=== PATIENT | female | born 1965 | race African-American/Black ===

== ENCOUNTER 2017-04-30 11:57 | Inpatient (IN) | payer OTHER ==
[2017-04-30 12:18] VITALS: BMI 35.1
--- NOTE | 2017-04-30 12:49 | HP ---
CIWA Score - CIWA Score Nausea/Vomitin Muscle Tremors: 3 Anxiety: 3 Agitation: 3 Paroxysmal Sweats: 2 Orientation: 0-Oriented Tacttile Disturbances: 2-Mild Itch/Numbness/Burn Auditory Disturbances: 2-Mild Harshness/Frighten Visual Disturbances: 2-Mild Sensitivity Headache: 2-Mild CIWA-Ar Total Score: 22 Admission ROS BHS - HPI Chief Complaint: I AM TIRED OF DRINKING ALCOHOL,COCAINE AND MARIJUANA Allergies/Adverse Reactions: Allergies Allergy/AdvReac Type Severity Reaction Status Date / Time Fish Containing Products Allergy Verified 04/30/17 12:45 tomato Allergy Verified 04/30/17 12:45 SHERRI Allergy Uncoded 04/30/17 12:45 History of Present Illness: THIS 51 YEARS OLD FEMALE WITH ALCOHOL,COCAINE AND MARIJUANA DEPENDENCE,SEEKING DETOX,WITHDRAWAL SYMPTOM,LAST DETOX [facility] 06/10 NICOTINE DEPENDENCE ANEMIA NON COMPLIANCE LONGEST PERIOD OF SOBRIETY Exam Limitations: No Limitations - Ebola screening Have you traveled outside of the country in the last 21 days: No (N) Have you had contact with anyone from an Ebola affected area: No Have you been sick,other than usual withdrawal symptoms: No Do you have a fever: No - Review of Systems Constitutional: Loss of Appetite, Malaise, Night Sweats, Changes in sleep, Weakness EENT: reports: Nose Congestion Respiratory: reports: No Symptoms reported Cardiac: reports: No Symptoms Reported GI: reports: Diarrhea, Nausea, Vomiting, Abdominal cramping : reports: No Symptoms Reported Musculoskeletal: reports: Back Pain, Muscle Pain Integumentary: reports: Dryness Neuro: reports: Headache, Tremors Endocrine: reports: No Symptoms Reported Hematology: reports: No Symptoms Reported Psychiatric: reports: No Sypmtoms Reported Patient History - Patient Medical History Hx Anemia: Yes (NO MED) Hx Asthma: No Hx Chronic Obstructive Pulmonary Disease (COPD): No Hx Cancer: No Hx Cardiac Disorders: No Hx Congestive Heart Failure: No Hx Hypertension: No Hx Hypercholesterolemia: No Hx Pacemaker: No HX Cerebrovascular Accident: No Hx Seizures: No Hx Dementia: No Hx Diabetes: No Hx Gastrointestinal Disorders: No Hx Liver Disease: No Hx Genitourinary Disorders: No Hx Sexually Transmitted Disorders: No Hx Renal Disease (ESRD): No Hx Thyroid Disease: No Hx Human Immunodeficiency Virus (HIV): No (08/31 NEGATIVE) Hx Hepatitis C: No Hx Depression: No Hx Suicide Attempt: No Hx Bipolar Disorder: No Hx Schizophrenia: No Other Medical History: NO SUICIDAL,NO HOMICIDAL - Patient Surgical History Hx Hysterectomy: Yes (PARTIAL HYSTERCTOMY FOR FIBROID IN 2011) - PPD History Previous Implant?: Yes Documented Results: Negative w/o proof Implanted On Prior [facility] Admission?: No PPD to be Administered?: Yes - Reproductive History Patient is a Female of Child Bearing Age (11 -55 yrs old): Yes Patient : No - Smoking Cessation Smoking history: Current every day smoker Have you smoked in the past 12 months: Yes Aproximately how many cigarettes per day: 20 Cigars Per Day: 0 Hx Chewing Tobacco Use: No Initiated information on smoking cessation: Yes 'Breaking Loose' booklet given: 04/30/17 - Substance & Tx. History Hx Alcohol Use: Yes Hx Substance Use: Yes Substance Use Type: Alcohol, Cocaine, Marijuana Hx Substance Use Treatment: Yes ([facility] IN 06/10) - Substances Abused Alcohol Route: Oral Frequency: Daily Amount used: 1/5TH OF VODKA/3 OF 6 PACKS OF 12 OZS OF BEER Age of first use: 16 Date of Last Use: 04/30/17 Cocaine Route: Smoking Frequency: Daily Amount used: 10$ Age of first use: 16 Date of Last Use: 04/30/17 Marijuana/Hashish Route: Smoking Frequency: 1-3 times last 30 days Amount used: 40$ Age of first use: 16 Date of Last Use: 03/10/17 Family Disease History - Family Disease History Family History: Denies Admission Physical Exam S - Vital Signs Vital Signs: Vital Signs - 24 hr 04/30/17 12:13 Temperature 97.9 F Pulse Rate 91 H Respiratory 18 Rate Blood Pressure 125/82 - Physical General Appearance: Yes: Moderate Distress, Tremorous, Irritable, Sweating, Anxious HEENTM: Yes: Normal ENT Inspection, CARLOS, Pharynx Normal Respiratory: Yes: Lungs Clear, Normal Breath Sounds, No Respiratory Distress Neck: Yes: Within Normal Limits, Supple, Trachea in good position Breast: Yes: Within Normal Limits Cardiology: Yes: Within Normal Limits, Regular Rhythm, Regular Rate, S1, S2 Abdominal: Yes: Within Normal Limits, Normal Bowel Sounds, Non Tender, Flat, Soft Genitourinary: Yes: Within Normal Limits Back: Yes: Within Normal Limits, Muscle Spasm Musculoskeletal: Yes: full range of Motion, Back pain, Muscle Pain Extremities: Yes: Tremors Neurological: Yes: sports reporter II-XII NML intact, Alert, Motor Strength 5/5 Integumentary: Yes: Dry Lymphatic: Yes: Within Normal Limits - Diagnostic (1) Alcohol dependence with uncomplicated withdrawal Current Visit: Yes Status: Acute (2) Cocaine dependence Current Visit: Yes Status: Acute (3) Syncope Current Visit: Yes Status: Acute (4) Nicotine dependence Current Visit: Yes Status: Acute (5) History of partial hysterectomy Current Visit: Yes Status: Acute (6) Cannabis dependence Current Visit: Yes Status: Acute Cleared for Admission [facility] - Detox or Rehab [facility] Level of Care: Medically Managed Detox Regimen/Protocol: Librium [facility] Breath Alcohol Content Breath Alcohol Content: 0.20 Urine Pregancy Test - Result Urine Test Results: Negative- NO Line Present Urine Drug Screen - Results Drug Screen Negative: No Urine Drug Screen Results: NEGRA-Cocaine, OPI-Opiates, BZO-Benzodiazepines
[2017-04-30] MEDS ORDERED: chlordiazePOXIDE HCL 25 MG CAPSULE PO PRN (13:03)
[2017-04-30] MEDS ORDERED: ACETAMINOPHEN 325 MG TABLET (FP) PO PRN (13:03)
[2017-04-30] MEDS ORDERED: P-EPHED 60MG/TRIPROLIDI 2.5MG TABLET PO PRN (13:03)
[2017-04-30] MEDS ORDERED: MAG HYDROX/AL HYDROX/SIMETH 30 ML UNIT-DOSE CUP PO PRN (13:03)
[2017-04-30] MEDS ORDERED: MAGNESIUM HYDROX 2400MG/30ML ORAL SUSPENSION 30 ML CUP PO PRN (13:03)
[2017-04-30] MEDS ORDERED: MAGNESIUM CITRATE 300 ML BOTTLE PO PRN (13:03)
[2017-04-30] MEDS ORDERED: MENTHOL/PHENOL 1 EACH UD MM PRN (13:03)
[2017-04-30] MEDS ORDERED: guaiFENesin/D-METHORPHAN HB 10 ML UNIT-DOSE CUPS PO PRN (13:03)
[2017-04-30] MEDS ORDERED: IBUPROFEN 400 MG TABLET (FP) PO PRN (13:03)
[2017-04-30] MEDS ORDERED: LOPERAMIDE HCL 2 MG CAPSULE PO PRN (13:03)
[2017-04-30] MEDS ORDERED: hydrOXYzine PAMOATE 50 MG CAPSULE (FP) PO PRN (13:03)
[2017-04-30] MEDS ORDERED: chlordiazePOXIDE HCL 25 MG CAPSULE PO ONE (13:03)
[2017-04-30 19:48] LABS: URINE APPEARANCE TURBID; URINE BILIRUBIN NEGATIVE (NEGATIVE); URINE BLOOD 2+ (NEGATIVE); URINE COLOR YELLOW; URINE GLUCOSE (UA) NEGATIVE (NEGATIVE); URINE KETONE NEGATIVE (NEGATIVE); URINE LEUK ESTERASE NEGATIVE (NEGATIVE); URINE NITRITE NEGATIVE (NEGATIVE); URINE UROBILINOGEN 4.0 E.U/dl mg/dL (0.2-1.0)
[2017-04-30 19:50] LABS: URINE PROTEIN 1+ (NEGATIVE)
[2017-04-30 19:53] LABS: URINE BACTERIA MODERATE /hpf (NONE SEEN)
[2017-04-30] MEDS: chlordiazePOXIDE HCL 25 MG CAPSULE PO SCH ×2 (21:08→22:51)
[2017-04-30] MEDS: THIAMINE HCL 100 MG TABLET (FP) PO SCH (22:51)
[2017-05-01] MEDS: chlordiazePOXIDE HCL 25 MG CAPSULE PO SCH ×4 (05:46→22:32)
--- NOTE | 2017-05-01 09:24 | PN ---
BHS CIWA - CIWA Score Nausea/Vomitin-Mild Nausea/No Vomiting Muscle Tremors: 4-Moderate,w/Arms Extend Anxiety: 4-Mod. Anxious/Guarded Agitation: 4-Moderately Restless Paroxysmal Sweats: 1-Minimal Palms Moist Orientation: 0-Oriented Tacttile Disturbances: 1-Very Mild Itch/Numbness Auditory Disturbances: 0-None Visual Disturbances: 0-None Headache: 2-Mild CIWA-Ar Total Score: 17 BHS Progress Note (SOAP) Subjective: sweat tremor headache released by resting anxiety irritable Objective: 05/01/17 09:22 Vital Signs Temperature 98.1 F 05/01/17 06:26 Pulse Rate 67 05/01/17 06:26 Respiratory Rate 16 05/01/17 06:26 Blood Pressure 111/66 05/01/17 06:26 O2 Sat by Pulse Oximetry (%) Laboratory Last Values Urine Color Yellow 04/30/17 18:30 Urine Appearance Turbid 04/30/17 18:30 Urine pH 5.0 (5.0-8.0) 04/30/17 18:30 Ur Specific [place] 1.030 (1.001-1.035) 04/30/17 18:30 Urine Protein 1+ (NEGATIVE) H 04/30/17 18:30 Urine Glucose (UA) Negative (NEGATIVE) 04/30/17 18:30 Urine Ketones Negative (NEGATIVE) 04/30/17 18:30 Urine Blood 2+ (NEGATIVE) H 04/30/17 18:30 Urine Nitrite Negative (NEGATIVE) 04/30/17 18:30 Urine Bilirubin Negative (NEGATIVE) 04/30/17 18:30 Urine Urobilinogen 4.0 e.u/dl mg/dL (0.2-1.0) H 04/30/17 18:30 Ur Leukocyte Esterase Negative (NEGATIVE) 04/30/17 18:30 Urine WBC (Auto) 124 /hpf (3-5) 04/30/17 18:30 Urine RBC (Auto) None /hpf (0-3) 04/30/17 18:30 Urine Bacteria Moderate /hpf (NONE SEEN) 04/30/17 18:30 lab noted Assessment: 05/01/17 09:23 withdrawal sx Plan: continue detox
[2017-05-01 09:52] LABS: HEMATOCRIT 39.8 % (32.4-45.2); HEMOGLOBIN 12.4 GM/dL (10.7-15.3); MCH 25.7 pg (25.7-33.7); MCHC 31.2 g/dl (32.0-36.0); MEAN CELL VOLUME 82.2 fl (80-96); MEAN PLT VOLUME 8.6 fl (7.5-11.1); PLATELET COUNT 183 K/MM3 (134-434); RBC 4.84 M/mm3 (3.60-5.2); RDW 14.9 % (11.6-15.6); WHITE BLOOD COUNT 4.9 K/mm3 (4.0-10.0)
[2017-05-01 09:59] LABS: CHLORIDE 106 mmol/L (98-107); POTASSIUM 3.8 mmol/L (3.5-5.1); SODIUM 142 mmol/L (136-145)
[2017-05-01 10:09] LABS: ALBUMIN 3.3 g/dl (3.4-5.0); ALK PHOS 54 U/L (45-117); ANION GAP 7 (8-16); BILIRUBIN,TOTAL 0.5 mg/dL (0.2-1.0); BLOOD UREA NITROGEN 16 mg/dL (7-18); CALCIUM 7.9 mg/dL (8.5-10.1); CO2 29 mmol/L (21-32); CREATININE 0.8 mg/dL (0.55-1.02); GLUCOSE,RANDOM 91 mg/dL (74-106); SGOT/AST 9 U/L (15-37); SGPT/ALT 14 U/L (12-78); TOT PROT 6.3 g/dl (6.4-8.2)
[2017-05-01] MEDS: PRENATAL VITAMINS W/ FOLIC ACID TABLET (FP) PO SCH (12:25)
--- NOTE | 2017-05-01 17:42 | EKG ---
Test Reason : Blood Pressure : / mmHG Vent. Rate : 077 BPM Atrial Rate : 077 BPM P-R Int : 096 ms QRS Dur : 124 ms QT Int : 434 ms P-R-T Axes : 075 010 006 degrees QTc Int : 491 ms SINUS RHYTHM WITH SHORT PA BASELINE ARTIFACT NO PREVIOUS ECGS AVAILABLE Confirmed by WINSTON ESQUEDA MD ([id number]) on 05/01/2017 5:42:20 PM Referred By: Felipe Oliveira Confirmed By:WINSTON ESQUEDA MD
[2017-05-01] MEDS: THIAMINE HCL 100 MG TABLET (FP) PO SCH (22:32)
[2017-05-02] MEDS: chlordiazePOXIDE HCL 25 MG CAPSULE PO SCH ×2 (05:32→10:47)
--- NOTE | 2017-05-02 09:27 | PN ---
S CIWA - CIWA Score Nausea/Vomitin-Mild Nausea/No Vomiting Muscle Tremors: 3 Anxiety: 3 Agitation: 3 Paroxysmal Sweats: 1-Minimal Palms Moist Orientation: 0-Oriented Tacttile Disturbances: 1-Very Mild Itch/Numbness Auditory Disturbances: 0-None Visual Disturbances: 0-None Headache: 0-None Present CIWA-Ar Total Score: 12 BHS Progress Note (SOAP) Subjective: sweat tremor anxiety irritable Objective: 05/02/17 09:26 Vital Signs Temperature 98.1 F 05/02/17 06:00 Pulse Rate 68 05/02/17 06:00 Respiratory Rate 18 05/02/17 06:00 Blood Pressure 100/61 05/02/17 06:00 O2 Sat by Pulse Oximetry (%) Laboratory Last Values WBC 4.9 K/mm3 (4.0-10.0) 05/01/17 07:00 RBC 4.84 M/mm3 (3.60-5.2) 05/01/17 07:00 Hgb 12.4 GM/dL (10.7-15.3) 05/01/17 07:00 Hct 39.8 % (32.4-45.2) 05/01/17 07:00 MCV 82.2 fl (80-96) 05/01/17 07:00 MCH 25.7 pg (25.7-33.7) 05/01/17 07:00 MCHC 31.2 g/dl (32.0-36.0) L 05/01/17 07:00 RDW 14.9 % (11.6-15.6) 05/01/17 07:00 Plt Count 183 K/MM3 (134-434) 05/01/17 07:00 MPV 8.6 fl (7.5-11.1) 05/01/17 07:00 Sodium 142 mmol/L (136-145) 05/01/17 07:00 Potassium 3.8 mmol/L (3.5-5.1) 05/01/17 07:00 Chloride 106 mmol/L (98-107) 05/01/17 07:00 Carbon Dioxide 29 mmol/L (21-32) 05/01/17 07:00 Anion Gap 7 (8-16) L 05/01/17 07:00 BUN 16 mg/dL (7-18) 05/01/17 07:00 Creatinine 0.8 mg/dL (0.55-1.02) 05/01/17 07:00 Creat Clearance w eGFR > 60 (>60) 05/01/17 07:00 Random Glucose 91 mg/dL (74-106) 05/01/17 07:00 Calcium 7.9 mg/dL (8.5-10.1) L 05/01/17 07:00 Total Bilirubin 0.5 mg/dL (0.2-1.0) 05/01/17 07:00 AST 9 U/L (15-37) L 05/01/17 07:00 ALT 14 U/L (12-78) 05/01/17 07:00 Alkaline Phosphatase 54 U/L (45-117) 05/01/17 07:00 Total Protein 6.3 g/dl (6.4-8.2) L 05/01/17 07:00 Albumin 3.3 g/dl (3.4-5.0) L 05/01/17 07:00 Urine Color Yellow 04/30/17 18:30 Urine Appearance Turbid 04/30/17 18:30 Urine pH 5.0 (5.0-8.0) 04/30/17 18:30 Ur Specific [place] 1.030 (1.001-1.035) 04/30/17 18:30 Urine Protein 1+ (NEGATIVE) H 04/30/17 18:30 Urine Glucose (UA) Negative (NEGATIVE) 04/30/17 18:30 Urine Ketones Negative (NEGATIVE) 04/30/17 18:30 Urine Blood 2+ (NEGATIVE) H 04/30/17 18:30 Urine Nitrite Negative (NEGATIVE) 04/30/17 18:30 Urine Bilirubin Negative (NEGATIVE) 04/30/17 18:30 Urine Urobilinogen 4.0 e.u/dl mg/dL (0.2-1.0) H 04/30/17 18:30 Ur Leukocyte Esterase Negative (NEGATIVE) 04/30/17 18:30 Urine WBC (Auto) 124 /hpf (3-5) 04/30/17 18:30 Urine RBC (Auto) None /hpf (0-3) 04/30/17 18:30 Urine Bacteria Moderate /hpf (NONE SEEN) 04/30/17 18:30 RPR Titer Nonreactive (NONREACTIVE) 05/01/17 07:00 HIV 1&2 Antibody Screen Negative 05/01/17 07:00 HIV P24 Antigen Negative 05/01/17 07:00 lab noted Assessment: 05/02/17 09:27 withdrawal sx Plan: continue detox
[2017-05-02 10:24] LABS: URINE APPEARANCE CLEAR; URINE BILIRUBIN NEGATIVE (NEGATIVE); URINE BLOOD 2+ (NEGATIVE); URINE COLOR LTYELLOW; URINE GLUCOSE (UA) NEGATIVE (NEGATIVE); URINE KETONE NEGATIVE (NEGATIVE); URINE LEUK ESTERASE NEGATIVE (NEGATIVE); URINE NITRITE NEGATIVE (NEGATIVE); URINE PROTEIN NEGATIVE (NEGATIVE); URINE UROBILINOGEN NEGATIVE mg/dL (0.2-1.0)
[2017-05-02 10:43] LABS: EPI CELLS RARE /HPF (FEW); URINE BACTERIA RARE /hpf (NONE SEEN); URINE MUCUS RARE
[2017-05-02] MEDS: PRENATAL VITAMINS W/ FOLIC ACID TABLET (FP) PO SCH (10:47)
[2017-05-02] MEDS: chlordiazePOXIDE 5 MG CAPSULE PO SCH ×2 (17:12→22:30)
[2017-05-02] MEDS: THIAMINE HCL 100 MG TABLET (FP) PO SCH (22:30)
[2017-05-03] MEDS: chlordiazePOXIDE 5 MG CAPSULE PO SCH ×2 (05:54→10:32)
--- NOTE | 2017-05-03 09:17 | PN ---
BHS Progress Note (SOAP) Subjective: mild sweat and tremor less anxious calm alert oriented x 3 Objective: 05/03/17 09:16 Vital Signs Temperature 96.4 F L 05/03/17 06:24 Pulse Rate 66 05/03/17 06:24 Respiratory Rate 16 05/03/17 06:24 Blood Pressure 127/86 05/03/17 06:24 O2 Sat by Pulse Oximetry (%) Laboratory Last Values WBC 4.9 K/mm3 (4.0-10.0) 05/01/17 07:00 RBC 4.84 M/mm3 (3.60-5.2) 05/01/17 07:00 Hgb 12.4 GM/dL (10.7-15.3) 05/01/17 07:00 Hct 39.8 % (32.4-45.2) 05/01/17 07:00 MCV 82.2 fl (80-96) 05/01/17 07:00 MCH 25.7 pg (25.7-33.7) 05/01/17 07:00 MCHC 31.2 g/dl (32.0-36.0) L 05/01/17 07:00 RDW 14.9 % (11.6-15.6) 05/01/17 07:00 Plt Count 183 K/MM3 (134-434) 05/01/17 07:00 MPV 8.6 fl (7.5-11.1) 05/01/17 07:00 Sodium 142 mmol/L (136-145) 05/01/17 07:00 Potassium 3.8 mmol/L (3.5-5.1) 05/01/17 07:00 Chloride 106 mmol/L (98-107) 05/01/17 07:00 Carbon Dioxide 29 mmol/L (21-32) 05/01/17 07:00 Anion Gap 7 (8-16) L 05/01/17 07:00 BUN 16 mg/dL (7-18) 05/01/17 07:00 Creatinine 0.8 mg/dL (0.55-1.02) 05/01/17 07:00 Creat Clearance w eGFR > 60 (>60) 05/01/17 07:00 Random Glucose 91 mg/dL (74-106) 05/01/17 07:00 Calcium 7.9 mg/dL (8.5-10.1) L 05/01/17 07:00 Total Bilirubin 0.5 mg/dL (0.2-1.0) 05/01/17 07:00 AST 9 U/L (15-37) L 05/01/17 07:00 ALT 14 U/L (12-78) 05/01/17 07:00 Alkaline Phosphatase 54 U/L (45-117) 05/01/17 07:00 Total Protein 6.3 g/dl (6.4-8.2) L 05/01/17 07:00 Albumin 3.3 g/dl (3.4-5.0) L 05/01/17 07:00 Urine Color Ltyellow 05/02/17 08:00 Urine Appearance Clear 05/02/17 08:00 Urine pH 6.0 (5.0-8.0) 05/02/17 08:00 Ur Specific [place] 1.023 (1.001-1.035) 05/02/17 08:00 Urine Protein Negative (NEGATIVE) 05/02/17 08:00 Urine Glucose (UA) Negative (NEGATIVE) 05/02/17 08:00 Urine Ketones Negative (NEGATIVE) 05/02/17 08:00 Urine Blood 2+ (NEGATIVE) H 05/02/17 08:00 Urine Nitrite Negative (NEGATIVE) 05/02/17 08:00 Urine Bilirubin Negative (NEGATIVE) 05/02/17 08:00 Urine Urobilinogen Negative mg/dL (0.2-1.0) 05/02/17 08:00 Ur Leukocyte Esterase Negative (NEGATIVE) 05/02/17 08:00 Urine WBC (Auto) <1 /hpf (3-5) 05/02/17 08:00 Urine RBC (Auto) 5 /hpf (0-3) 05/02/17 08:00 Ur Epithelial Cells Rare /HPF (FEW) 05/02/17 08:00 Urine Bacteria Rare /hpf (NONE SEEN) 05/02/17 08:00 Urine Mucus Rare 05/02/17 08:00 RPR Titer Nonreactive (NONREACTIVE) 05/01/17 07:00 HIV 1&2 Antibody Screen Negative 05/01/17 07:00 HIV P24 Antigen Negative 05/01/17 07:00 lab noted Assessment: 05/03/17 09:17 mild withdrawal sx Plan: medically supervised detox
[2017-05-03] MEDS: PRENATAL VITAMINS W/ FOLIC ACID TABLET (FP) PO SCH (10:32)
[2017-05-03] MEDS: chlordiazePOXIDE HCL 10 MG CAPSULE PO SCH ×2 (16:54→22:16)
[2017-05-03] MEDS: THIAMINE HCL 100 MG TABLET (FP) PO SCH (22:16)
[2017-05-04] MEDS: chlordiazePOXIDE HCL 10 MG CAPSULE PO SCH (05:50)
[2017-05-04 06:24] VITALS: BP 122/70; PULSE 66; TEMP 97.1
--- NOTE | 2017-05-04 08:27 | DS ---
[facility] Detox Discharge Summary Admission Date: 04/30/17 Discharge Date: 05/04/17 - History Present History: Alcohol Dependence - Physical Exam Results Vital Signs: Vital Signs Temperature 97.1 F L 05/04/17 06:24 Pulse Rate 66 05/04/17 06:24 Respiratory Rate 16 05/04/17 06:24 Blood Pressure 122/70 05/04/17 06:24 O2 Sat by Pulse Oximetry (%) Pertinent Admission Physical Exam Findings: withdrawal sx Vital Signs Temperature 97.1 F L 05/04/17 06:24 Pulse Rate 66 05/04/17 06:24 Respiratory Rate 16 05/04/17 06:24 Blood Pressure 122/70 05/04/17 06:24 O2 Sat by Pulse Oximetry (%) Laboratory Last Values WBC 4.9 K/mm3 (4.0-10.0) 05/01/17 07:00 RBC 4.84 M/mm3 (3.60-5.2) 05/01/17 07:00 Hgb 12.4 GM/dL (10.7-15.3) 05/01/17 07:00 Hct 39.8 % (32.4-45.2) 05/01/17 07:00 MCV 82.2 fl (80-96) 05/01/17 07:00 MCH 25.7 pg (25.7-33.7) 05/01/17 07:00 MCHC 31.2 g/dl (32.0-36.0) L 05/01/17 07:00 RDW 14.9 % (11.6-15.6) 05/01/17 07:00 Plt Count 183 K/MM3 (134-434) 05/01/17 07:00 MPV 8.6 fl (7.5-11.1) 05/01/17 07:00 Sodium 142 mmol/L (136-145) 05/01/17 07:00 Potassium 3.8 mmol/L (3.5-5.1) 05/01/17 07:00 Chloride 106 mmol/L (98-107) 05/01/17 07:00 Carbon Dioxide 29 mmol/L (21-32) 05/01/17 07:00 Anion Gap 7 (8-16) L 05/01/17 07:00 BUN 16 mg/dL (7-18) 05/01/17 07:00 Creatinine 0.8 mg/dL (0.55-1.02) 05/01/17 07:00 Creat Clearance w eGFR > 60 (>60) 05/01/17 07:00 Random Glucose 91 mg/dL (74-106) 05/01/17 07:00 Calcium 7.9 mg/dL (8.5-10.1) L 05/01/17 07:00 Total Bilirubin 0.5 mg/dL (0.2-1.0) 05/01/17 07:00 AST 9 U/L (15-37) L 05/01/17 07:00 ALT 14 U/L (12-78) 05/01/17 07:00 Alkaline Phosphatase 54 U/L (45-117) 05/01/17 07:00 Total Protein 6.3 g/dl (6.4-8.2) L 05/01/17 07:00 Albumin 3.3 g/dl (3.4-5.0) L 05/01/17 07:00 Urine Color Ltyellow 05/02/17 08:00 Urine Appearance Clear 05/02/17 08:00 Urine pH 6.0 (5.0-8.0) 05/02/17 08:00 Ur Specific [place] 1.023 (1.001-1.035) 05/02/17 08:00 Urine Protein Negative (NEGATIVE) 05/02/17 08:00 Urine Glucose (UA) Negative (NEGATIVE) 05/02/17 08:00 Urine Ketones Negative (NEGATIVE) 05/02/17 08:00 Urine Blood 2+ (NEGATIVE) H 05/02/17 08:00 Urine Nitrite Negative (NEGATIVE) 05/02/17 08:00 Urine Bilirubin Negative (NEGATIVE) 05/02/17 08:00 Urine Urobilinogen Negative mg/dL (0.2-1.0) 05/02/17 08:00 Ur Leukocyte Esterase Negative (NEGATIVE) 05/02/17 08:00 Urine WBC (Auto) <1 /hpf (3-5) 05/02/17 08:00 Urine RBC (Auto) 5 /hpf (0-3) 05/02/17 08:00 Ur Epithelial Cells Rare /HPF (FEW) 05/02/17 08:00 Urine Bacteria Rare /hpf (NONE SEEN) 05/02/17 08:00 Urine Mucus Rare 05/02/17 08:00 RPR Titer Nonreactive (NONREACTIVE) 05/01/17 07:00 HIV 1&2 Antibody Screen Negative 05/01/17 07:00 HIV P24 Antigen Negative 05/01/17 07:00 lab noted - Treatment Hospital Course: Detox Protocol Followed, Detoxed Safely, Responded well, Discharged Condition Good, Rehab Referral Accepted Patient has Accepted a Rehab Referral to: as per counselor arranged - Medication Discharge Medications: Ambulatory Orders NK [No Known Home Medication] 04/30/17 - Diagnosis (1) Alcohol dependence with uncomplicated withdrawal Current Visit: Yes Status: Acute - AMA Did Patient Leave Against Medical Advice: No
== END 2017-05-04 08:40 | disposition home or self-care (01) | DRG 774 ==
LOC: YASAS 11:57 → Y6N 13:47
PROVIDERS: ADMIT Internal Medicine; ATTEND Internal Medicine
PROC: HZ2ZZZZ Detoxification Services for Substance Abuse Treatment (ICD-10-PCS; principal; 2017-04-30)
DX: F10.230 Alcohol dependence with withdrawal, uncomplicated (principal); F14.20 Cocaine dependence, uncomplicated; F17.210 Nicotine dependence, cigarettes, uncomplicated; Z91.018 Allergy to other foods; Z91.013 Allergy to seafood; Z86.79 Personal history of other diseases of the circulatory system; Z90.710 Acquired absence of both cervix and uterus; Z59.0 Homelessness
CPT/HCPCS: 36415; 80053; 81003; 81015; 85027; 86593; 87389; 93005; 93010

== ENCOUNTER 2017-07-24 09:41 | Inpatient (IN) | payer OTHER ==
[2017-07-24 10:23] VITALS: BMI 35.2
--- NOTE | 2017-07-24 13:19 | HP ---
CIWA Score - CIWA Score Nausea/Vomitin-No Nausea/No Vomiting Muscle Tremors: 4-Moderate,w/Arms Extend Anxiety: 4-Mod. Anxious/Guarded Agitation: 4-Moderately Restless Paroxysmal Sweats: No Perspiration Orientation: 0-Oriented Tacttile Disturbances: 0-None Auditory Disturbances: 0-None Visual Disturbances: 0-None Headache: 0-None Present CIWA-Ar Total Score: 12 Admission ROS BHS - HPI Chief Complaint: ALCOHOL WITHDRAWAL SX Allergies/Adverse Reactions: Allergies Allergy/AdvReac Type Severity Reaction Status Date / Time Fish Containing Products Allergy Severe Hives Verified 07/24/17 11:02 tomato Allergy Severe Hives Verified 07/24/17 11:02 Milk Containing Products AdvReac diarrhea Verified 07/24/17 11:02 NKDA Allergy Uncoded 07/24/17 11:51 History of Present Illness: 51 Y/O AA/FEMALE WITH A HX OF ALCOHO,COCAINE AND MARIJUANA DEPENDENCE SEEKING DETOX [place]. Exam Limitations: No Limitations - Ebola screening Have you traveled outside of the country in the last 21 days: No Have you had contact with anyone from an Ebola affected area: No Have you been sick,other than usual withdrawal symptoms: No Do you have a fever: No - Review of Systems Constitutional: Chills, Night Sweats, Changes in sleep EENT: reports: Dental Problems (UPPER /LOWER FULL DENTURES. TOP ONLY IN PLACE.) Respiratory: reports: No Symptoms reported Cardiac: reports: No Symptoms Reported GI: reports: Poor Fluid Intake : reports: No Symptoms Reported Musculoskeletal: reports: Joint Pain (BOTH KNEE PAINS--RECENT CORTISONE INJ. IN KNEES.) Integumentary: reports: Dryness Neuro: reports: Tremors Endocrine: reports: No Symptoms Reported Hematology: reports: Anemia Psychiatric: reports: Orientated x3, Anxious, Depressed Other Systems: Reviewed and Negative Patient History - Patient Medical History Hx Anemia: Yes (NO MED) Hx Asthma: No Hx Chronic Obstructive Pulmonary Disease (COPD): No Hx Cancer: No Hx Cardiac Disorders: No Hx Congestive Heart Failure: No Hx Hypertension: No Hx Hypercholesterolemia: No Hx Pacemaker: No HX Cerebrovascular Accident: No Hx Seizures: No Hx Dementia: No Hx Diabetes: No Hx Gastrointestinal Disorders: No Hx Liver Disease: No Hx Genitourinary Disorders: No Hx Sexually Transmitted Disorders: No Hx Renal Disease (ESRD): No Hx Thyroid Disease: No Hx Human Immunodeficiency Virus (HIV): No ( NEGATIVE HX) Hx Hepatitis C: No Hx Depression: Yes (ON ONTHLY RESPERDAL INJ ,NEXT DUE 08/18/17) Hx Suicide Attempt: Yes (pill overdose at age 16;DENIES CURRENT S/I TODAY) Hx Bipolar Disorder: No Hx Schizophrenia: Yes (schizoaffectiv disorder) - Patient Surgical History Past Surgical History: Yes Hx Neurologic Surgery: No Hx Cataract Extraction: No Hx Cardiac Surgery: No Hx Lung Surgery: No Hx Breast Surgery: No Hx Breast Biopsy: No Hx Abdominal Surgery: Yes (partial hystertctomy in 2011) Hx Appendectomy: No Hx Cholecystectomy: No Hx Genitourinary Surgery: No Hx Section: Yes (x3) Hx Orthopedic Surgery: No Hx Hysterectomy: Yes (PARTIAL HYSTERCTOMY FOR FIBROID IN 2011) Anesthesia Reaction: No - PPD History Previous Implant?: Yes Documented Results: Negative w/proof Implanted On Prior [facility] Admission?: Yes Date: 05/02/17 Results: 0 mm PPD to be Administered?: No - Reproductive History Patient is a Female of Child Bearing Age (11 -55 yrs old): Yes (IN 2011) LMP comment: IN 2012 Patient : No - Smoking Cessation Smoking history: Current every day smoker Have you smoked in the past 12 months: Yes Aproximately how many cigarettes per day: 4 Cigars Per Day: 0 Hx Chewing Tobacco Use: No Initiated information on smoking cessation: Yes 'Breaking Loose' booklet given: 07/24/17 - Substance & Tx. History Hx Alcohol Use: Yes (BEER) Hx Substance Use: Yes (COCAINE/MARIJUANA) Substance Use Type: Alcohol, Cocaine, Marijuana Hx Substance Use Treatment: Yes (LAST [place] AT [facility]) - Substances Abused Crack Route: Smoking Frequency: 3-6 times per week Amount used: $500-600 Age of first use: 20 Date of Last Use: 07/23/17 Alcohol-beer Route: Oral Frequency: Daily Amount used: 3-4 6 pks. Age of first use: 16 Date of Last Use: 07/23/17 Marijuana Route: Smoking Frequency: 1-3 times last 30 days Amount used: $20 Age of first use: 18 Date of Last Use: 06/23/17 Family Disease History - Family Disease History Family Disease History: Other: Mother (HTN) Admission Physical Exam BHS - Vital Signs Vital Signs: Vital Signs - 24 hr 07/24/17 10:21 Temperature 97.6 F Pulse Rate 73 Respiratory 18 Rate Blood Pressure 132/79 - Physical General Appearance: Yes: Moderate Distress, Irritable, Anxious HEENTM: Yes: EOMI, Normocephalic, CARLOS, Pharynx Normal Respiratory: Yes: Chest Non-Tender, Lungs Clear, Normal Breath Sounds, No Respiratory Distress Neck: Yes: Supple, Trachea in good position Breast: Yes: Breast Exam Deferred Cardiology: Yes: Regular Rhythm, Regular Rate, S1, S2 Abdominal: Yes: Normal Bowel Sounds, Non Tender Genitourinary: Yes: Within Normal Limits Back: Yes: Within Normal Limits Musculoskeletal: Yes: full range of Motion, Gait Steady (ANBULATING WITH CANE) Extremities: Yes: Normal Range of Motion, Non-Tender Neurological: Yes: e learning manager II-XII NML intact, Fully Oriented, Alert, Motor Strength 5/5 Integumentary: Yes: Dry, Warm Lymphatic: Yes: Within Normal Limits - Diagnostic (1) Alcohol dependence with uncomplicated withdrawal Current Visit: Yes Status: Acute (2) Cannabis dependence Current Visit: Yes Status: Acute (3) Cocaine dependence Current Visit: Yes Status: Acute (4) Nicotine dependence Current Visit: Yes Status: Acute Qualifiers: Nicotine product type: cigarettes Substance use status: in withdrawal Qualified Code(s): F17.213 - Nicotine dependence, cigarettes, with withdrawal (5) Dermatitis Current Visit: Yes Status: Chronic (6) History of partial hysterectomy Current Visit: Yes Status: Resolved (7) Use of cane as ambulatory aid Current Visit: Yes Status: Chronic Cleared for Admission [facility] - Detox or Rehab [facility] Level of Care: Medically Managed Detox Regimen/Protocol: Librium [facility] Breath Alcohol Content Breath Alcohol Content: 0 Urine Pregancy Test - Result Urine Test Results: Negative- NO Line Present Urine Drug Screen - Results Drug Screen Negative: No Urine Drug Screen Results: NEGRA-Cocaine
[2017-07-24] MEDS ORDERED: NICOTINE POLACRILEX 2 MG GUM BC PRN (13:43)
[2017-07-24] MEDS ORDERED: chlordiazePOXIDE HCL 25 MG CAPSULE PO PRN (13:43)
[2017-07-24] MEDS ORDERED: IBUPROFEN 400 MG TABLET (FP) PO PRN (13:43)
[2017-07-24] MEDS ORDERED: MAGNESIUM CITRATE 300 ML BOTTLE PO PRN (13:43)
[2017-07-24] MEDS ORDERED: LOPERAMIDE HCL 2 MG CAPSULE PO PRN (13:43)
[2017-07-24] MEDS ORDERED: P-EPHED 60MG/TRIPROLIDI 2.5MG TABLET PO PRN (13:43)
[2017-07-24] MEDS ORDERED: MENTHOL/PHENOL 1 EACH UD MM PRN (13:43)
[2017-07-24] MEDS ORDERED: ACETAMINOPHEN 325 MG TABLET (FP) PO PRN (13:43)
[2017-07-24] MEDS ORDERED: MAG HYDROX/AL HYDROX/SIMETH 30 ML UNIT-DOSE CUP PO PRN (13:43)
[2017-07-24] MEDS ORDERED: MAGNESIUM HYDROX 2400MG/30ML ORAL SUSPENSION 30 ML CUP PO PRN (13:43)
[2017-07-24] MEDS ORDERED: guaiFENesin/D-METHORPHAN HB 10 ML UNIT-DOSE CUPS PO PRN (13:43)
[2017-07-24] MEDS: NICOTINE 14 MG/24 HOURS TOPICAL PATCH TD SCH (14:53)
[2017-07-24] MEDS: chlordiazePOXIDE HCL 25 MG CAPSULE PO SCH ×2 (17:38→22:24)
[2017-07-24 20:16] LABS: HEMATOCRIT 38.2 % (32.4-45.2); HEMOGLOBIN 12.6 GM/dL (10.7-15.3); MCH 26.8 pg (25.7-33.7); MCHC 33.1 g/dl (32.0-36.0); MEAN CELL VOLUME 81.1 fl (80-96); MEAN PLT VOLUME 8.2 fl (7.5-11.1); PLATELET COUNT 230 K/MM3 (134-434); RBC 4.71 M/mm3 (3.60-5.2); RDW 14.6 % (11.6-15.6); WHITE BLOOD COUNT 5.6 K/mm3 (4.0-10.0)
[2017-07-24 20:52] LABS: ALBUMIN 3.7 g/dl (3.4-5.0); ANION GAP 7 (8-16); BILIRUBIN,TOTAL 0.5 mg/dL (0.2-1.0); BLOOD UREA NITROGEN 11 mg/dL (7-18); CALCIUM 8.9 mg/dL (8.5-10.1); CHLORIDE 106 mmol/L (98-107); CO2 31 mmol/L (21-32); CREATININE 0.8 mg/dL (0.55-1.02); GLUCOSE,RANDOM 96 mg/dL (74-106); POTASSIUM 3.7 mmol/L (3.5-5.1); SGOT/AST 9 U/L (15-37); SGPT/ALT 11 U/L (12-78); SODIUM 144 mmol/L (136-145); TOT PROT 7.1 g/dl (6.4-8.2)
[2017-07-24 20:53] LABS: ALK PHOS 55 U/L (45-117)
[2017-07-24] MEDS ORDERED: MELATONIN 5 MG TABLETS PO PRN (22:00)
--- NOTE | 2017-07-24 22:05 | EKG ---
Test Reason : Blood Pressure : / mmHG Vent. Rate : 083 BPM Atrial Rate : 083 BPM P-R Int : 124 ms QRS Dur : 092 ms QT Int : 402 ms P-R-T Axes : 073 003 030 degrees QTc Int : 472 ms NORMAL SINUS RHYTHM POSSIBLE LEFT ATRIAL ENLARGEMENT BORDERLINE ECG WHEN COMPARED WITH ECG OF 30-APR-2017 14:41, NO SIGNIFICANT CHANGE WAS FOUND Confirmed by WINSTON ESQUEDA MD ([id number]) on 07/24/2017 10:04:41 PM Referred By: Confirmed By:WINSTON ESQUEDA MD
[2017-07-24] MEDS: NAPROXEN 500 MG TABLET (FP) PO SCH (22:24)
[2017-07-24] MEDS: THIAMINE HCL 100 MG TABLET (FP) PO SCH (22:24)
[2017-07-24] MEDS: FLUOCINONIDE 0.05% CREAM (60 GM TUBE) TP SCH (22:26)
[2017-07-24 23:00] LABS: URINE APPEARANCE TURBID; URINE BILIRUBIN NEGATIVE (<2.0 mg/dL); URINE BLOOD 2+ (NEGATIVE); URINE COLOR YELLOW; URINE GLUCOSE (UA) NEGATIVE (NEGATIVE); URINE KETONE NEGATIVE (NEGATIVE); URINE LEUK ESTERASE NEGATIVE (NEGATIVE); URINE NITRITE NEGATIVE (NEGATIVE); URINE UROBILINOGEN 4.0 E.U/dl mg/dL (0.2-1.0)
[2017-07-24 23:07] LABS: URINE PROTEIN 1+ (NEGATIVE)
[2017-07-24 23:11] LABS: URINE MUCUS FEW
[2017-07-25] MEDS: chlordiazePOXIDE HCL 25 MG CAPSULE PO SCH ×4 (05:54→22:19)
--- NOTE | 2017-07-25 09:55 | CONSULT ---
[facility] Psychiatric Consult - Data Date of interview: 07/25/17 Admission source: [facility] Identifying data: Patient is a 51 year old single female, mother of five, unemployed, receiving disability, and current lives with a roomate. This is one of multiple admissions for patient. Pt. admitted to for alcohol and cocaine dependence. Substance Abuse History: Following information confirmed with Ms. Dorsey: Smoking Cessation. Smoking history: Current every day smoker. Have you smoked in the past 12 months: Yes. Aproximately how many cigarettes per day: 4. Cigars Per Day: 0. Hx Chewing Tobacco Use: No. Initiated information on smoking cessation: Yes. 'Breaking Loose' booklet given: 07/24/17. - Substance & Tx. History. Hx Alcohol Use: Yes (BEER). Hx Substance Use: Yes (COCAINE/ MARIJUANA). Substance Use Type: Alcohol, Cocaine, Marijuana. Hx Substance Use Treatment: Yes (LAST TX AT [facility]). - Substances Abused. Crack. Route: Smoking. Frequency: 3-6 times per week. Amount used: $500-600. Age of first use: 20. Date of Last Use: 07/23/17. Alcohol-beer. Route: Oral. Frequency : Daily. Amount used: 3-4 6 pks. Age of first use: 16. Date of Last Use: . Marijuana. Route: Smoking. Frequency: 1-3 times last 30 days. Amount used: $20. Age of first use: 18. Date of Last Use: 06/23/17 Medical History: Anemia, PARTIAL HYSTERCTOMY FOR FIBROID IN 2011 Psychiatric History: Patient's first psychiatric contact was at 18 years of age at [facility].Pt. reports multiple psychiatric hospitalizations but is unable to recall the dates and names of the hospitals. Outpatient care is provided at the [facility] in the [place]. Pt. has a diagnosis of Schizoaffective disorder and is currently receiving Invega sustenna injections. Last Invega injection was received on 07/14/17. Pt. denies h/o suicide attempts. Pt. denies suicidal and homicidal ideation. Physical/Sexual Abuse/Trauma History: Denies. Mental Status Exam - Mental Status Exam Alert and Oriented to: Time, Place, Person Cognitive Function: Good Patient Appearance: Well Groomed Mood: Euthymic Affect: Mood Congruent Patient Behavior: Guarded, Cooperative Speech Pattern: Appropriate Voice Loudness: Normal Thought Process: Goal Oriented Thought Disorder: Not Present Hallucinations: Denies Suicidal Ideation: Denies Homicidal Ideation: Denies Insight/Judgement: Poor Sleep: Fair Appetite: Fair Muscle strength/Tone: Normal Gait/Station: Other (Did not observe patient) Additional Comments: Did not observe patient's gait. Psychiatric Findings - Problem List ([place] 1, 2,3) (1) Schizoaffective disorder Current Visit: Yes Status: Chronic Comment: Pt. reports invega sustenna monthly. Last injection received on 07/14/17 (2) Alcohol dependence with uncomplicated withdrawal Current Visit: Yes Status: Acute (3) Cannabis dependence Current Visit: Yes Status: Acute (4) Cocaine dependence Current Visit: Yes Status: Acute (5) Nicotine dependence Current Visit: Yes Status: Chronic Qualifiers: Nicotine product type: cigarettes Substance use status: in withdrawal Qualified Code(s): F17.213 - Nicotine dependence, cigarettes, with withdrawal - Initial Treatment Plan Initial Treatment Plan: Psychoeducation provided. Detoxification in progress. Observation.
[2017-07-25] MEDS: PRENATAL VITAMINS W/ FOLIC ACID TABLET (FP) PO SCH (10:51)
[2017-07-25] MEDS: NAPROXEN 500 MG TABLET (FP) PO SCH ×2 (10:51→22:18)
[2017-07-25] MEDS: FLUOCINONIDE 0.05% CREAM (60 GM TUBE) TP SCH ×2 (10:51→22:48)
[2017-07-25] MEDS: NICOTINE 14 MG/24 HOURS TOPICAL PATCH TD SCH (10:52)
--- NOTE | 2017-07-25 12:16 | PN ---
[facility] CIWA - CIWA Score Nausea/Vomitin-Mild Nausea/No Vomiting Muscle Tremors: 3 Anxiety: 3 Agitation: 3 Paroxysmal Sweats: 1-Minimal Palms Moist Orientation: 0-Oriented Tacttile Disturbances: 0-None Auditory Disturbances: 0-None Visual Disturbances: 0-None Headache: 0-None Present CIWA-Ar Total Score: 11 [facility] Progress Note (SOAP) Subjective: mild gi distress, tremor sweat restlessness ambulate with cane steady gait Objective: 07/25/17 12:13 Vital Signs Temperature 98.1 F 07/25/17 10:38 Pulse Rate 79 07/25/17 10:38 Respiratory Rate 20 07/25/17 10:38 Blood Pressure 129/77 07/25/17 10:38 O2 Sat by Pulse Oximetry (%) Laboratory Last Values WBC 5.6 K/mm3 (4.0-10.0) 07/24/17 12:00 RBC 4.71 M/mm3 (3.60-5.2) 07/24/17 12:00 Hgb 12.6 GM/dL (10.7-15.3) 07/24/17 12:00 Hct 38.2 % (32.4-45.2) 07/24/17 12:00 MCV 81.1 fl (80-96) 07/24/17 12:00 MCH 26.8 pg (25.7-33.7) 07/24/17 12:00 MCHC 33.1 g/dl (32.0-36.0) 07/24/17 12:00 RDW 14.6 % (11.6-15.6) 07/24/17 12:00 Plt Count 230 K/MM3 (134-434) D 07/24/17 12:00 MPV 8.2 fl (7.5-11.1) 07/24/17 12:00 Sodium 144 mmol/L (136-145) 07/24/17 12:00 Potassium 3.7 mmol/L (3.5-5.1) 07/24/17 12:00 Chloride 106 mmol/L (98-107) 07/24/17 12:00 Carbon Dioxide 31 mmol/L (21-32) 07/24/17 12:00 Anion Gap 7 (8-16) L 07/24/17 12:00 BUN 11 mg/dL (7-18) 07/24/17 12:00 Creatinine 0.8 mg/dL (0.55-1.02) 07/24/17 12:00 Creat Clearance w eGFR > 60 (>60) 07/24/17 12:00 Random Glucose 96 mg/dL (74-106) 07/24/17 12:00 Calcium 8.9 mg/dL (8.5-10.1) 07/24/17 12:00 Total Bilirubin 0.5 mg/dL (0.2-1.0) 07/24/17 12:00 AST 9 U/L (15-37) L 07/24/17 12:00 ALT 11 U/L (12-78) L 07/24/17 12:00 Alkaline Phosphatase 55 U/L (45-117) 07/24/17 12:00 Total Protein 7.1 g/dl (6.4-8.2) 07/24/17 12:00 Albumin 3.7 g/dl (3.4-5.0) 07/24/17 12:00 Urine Color Yellow 07/24/17 23:00 Urine Appearance Turbid 07/24/17 23:00 Urine pH 5.0 (5.0-8.0) 07/24/17 23:00 Ur Specific [place] 1.031 (1.001-1.035) 07/24/17 23:00 Urine Protein 1+ (NEGATIVE) H 07/24/17 23:00 Urine Glucose (UA) Negative (NEGATIVE) 07/24/17 23:00 Urine Ketones Negative (NEGATIVE) 07/24/17 23:00 Urine Blood 2+ (NEGATIVE) H 07/24/17 23:00 Urine Nitrite Negative (NEGATIVE) 07/24/17 23:00 Urine Bilirubin Negative (<2.0 mg/dL) 07/24/17 23:00 Urine Urobilinogen 4.0 e.u/dl mg/dL (0.2-1.0) H 07/24/17 23:00 Ur Leukocyte Esterase Negative (NEGATIVE) 07/24/17 23:00 Urine WBC (Auto) 62 /hpf (3-5) 07/24/17 23:00 Urine RBC (Auto) 12 /hpf (0-3) 07/24/17 23:00 Urine Mucus Few 07/24/17 23:00 RPR Titer Nonreactive (NONREACTIVE) 07/24/17 12:00 HIV 1&2 Antibody Screen Negative 07/24/17 11:00 HIV P24 Antigen Negative 07/24/17 11:00 lab noted repeat ua Assessment: 07/25/17 12:15 withdrawal sx Plan: continue detox
[2017-07-25] MEDS: THIAMINE HCL 100 MG TABLET (FP) PO SCH (22:18)
[2017-07-26] MEDS: chlordiazePOXIDE HCL 25 MG CAPSULE PO SCH ×2 (05:19→10:17)
--- NOTE | 2017-07-26 09:52 | PN ---
[facility] CIWA - CIWA Score Nausea/Vomitin-No Nausea/No Vomiting Muscle Tremors: 3 Anxiety: 3 Agitation: 3 Paroxysmal Sweats: 1-Minimal Palms Moist Orientation: 0-Oriented Tacttile Disturbances: 0-None Auditory Disturbances: 0-None Visual Disturbances: 0-None Headache: 0-None Present CIWA-Ar Total Score: 10 S Progress Note (SOAP) Subjective: sweat tremor anxiety restlessness denies gi distress Objective: 07/26/17 09:52 Vital Signs Temperature 98.8 F 07/26/17 09:29 Pulse Rate 79 07/26/17 09:29 Respiratory Rate 18 07/26/17 09:29 Blood Pressure 121/76 07/26/17 09:29 O2 Sat by Pulse Oximetry (%) Laboratory Last Values WBC 5.6 K/mm3 (4.0-10.0) 07/24/17 12:00 RBC 4.71 M/mm3 (3.60-5.2) 07/24/17 12:00 Hgb 12.6 GM/dL (10.7-15.3) 07/24/17 12:00 Hct 38.2 % (32.4-45.2) 07/24/17 12:00 MCV 81.1 fl (80-96) 07/24/17 12:00 MCH 26.8 pg (25.7-33.7) 07/24/17 12:00 MCHC 33.1 g/dl (32.0-36.0) 07/24/17 12:00 RDW 14.6 % (11.6-15.6) 07/24/17 12:00 Plt Count 230 K/MM3 (134-434) D 07/24/17 12:00 MPV 8.2 fl (7.5-11.1) 07/24/17 12:00 Sodium 144 mmol/L (136-145) 07/24/17 12:00 Potassium 3.7 mmol/L (3.5-5.1) 07/24/17 12:00 Chloride 106 mmol/L (98-107) 07/24/17 12:00 Carbon Dioxide 31 mmol/L (21-32) 07/24/17 12:00 Anion Gap 7 (8-16) L 07/24/17 12:00 BUN 11 mg/dL (7-18) 07/24/17 12:00 Creatinine 0.8 mg/dL (0.55-1.02) 07/24/17 12:00 Creat Clearance w eGFR > 60 (>60) 07/24/17 12:00 Random Glucose 96 mg/dL (74-106) 07/24/17 12:00 Calcium 8.9 mg/dL (8.5-10.1) 07/24/17 12:00 Total Bilirubin 0.5 mg/dL (0.2-1.0) 07/24/17 12:00 AST 9 U/L (15-37) L 07/24/17 12:00 ALT 11 U/L (12-78) L 07/24/17 12:00 Alkaline Phosphatase 55 U/L (45-117) 07/24/17 12:00 Total Protein 7.1 g/dl (6.4-8.2) 07/24/17 12:00 Albumin 3.7 g/dl (3.4-5.0) 07/24/17 12:00 Urine Color Yellow 07/24/17 23:00 Urine Appearance Turbid 07/24/17 23:00 Urine pH 5.0 (5.0-8.0) 07/24/17 23:00 Ur Specific [place] 1.031 (1.001-1.035) 07/24/17 23:00 Urine Protein 1+ (NEGATIVE) H 07/24/17 23:00 Urine Glucose (UA) Negative (NEGATIVE) 07/24/17 23:00 Urine Ketones Negative (NEGATIVE) 07/24/17 23:00 Urine Blood 2+ (NEGATIVE) H 07/24/17 23:00 Urine Nitrite Negative (NEGATIVE) 07/24/17 23:00 Urine Bilirubin Negative (<2.0 mg/dL) 07/24/17 23:00 Urine Urobilinogen 4.0 e.u/dl mg/dL (0.2-1.0) H 07/24/17 23:00 Ur Leukocyte Esterase Negative (NEGATIVE) 07/24/17 23:00 Urine WBC (Auto) 62 /hpf (3-5) 07/24/17 23:00 Urine RBC (Auto) 12 /hpf (0-3) 07/24/17 23:00 Urine Mucus Few 07/24/17 23:00 RPR Titer Nonreactive (NONREACTIVE) 07/24/17 12:00 HIV 1&2 Antibody Screen Negative 07/24/17 11:00 HIV P24 Antigen Negative 07/24/17 11:00 lab noted 07/26/17 09:53 repeat ua result pending Assessment: 07/26/17 09:54 withdrawal sx Plan: continue detox
[2017-07-26] MEDS: PRENATAL VITAMINS W/ FOLIC ACID TABLET (FP) PO SCH (10:17)
[2017-07-26] MEDS: NAPROXEN 500 MG TABLET (FP) PO SCH ×2 (10:17→22:09)
[2017-07-26] MEDS: NICOTINE 14 MG/24 HOURS TOPICAL PATCH TD SCH (10:18)
[2017-07-26] MEDS: FLUOCINONIDE 0.05% CREAM (60 GM TUBE) TP SCH ×2 (10:18→22:50)
[2017-07-26 14:54] LABS: URINE APPEARANCE CLEAR; URINE BILIRUBIN NEGATIVE (<2.0 mg/dL); URINE BLOOD NEGATIVE (NEGATIVE); URINE COLOR LTYELLOW; URINE GLUCOSE (UA) NEGATIVE (NEGATIVE); URINE KETONE NEGATIVE (NEGATIVE); URINE LEUK ESTERASE NEGATIVE (NEGATIVE); URINE NITRITE NEGATIVE (NEGATIVE); URINE PROTEIN NEGATIVE (NEGATIVE); URINE UROBILINOGEN NEGATIVE mg/dL (0.2-1.0)
[2017-07-26] MEDS: chlordiazePOXIDE 5 MG CAPSULE PO SCH ×2 (18:00→22:09)
[2017-07-26] MEDS: THIAMINE HCL 100 MG TABLET (FP) PO SCH (22:09)
[2017-07-27] MEDS: chlordiazePOXIDE 5 MG CAPSULE PO SCH (05:33)
--- NOTE | 2017-07-27 08:37 | PN ---
[facility] Progress Note Note: received nurse reported that the patient is asking for her skin cream for 2 days and no receive her skin cream for two days case discussed with pharmacist that the patient has both of her creams but documented as refusal case discussed with the nurse encourage to administer the skin cream to the patient
[2017-07-27 08:38] VITALS: BP 114/72; PULSE 70; TEMP 98.6
[2017-07-27] MEDS ORDERED: COLLOIDAL OATMEAL 1 BAR EACH TP PRN (09:16)
[2017-07-27] MEDS ORDERED: TRIAMCINOLONE ACET 0.1% CREAM 15 GM TUBE TP SCH (10:00)
[2017-07-27] MEDS ORDERED: FLUOCINONIDE 0.05% TP SCH (10:00)
[2017-07-27] MEDS ORDERED: TRIAMCINOLONE 0.1% TP SCH (10:00)
--- NOTE | 2017-07-27 11:39 | DS ---
[facility] Detox Discharge Summary Admission Date: 07/24/17 Discharge Date: 07/27/17 - History Present History: Alcohol Dependence Additional Comments: 51 years old female demands to use her own medication staff and the patient to her property fetch her own medications sent to pharmacy for verification patient insists to leave the facility insists to terminate alcohol detox regimen health teaching on sobriety and recovery aftercare in [facility] as counselor arranged - Physical Exam Results Vital Signs: Vital Signs Temperature 98.6 F 07/27/17 04:00 Pulse Rate 70 07/27/17 04:00 Respiratory Rate 20 07/27/17 04:00 Blood Pressure 114/72 07/27/17 04:00 O2 Sat by Pulse Oximetry (%) Pertinent Admission Physical Exam Findings: withdrawal sx Vital Signs Temperature 98.6 F 07/27/17 04:00 Pulse Rate 70 07/27/17 04:00 Respiratory Rate 20 07/27/17 04:00 Blood Pressure 114/72 07/27/17 04:00 O2 Sat by Pulse Oximetry (%) Laboratory Last Values WBC 5.6 K/mm3 (4.0-10.0) 07/24/17 12:00 RBC 4.71 M/mm3 (3.60-5.2) 07/24/17 12:00 Hgb 12.6 GM/dL (10.7-15.3) 07/24/17 12:00 Hct 38.2 % (32.4-45.2) 07/24/17 12:00 MCV 81.1 fl (80-96) 07/24/17 12:00 MCH 26.8 pg (25.7-33.7) 07/24/17 12:00 MCHC 33.1 g/dl (32.0-36.0) 07/24/17 12:00 RDW 14.6 % (11.6-15.6) 07/24/17 12:00 Plt Count 230 K/MM3 (134-434) D 07/24/17 12:00 MPV 8.2 fl (7.5-11.1) 07/24/17 12:00 Sodium 144 mmol/L (136-145) 07/24/17 12:00 Potassium 3.7 mmol/L (3.5-5.1) 07/24/17 12:00 Chloride 106 mmol/L (98-107) 07/24/17 12:00 Carbon Dioxide 31 mmol/L (21-32) 07/24/17 12:00 Anion Gap 7 (8-16) L 07/24/17 12:00 BUN 11 mg/dL (7-18) 07/24/17 12:00 Creatinine 0.8 mg/dL (0.55-1.02) 07/24/17 12:00 Creat Clearance w eGFR > 60 (>60) 07/24/17 12:00 Random Glucose 96 mg/dL (74-106) 07/24/17 12:00 Calcium 8.9 mg/dL (8.5-10.1) 07/24/17 12:00 Total Bilirubin 0.5 mg/dL (0.2-1.0) 07/24/17 12:00 AST 9 U/L (15-37) L 07/24/17 12:00 ALT 11 U/L (12-78) L 07/24/17 12:00 Alkaline Phosphatase 55 U/L (45-117) 07/24/17 12:00 Total Protein 7.1 g/dl (6.4-8.2) 07/24/17 12:00 Albumin 3.7 g/dl (3.4-5.0) 07/24/17 12:00 Urine Color Ltyellow 07/26/17 10:00 Urine Appearance Clear 07/26/17 10:00 Urine pH 7.0 (5.0-8.0) D 07/26/17 10:00 Ur Specific [place] 1.010 (1.001-1.035) 07/26/17 10:00 Urine Protein Negative (NEGATIVE) 07/26/17 10:00 Urine Glucose (UA) Negative (NEGATIVE) 07/26/17 10:00 Urine Ketones Negative (NEGATIVE) 07/26/17 10:00 Urine Blood Negative (NEGATIVE) 07/26/17 10:00 Urine Nitrite Negative (NEGATIVE) 07/26/17 10:00 Urine Bilirubin Negative (<2.0 mg/dL) 07/26/17 10:00 Urine Urobilinogen Negative mg/dL (0.2-1.0) 07/26/17 10:00 Ur Leukocyte Esterase Negative (NEGATIVE) 07/26/17 10:00 Urine WBC (Auto) 62 /hpf (3-5) 07/24/17 23:00 Urine RBC (Auto) 12 /hpf (0-3) 07/24/17 23:00 Urine Mucus Few 07/24/17 23:00 RPR Titer Nonreactive (NONREACTIVE) 07/24/17 12:00 HIV 1&2 Antibody Screen Negative 07/24/17 11:00 HIV P24 Antigen Negative 07/24/17 11:00 lab noted - Treatment Hospital Course: Detox Protocol Followed, Responded well Patient has Accepted a Rehab Referral to: [facility] - Medication Discharge Medications: Ambulatory Orders Fluocinonide 0.05% Cream [Lidex 0.05% Cream -] 1 applic TP BID 07/24/17 Naproxen [Naprosyn -] 500 mg PO BID 07/24/17 Risperidone Microspheres [Risperdal Consta] 0 mg IM MONTHLY 07/24/17 Triamcinolone 0.1% Cream [Aristocort] 0 gm TP BID 07/24/17 - Diagnosis (1) Alcohol dependence with uncomplicated withdrawal Status: Acute (2) Dermatitis Status: Chronic (3) Nicotine dependence Status: Acute Qualifiers: Nicotine product type: cigarettes Substance use status: in withdrawal Qualified Code(s): F17.213 - Nicotine dependence, cigarettes, with withdrawal (4) Schizoaffective disorder Status: Suspected Qualifiers: Schizoaffective disorder type: other Qualified Code(s): F25.8 - Other schizoaffective disorders - AMA Did Patient Leave Against Medical Advice: Yes
[2017-07-27] MEDS ORDERED: chlordiazePOXIDE HCL 10 MG CAPSULE PO SCH (17:00)
== END 2017-07-27 10:18 | disposition left against medical advice (07) | DRG 770 ==
LOC: YASAS 09:41 → Y6N 14:00
PROVIDERS: ADMIT Internal Medicine; ATTEND Internal Medicine
PROC: HZ2ZZZZ Detoxification Services for Substance Abuse Treatment (ICD-10-PCS; principal; 2017-07-24)
DX: F10.230 Alcohol dependence with withdrawal, uncomplicated (principal); F14.20 Cocaine dependence, uncomplicated; F12.20 Cannabis dependence, uncomplicated; F17.210 Nicotine dependence, cigarettes, uncomplicated; F25.9 Schizoaffective disorder, unspecified; F32.9 Major depressive disorder, single episode, unspecified; L30.9 Dermatitis, unspecified; D64.9 Anemia, unspecified; Z91.5 Personal history of self-harm
CPT/HCPCS: 36415; 80053; 81003; 81015; 85027; 86593; 87389; 93005; 93010

== ENCOUNTER 2018-04-04 10:45 | Inpatient (IN) | payer OTHER ==
[2018-04-04 11:04] VITALS: BMI 31.6
--- NOTE | 2018-04-04 12:04 | HP ---
CIWA Score Nausea/Vomitin Muscle Tremors: 2 Anxiety: 2 Agitation: 2 Paroxysmal Sweats: 1-Minimal Palms Moist Orientation: 0-Oriented Tacttile Disturbances: 1-Very Mild Itch/Numbness Auditory Disturbances: 1-Very Mild Visual Disturbances: 0-None Headache: 2-Mild CIWA-Ar Total Score: 13 - Admission Criteria [facility] Guidelines: Admission for Medically Managed Detox: Requires at least one of the followin. CIWA greater than 12 2. Seizures within the past 24 hours 3. Delirium tremens within the past 24 hours 4. Hallucinations within the past 24 hours 5. Acute intervention needed for co occurring medical disorder 6. Acute intervention needed for co occurring psychiatric disorder 7. Severe withdrawal that cannot be handled at a lower level of care (continued vomiting, continued diarrhea, abnormal vital signs) requiring intravenous medication and/or fluids 8. Patient presents the following: CIWA greater than 12 Admission Criteria Met: Admission criteria met Admission ROS BHS - HPI Chief Complaint: i need help to stop drinking alcohol,cocaine and marijuana Allergies/Adverse Reactions: Allergies Allergy/AdvReac Type Severity Reaction Status Date / Time Fish Containing Products Allergy Severe Hives Verified 04/04/18 11:44 tomato Allergy Severe Hives Verified 04/04/18 11:44 Milk Containing Products AdvReac diarrhea Verified 04/04/18 11:44 NKDA Allergy Uncoded 04/04/18 11:44 History of Present Illness: this 52 years old female with alcohol,cocaine and marijuana dependence,seeking detox,withdrawal symptom,last detox [facility] 10/11 completed history knees injury both ,ambulation with cane schizoaffective disorder obesity eczema longest period of sobriety 8 years plan for rehab Exam Limitations: No Limitations - Ebola screening Have you traveled outside of the country in the last 21 days: No Have you had contact with anyone from an Ebola affected area: No Have you been sick,other than usual withdrawal symptoms: No Do you have a fever: No - Review of Systems Constitutional: Chills, Loss of Appetite, Malaise, Night Sweats, Changes in sleep, Weakness, Other (obese) EENT: reports: Tearing, Nose Congestion Respiratory: reports: No Symptoms reported Cardiac: reports: No Symptoms Reported GI: reports: Nausea, Poor Appetite, Abdominal cramping : reports: No Symptoms Reported Musculoskeletal: reports: Back Pain, Joint Pain, Muscle Pain, Other (both knees arthritis) Integumentary: reports: Dryness Neuro: reports: Headache, Tremors Endocrine: reports: No Symptoms Reported Hematology: reports: No Symptoms Reported Psychiatric: reports: No Sypmtoms Reported, Judgement Intact, Mood/Affect Appropiate, Orientated x3 Patient History - Patient Medical History Hx Anemia: Yes (NO MED) Hx Asthma: No Hx Chronic Obstructive Pulmonary Disease (COPD): No Hx Cancer: No Hx Cardiac Disorders: No Hx Congestive Heart Failure: No Hx Hypertension: No Hx Hypercholesterolemia: No Hx Pacemaker: No HX Cerebrovascular Accident: No Hx Seizures: No Hx Dementia: No Hx Diabetes: No Hx Gastrointestinal Disorders: No Hx Liver Disease: No Hx Genitourinary Disorders: No Hx Sexually Transmitted Disorders: No Hx Renal Disease (ESRD): No Hx Thyroid Disease: No Hx Human Immunodeficiency Virus (HIV): No ( NEGATIVE HX) Hx Hepatitis C: No Hx Depression: Yes Hx Suicide Attempt: Yes (Pt states she tried to overdose in 2015) Hx Bipolar Disorder: No Hx Schizophrenia: No - Patient Surgical History Past Surgical History: Yes Hx Neurologic Surgery: No Hx Cataract Extraction: No Hx Cardiac Surgery: No Hx Lung Surgery: No Hx Breast Surgery: No Hx Breast Biopsy: No Hx Abdominal Surgery: Yes (partial hystertctomy in 2011) Hx Appendectomy: No Hx Cholecystectomy: No Hx Genitourinary Surgery: No Hx Section: Yes (x3) Hx Orthopedic Surgery: No Hx Hysterectomy: Yes (PARTIAL HYSTERCTOMY FOR FIBROID IN 2011) Anesthesia Reaction: No - PPD History Previous Implant?: Yes Documented Results: Negative w/proof Implanted On Prior [facility] Admission?: Yes Date: 05/02/17 Results: 0 mm PPD to be Administered?: No - Reproductive History Patient : No - Smoking Cessation Smoking history: Current every day smoker Have you smoked in the past 12 months: Yes Aproximately how many cigarettes per day: 20 Cigars Per Day: 0 Hx Chewing Tobacco Use: No Initiated information on smoking cessation: Yes 'Breaking Loose' booklet given: 04/04/18 - Substance & Tx. History Hx Alcohol Use: Yes Hx Substance Use: Yes Substance Use Type: Alcohol, Cocaine, Marijuana Hx Substance Use Treatment: Yes ([facility] 10/11) - Substances Abused Alcohol Route: Oral Frequency: Daily Amount used: fifth rum/ 3 6pk beers Age of first use: 16 Date of Last Use: 04/02/18 Crack Route: Smoking Frequency: Daily Amount used: $100 and up Age of first use: 20 Date of Last Use: 04/04/18 Marijuana/Hashish Route: Smoking Frequency: 1-3 times last 30 days Amount used: $20 Age of first use: 16 Date of Last Use: 03/14/18 Family Disease History - Family Disease History Family Disease History: Other: Mother (HTN) Admission Physical Exam [facility] - Vital Signs Vital Signs: Vital Signs - 24 hr 04/04/18 11:02 Temperature 98.2 F Pulse Rate 88 Respiratory 18 Rate Blood Pressure 127/77 - Physical General Appearance: Yes: Moderate Distress, Obese, Tremorous, Irritable, Sweating HEENTM: Yes: Hearing grossly Normal, Normal ENT Inspection, CARLOS, Pharynx Normal Respiratory: Yes: Lungs Clear, Normal Breath Sounds, No Respiratory Distress Neck: Yes: Within Normal Limits, Supple, Trachea in good position Breast: Yes: Breast Exam Deferred Cardiology: Yes: Within Normal Limits, Regular Rhythm, Regular Rate, S1, S2 Abdominal: Yes: Within Normal Limits, Normal Bowel Sounds, Soft, Organomegaly Genitourinary: Yes: Within Normal Limits Back: Yes: Muscle Spasm Musculoskeletal: Yes: Back pain, Muscle Pain Extremities: Yes: Tremors, Swelling, Other (pain in both knees right more than the left) Neurological: Yes: nuclear instructor II-XII NML intact, Fully Oriented, Alert, Motor Strength 5/5 Integumentary: Yes: Dry Lymphatic: Yes: Within Normal Limits - Diagnostic (1) Alcohol dependence with uncomplicated withdrawal Current Visit: Yes Status: Acute (2) Cannabis dependence Current Visit: No Status: Acute (3) Cocaine dependence Current Visit: No Status: Chronic (4) Nicotine dependence Current Visit: No Status: Acute Qualifiers: Nicotine product type: cigarettes Substance use status: in withdrawal Qualified Code(s): F17.213 - Nicotine dependence, cigarettes, with withdrawal (5) Syncope Current Visit: No Status: Acute (6) Use of cane as ambulatory aid Current Visit: No Status: Chronic (7) Schizoaffective disorder Current Visit: No Status: Chronic Qualifiers: Schizoaffective disorder type: other Qualified Code(s): F25.8 - Other schizoaffective disorders Comment: Pt. reports invega sustenna monthly. Last injection received on (8) History of partial hysterectomy Current Visit: No Status: Resolved (9) Eczema Current Visit: Yes Status: Acute Cleared for Admission [facility] - Detox or Rehab [facility] Level of Care: Medically Managed Detox Regimen/Protocol: Librium [facility] Breath Alcohol Content Breath Alcohol Content: 0 Urine Pregancy Test - Result Urine Test Results: Negative- NO Line Present Urine Drug Screen - Results Drug Screen Negative: No Urine Drug Screen Results: NEGRA-Cocaine
[2018-04-04] MEDS ORDERED: hydrOXYzine PAMOATE 50 MG CAPSULE (FP) PO PRN (12:22)
[2018-04-04] MEDS ORDERED: MAGNESIUM HYDROX 2400MG/30ML ORAL SUSPENSION 30 ML CUP PO PRN (12:22)
[2018-04-04] MEDS ORDERED: MAG HYDROX/AL HYDROX/SIMETH 30 ML UNIT-DOSE CUP PO PRN (12:22)
[2018-04-04] MEDS ORDERED: MAGNESIUM CITRATE 300 ML BOTTLE PO PRN (12:22)
[2018-04-04] MEDS ORDERED: ACETAMINOPHEN 325 MG TABLET (FP) PO PRN (12:22)
[2018-04-04] MEDS ORDERED: MENTHOL/PHENOL 1 EACH UD MM PRN (12:22)
[2018-04-04] MEDS ORDERED: guaiFENesin/D-METHORPHAN HB 10 ML UNIT-DOSE CUPS PO PRN (12:22)
[2018-04-04] MEDS ORDERED: IBUPROFEN 400 MG TABLET (FP) PO PRN (12:22)
[2018-04-04] MEDS ORDERED: P-EPHED 60MG/TRIPROLIDI 2.5MG TABLET PO PRN (12:22)
[2018-04-04] MEDS ORDERED: LOPERAMIDE HCL 2 MG CAPSULE PO PRN (12:22)
[2018-04-04] MEDS ORDERED: chlordiazePOXIDE HCL 25 MG CAPSULE PO PRN (12:22)
[2018-04-04] MEDS: GABAPENTIN 100 MG CAPSULE (FP) PO SCH ×2 (14:05→22:34)
[2018-04-04] MEDS: FLUOCINONIDE 0.05% TOP OINT (60 GM TUBE) TP SCH ×2 (15:00→22:33)
[2018-04-04] MEDS: chlordiazePOXIDE HCL 25 MG CAPSULE PO SCH ×2 (17:31→22:33)
[2018-04-04] MEDS ORDERED: MELATONIN 5 MG TABLETS PO PRN (22:00)
[2018-04-04] MEDS: THIAMINE HCL 100 MG TABLET (FP) PO SCH (22:34)
[2018-04-05] MEDS: GABAPENTIN 100 MG CAPSULE (FP) PO SCH ×3 (07:19→23:04)
[2018-04-05] MEDS: chlordiazePOXIDE HCL 25 MG CAPSULE PO SCH ×4 (07:20→23:03)
[2018-04-05 10:33] LABS: MCH 25.8 pg (25.7-33.7); WHITE BLOOD COUNT 8.5 K/mm3 (4.0-10.0)
[2018-04-05 10:36] LABS: HEMATOCRIT 42.4 % (32.4-45.2); HEMOGLOBIN 13.2 GM/dL (10.7-15.3); MCHC 31.2 g/dl (32.0-36.0); MEAN CELL VOLUME 82.6 fl (80-96); MEAN PLT VOLUME 8.4 fl (7.5-11.1); PLATELET COUNT 236 K/MM3 (134-434); RBC 5.14 M/mm3 (3.60-5.2); RDW 15.3 % (11.6-15.6)
[2018-04-05 10:59] LABS: ALBUMIN 3.9 g/dl (3.4-5.0); ALK PHOS 66 U/L (45-117); ANION GAP 9 MMOL/L (8-16); BILIRUBIN,TOTAL 0.7 mg/dL (0.2-1); BLOOD UREA NITROGEN 16 mg/dL (7-18); CALCIUM 9.3 mg/dL (8.5-10.1); CHLORIDE 105 mmol/L (98-107); CO2 28 mmol/L (21-32); CREATININE 0.9 mg/dL (0.55-1.3); GLUCOSE,RANDOM 115 mg/dL (74-106); POTASSIUM 3.6 mmol/L (3.5-5.1); SGOT/AST 9 U/L (15-37); SGPT/ALT 13 U/L (13-61); SODIUM 142 mmol/L (136-145); TOT PROT 7.6 g/dl (6.4-8.2)
[2018-04-05] MEDS: PRENATAL VITAMINS W/ FOLIC ACID TABLET (FP) PO SCH (11:05)
[2018-04-05] MEDS: FLUOCINONIDE 0.05% TOP OINT (60 GM TUBE) TP SCH ×2 (11:05→23:04)
[2018-04-05] MEDS ORDERED: IBUPROFEN 400 MG TABLET (FP) PO PRN ×2 (12:08→12:13)
--- NOTE | 2018-04-05 12:12 | PN ---
S CIWA - CIWA Score Nausea/Vomitin-No Nausea/No Vomiting Muscle Tremors: 3 Anxiety: 3 Agitation: 3 Paroxysmal Sweats: 3 Orientation: 0-Oriented Tacttile Disturbances: 0-None Auditory Disturbances: 0-None Visual Disturbances: 0-None Headache: 0-None Present CIWA-Ar Total Score: 12 S Progress Note (SOAP) Subjective: agitation sweats shakes B/L knee pain Objective: 04/05/18 12:12 Vital Signs Temperature 98.8 F 04/05/18 09:49 Pulse Rate 83 04/05/18 09:49 Respiratory Rate 18 04/05/18 09:49 Blood Pressure 118/61 04/05/18 09:49 O2 Sat by Pulse Oximetry (%) Laboratory Tests 04/05/18 04/05/18 04/05/18 05:50 05:50 05:50 WBC 8.5 RBC 5.14 Hgb 13.2 Hct 42.4 MCV 82.6 MCH 25.8 MCHC 31.2 L RDW 15.3 Plt Count 236 MPV 8.4 Sodium 142 Potassium 3.6 Chloride 105 Carbon Dioxide 28 Anion Gap 9 BUN 16 Creatinine 0.9 Creat Clearance w eGFR > 60 Random Glucose 115 H Calcium 9.3 Total Bilirubin 0.7 AST 9 L ALT 13 Alkaline Phosphatase 66 Total Protein 7.6 Albumin 3.9 RPR Titer Nonreactive aaox3 ambulating no acute distress Assessment: 04/05/18 12:12 withdrawal sx Plan: continue detox increase fluids analgesic balm ordered motrin 800mg tid prn
--- NOTE | 2018-04-05 13:13 | CONSULT ---
[facility] Psychiatric Consult - Data Date of interview: 04/05/18 Admission source: [facility] Identifying data: Patient is a 52 year old single female, mother of five, unemployed, homeless, and supported by [facility]. This is one of multiple admissions for patient. Patient admitted to for alcohol and cocaine dependence. Substance Abuse History: Smoking Cessation. Smoking history: Current every day smoker. Have you smoked in the past 12 months: Yes. Aproximately how many cigarettes per day: 20. Cigars Per Day: 0. Hx Chewing Tobacco Use: No. Initiated information on smoking cessation: Yes. 'Breaking Loose' booklet given : 04/04/18. - Substance & Tx. History. Hx Alcohol Use: Yes. Hx Substance Use : Yes. Substance Use Type: Alcohol, Cocaine, Marijuana. Hx Substance Use Treatment: Yes ([facility] 10/11). - Substances Abused. Alcohol. Route: Oral. Frequency: Daily. Amount used: fifth rum/ 3 6pk beers. Age of first use: 16. Date of Last Use: 04/02/18. Crack. Route: Smoking. Frequency: Daily. Amount used: $100 and up. Age of first use: 20. Date of Last Use: 04/04/18. * * Marijuana/Hashish. Route: Smoking. Frequency: 1-3 times last 30 days. Amount used: $20. Age of first use: 16. Date of Last Use: 03/14/18 Medical History: Anemia, partial hysterectomy 2011 Psychiatric History: Patient presented as irritable and mildly agitated. Patient reports multiple psychiatric hospitalizations, most recently at [facility] 2 weeks ago after reporting symptoms of depression. Outpatient psychiatric care is provided at the [facility]. Ms. Nielson is prescribed Invega Sustenna 156mg. She reports receiving the injection last month and stated she is not due for this month's injections. As per pharmacy claims, the prescription of invega sustenna was sent to patient's pharmacy on . Patient with a past history of accepting risperdal consta and trazodone. Diagnosis of schizoaffective disorder. Ms. Nielson currently denies psychotic symptoms. Patient reports one suicide attempt in 2016 via overdose. At present, she is experiencing difficulty sleeping. Physical/Sexual Abuse/Trauma History: denies. Mental Status Exam - Mental Status Exam Alert and Oriented to: Time, Place, Person Cognitive Function: Good Patient Appearance: Well Groomed Mood: Irritable Affect: Mood Congruent Patient Behavior: Fatigued, Agitated (Slightly agitated) Speech Pattern: Appropriate Voice Loudness: Normal Thought Process: Intact, Goal Oriented Thought Disorder: Not Present Hallucinations: Denies Suicidal Ideation: Denies Homicidal Ideation: Denies Insight/Judgement: Poor Sleep: Poorly Appetite: Fair Muscle strength/Tone: Normal Gait/Station: Other (Did not observe patient's gait.) Psychiatric Findings - Problem List ([place] 1, 2,3) (1) Substance induced mood disorder Current Visit: Yes Status: Acute (2) Insomnia Current Visit: Yes Status: Acute (3) Alcohol dependence with uncomplicated withdrawal Current Visit: Yes Status: Acute (4) Cocaine dependence Current Visit: No Status: Chronic (5) Nicotine dependence Current Visit: No Status: Acute Qualifiers: Nicotine product type: cigarettes Substance use status: in withdrawal Qualified Code(s): F17.213 - Nicotine dependence, cigarettes, with withdrawal (6) Schizoaffective disorder Current Visit: No Status: Chronic Qualifiers: Schizoaffective disorder type: other Qualified Code(s): F25.8 - Other schizoaffective disorders Comment: Pt. reports invega sustenna monthly. Last injection received on - Initial Treatment Plan Initial Treatment Plan: Psychoeducation provided. Detoxification in progress. Will order Trazodone 50mg qhs. Benefits and side effects discussed. Verbal consent given.
[2018-04-05] MEDS: METHYL SALICYLATE/MENTHOL OINT 30 GM TUBE TP SCH ×2 (15:03→23:02)
[2018-04-05] MEDS: traZODone HCL 50 MG TABLET (FP) PO SCH (23:02)
[2018-04-05] MEDS: THIAMINE HCL 100 MG TABLET (FP) PO SCH (23:04)
[2018-04-06] MEDS: chlordiazePOXIDE HCL 25 MG CAPSULE PO SCH ×2 (06:30→11:00)
[2018-04-06] MEDS: GABAPENTIN 100 MG CAPSULE (FP) PO SCH ×3 (06:30→23:07)
[2018-04-06] MEDS: METHYL SALICYLATE/MENTHOL OINT 30 GM TUBE TP SCH ×2 (10:00→23:07)
[2018-04-06] MEDS: PRENATAL VITAMINS W/ FOLIC ACID TABLET (FP) PO SCH (11:00)
[2018-04-06] MEDS: FLUOCINONIDE 0.05% TOP OINT (60 GM TUBE) TP SCH ×2 (11:00→23:08)
--- NOTE | 2018-04-06 13:03 | PN ---
[facility] CIWA - CIWA Score Nausea/Vomitin-No Nausea/No Vomiting Muscle Tremors: 3 Anxiety: 3 Agitation: 3 Paroxysmal Sweats: 2 Orientation: 0-Oriented Tacttile Disturbances: 0-None Auditory Disturbances: 0-None Visual Disturbances: 0-None Headache: 0-None Present CIWA-Ar Total Score: 11 S Progress Note (SOAP) Subjective: sweats interrupted sleep body aches Objective: 04/06/18 13:02 Vital Signs Temperature 98.6 F 04/06/18 09:37 Pulse Rate 90 04/06/18 09:37 Respiratory Rate 20 04/06/18 09:37 Blood Pressure 112/57 L 04/06/18 09:37 O2 Sat by Pulse Oximetry (%) Laboratory Tests 04/05/18 04/05/18 04/05/18 05:50 05:50 05:50 WBC 8.5 RBC 5.14 Hgb 13.2 Hct 42.4 MCV 82.6 MCH 25.8 MCHC 31.2 L RDW 15.3 Plt Count 236 MPV 8.4 Sodium 142 Potassium 3.6 Chloride 105 Carbon Dioxide 28 Anion Gap 9 BUN 16 Creatinine 0.9 Creat Clearance w eGFR > 60 Random Glucose 115 H Calcium 9.3 Total Bilirubin 0.7 AST 9 L ALT 13 Alkaline Phosphatase 66 Total Protein 7.6 Albumin 3.9 RPR Titer Nonreactive aaox3 ambulating no acute distress Assessment: 04/06/18 13:03 withdrawal sx Plan: continue detox increase fluids
[2018-04-06] MEDS: chlordiazePOXIDE 5 MG CAPSULE PO SCH ×2 (18:00→23:08)
[2018-04-06] MEDS: traZODone HCL 50 MG TABLET (FP) PO SCH (23:08)
[2018-04-06] MEDS: THIAMINE HCL 100 MG TABLET (FP) PO SCH (23:08)
[2018-04-07] MEDS: GABAPENTIN 100 MG CAPSULE (FP) PO SCH ×3 (05:06→21:07)
[2018-04-07] MEDS: chlordiazePOXIDE 5 MG CAPSULE PO SCH ×2 (06:05→10:29)
[2018-04-07] MEDS: PRENATAL VITAMINS W/ FOLIC ACID TABLET (FP) PO SCH (10:25)
[2018-04-07] MEDS: FLUOCINONIDE 0.05% TOP OINT (60 GM TUBE) TP SCH ×2 (10:25→22:57)
[2018-04-07] MEDS: METHYL SALICYLATE/MENTHOL OINT 30 GM TUBE TP SCH ×2 (10:29→22:56)
[2018-04-07] MEDS: chlordiazePOXIDE HCL 10 MG CAPSULE PO SCH ×2 (17:34→22:57)
--- NOTE | 2018-04-07 18:53 | PN ---
[facility] Progress Note (SOAP) Subjective: sweats Objective: 04/07/18 18:52 A & O x 3 in bed, no distress noted Vital Signs Temperature 97.9 F 04/07/18 17:22 Pulse Rate 61 04/07/18 17:22 Respiratory Rate 18 04/07/18 17:22 Blood Pressure 112/61 04/07/18 17:22 O2 Sat by Pulse Oximetry (%) Assessment: 04/07/18 18:52 withdrawal sx Plan: continue detox for d/c in a.m
[2018-04-07] MEDS: THIAMINE HCL 100 MG TABLET (FP) PO SCH (22:57)
[2018-04-07] MEDS: traZODone HCL 50 MG TABLET (FP) PO SCH (22:57)
[2018-04-08] MEDS: GABAPENTIN 100 MG CAPSULE (FP) PO SCH (05:00)
[2018-04-08] MEDS: chlordiazePOXIDE HCL 10 MG CAPSULE PO SCH ×2 (05:35→11:19)
[2018-04-08 09:58] VITALS: BP 132/78; PULSE 91; TEMP 98.6
[2018-04-08] MEDS: PRENATAL VITAMINS W/ FOLIC ACID TABLET (FP) PO SCH (11:20)
[2018-04-08] MEDS: METHYL SALICYLATE/MENTHOL OINT 30 GM TUBE TP SCH (11:20)
[2018-04-08] MEDS: FLUOCINONIDE 0.05% TOP OINT (60 GM TUBE) TP SCH (11:20)
--- NOTE | 2018-04-08 11:38 | DS ---
[facility] Detox Discharge Summary Admission Date: 04/04/18 Discharge Date: 04/08/18 - History Present History: Alcohol Dependence Additional Comments: 52 years old female admitted on 04/04/18 for alcohol withdrawal stabilization completed alcohol detox regimen tolerated well alert no acute distress aftercare [facility] - Physical Exam Results Vital Signs: Vital Signs Temperature 98.6 F 04/08/18 09:57 Pulse Rate 91 H 04/08/18 09:57 Respiratory Rate 20 04/08/18 09:57 Blood Pressure 132/78 04/08/18 09:57 O2 Sat by Pulse Oximetry (%) Pertinent Admission Physical Exam Findings: alcohol withdrawal sx Vital Signs Temperature 98.6 F 04/08/18 09:57 Pulse Rate 91 H 04/08/18 09:57 Respiratory Rate 20 04/08/18 09:57 Blood Pressure 132/78 04/08/18 09:57 O2 Sat by Pulse Oximetry (%) Laboratory Last Values WBC 8.5 K/mm3 (4.0-10.0) 04/05/18 05:50 RBC 5.14 M/mm3 (3.60-5.2) 04/05/18 05:50 Hgb 13.2 GM/dL (10.7-15.3) 04/05/18 05:50 Hct 42.4 % (32.4-45.2) 04/05/18 05:50 MCV 82.6 fl (80-96) 04/05/18 05:50 MCH 25.8 pg (25.7-33.7) 04/05/18 05:50 MCHC 31.2 g/dl (32.0-36.0) L 04/05/18 05:50 RDW 15.3 % (11.6-15.6) 04/05/18 05:50 Plt Count 236 K/MM3 (134-434) 04/05/18 05:50 MPV 8.4 fl (7.5-11.1) 04/05/18 05:50 Sodium 142 mmol/L (136-145) 04/05/18 05:50 Potassium 3.6 mmol/L (3.5-5.1) 04/05/18 05:50 Chloride 105 mmol/L (98-107) 04/05/18 05:50 Carbon Dioxide 28 mmol/L (21-32) 04/05/18 05:50 Anion Gap 9 MMOL/L (8-16) 04/05/18 05:50 BUN 16 mg/dL (7-18) 04/05/18 05:50 Creatinine 0.9 mg/dL (0.55-1.3) 04/05/18 05:50 Creat Clearance w eGFR > 60 (>60) 04/05/18 05:50 Random Glucose 115 mg/dL (74-106) H 04/05/18 05:50 Calcium 9.3 mg/dL (8.5-10.1) 04/05/18 05:50 Total Bilirubin 0.7 mg/dL (0.2-1) 04/05/18 05:50 AST 9 U/L (15-37) L 04/05/18 05:50 ALT 13 U/L (13-61) 04/05/18 05:50 Alkaline Phosphatase 66 U/L (45-117) 04/05/18 05:50 Total Protein 7.6 g/dl (6.4-8.2) 04/05/18 05:50 Albumin 3.9 g/dl (3.4-5.0) 04/05/18 05:50 RPR Titer Nonreactive (NONREACTIVE) 04/05/18 05:50 lab noted - Treatment Hospital Course: Detox Protocol Followed, Detoxed Safely, Responded well, Discharged Condition Good, Rehab Referral Accepted Patient has Accepted a Rehab Referral to: [facility] - Medication Discharge Medications: Ambulatory Orders Risperidone Microspheres [Risperdal Consta] 0 mg IM MONTHLY 07/24/17 Fluocinonide 0.05% Oin [Lidex 0.05% Ointment -] 1 applic TP BID 04/04/18 Gabapentin [Neurontin -] 100 mg PO Q8H 04/04/18 Methyl Salicylate/Menthol Oint [Ryder-Shah -] 1 applic TP BID 04/08/18 traZODone HCL [Trazodone HCl] 50 mg PO HS 04/08/18 - Diagnosis (1) Alcohol dependence with uncomplicated withdrawal Current Visit: Yes Status: Acute (2) Substance induced mood disorder Current Visit: Yes Status: Suspected (3) Nicotine dependence Current Visit: Yes Status: Acute Qualifiers: Nicotine product type: cigarettes Substance use status: in withdrawal Qualified Code(s): F17.213 - Nicotine dependence, cigarettes, with withdrawal - AMA Did Patient Leave Against Medical Advice: No
== END 2018-04-08 11:24 | disposition other institution (70) | DRG 774 ==
LOC: YASAS 10:45 → Y6N 12:31
PROC: HZ2ZZZZ Detoxification Services for Substance Abuse Treatment (ICD-10-PCS; principal; 2018-04-04)
DX: F10.230 Alcohol dependence with withdrawal, uncomplicated (principal); F14.20 Cocaine dependence, uncomplicated; F12.20 Cannabis dependence, uncomplicated; F17.213 Nicotine dependence, cigarettes, with withdrawal; F19.24 Other psychoactive substance dependence with psychoactive substance-induced mood disorder; F25.9 Schizoaffective disorder, unspecified; G47.00 Insomnia, unspecified; L30.9 Dermatitis, unspecified; R26.89 Other abnormalities of gait and mobility; Z99.89 Dependence on other enabling machines and devices; Z91.5 Personal history of self-harm; Z59.0 Homelessness; Z86.79 Personal history of other diseases of the circulatory system
CPT/HCPCS: 36415; 80053; 85027; 86593

== ENCOUNTER 2018-04-08 10:18 | Inpatient (IN) | payer OTHER ==
[2018-04-08] MEDS ORDERED: P-EPHED 60MG/TRIPROLIDI 2.5MG TABLET PO PRN (11:39)
[2018-04-08] MEDS ORDERED: MAGNESIUM HYDROX 2400MG/30ML ORAL SUSPENSION 30 ML CUP PO PRN (11:39)
[2018-04-08] MEDS ORDERED: IBUPROFEN 400 MG TABLET (FP) PO PRN (11:39)
[2018-04-08] MEDS ORDERED: NICOTINE POLACRILEX 2 MG GUM BUC PRN (11:39)
[2018-04-08] MEDS ORDERED: NICOTINE 14 MG/24 HOURS TOPICAL PATCH TD PRN (11:39)
[2018-04-08] MEDS ORDERED: guaiFENesin/D-METHORPHAN HB 10 ML UNIT-DOSE CUPS PO PRN (11:39)
[2018-04-08] MEDS ORDERED: ACETAMINOPHEN 325 MG TABLET (FP) PO PRN (11:39)
[2018-04-08] MEDS ORDERED: MENTHOL/PHENOL 1 EACH UD MM PRN (11:39)
[2018-04-08] MEDS ORDERED: LOPERAMIDE HCL 2 MG CAPSULE PO PRN (11:39)
[2018-04-08] MEDS ORDERED: MAGNESIUM CITRATE 300 ML BOTTLE PO PRN (11:39)
--- NOTE | 2018-04-08 11:39 | HP ---
[facility] Rehab Assess/Revision - Admission History Admitted to Rehab from: [facility] [place] Date of Admission to Rehab: 04/08/18 - Findings Detox History & Physical reviewed: Yes Concur with findings: Yes Comments/Additional Findings: tranferred from detox to rehab admission as per protocol Inpatient Rehab Admission - Initial Determination Are CD services needed?: Yes Free of communicable disease: Yes Not in need of hospitalization: Yes - Rehab Admission Criteria Previous failed treatment: Yes Poor recovery environment: Yes Comorbidities: Yes Lacks judgement: No Patient is meeting Inpatient Rehab admission criteria:: Yes
[2018-04-08] MEDS ORDERED: METHYL SALICYLATE/MENTHOL OINT 30 GM TUBE TP PRN (11:40)
[2018-04-08] MEDS ORDERED: GABAPENTIN 100 MG CAPSULE (FP) PO SCH (11:45)
[2018-04-08] MEDS: GABAPENTIN 100 MG CAPSULE (FP) PO SCH ×2 (14:00→21:46)
[2018-04-08] MEDS: traZODone HCL 50 MG TABLET (FP) PO SCH (21:45)
[2018-04-08] MEDS: FLUOCINONIDE 0.05% TOP OINT (60 GM TUBE) TP SCH (21:46)
[2018-04-08] MEDS: THIAMINE HCL 100 MG TABLET (FP) PO SCH (21:46)
[2018-04-08] MEDS ORDERED: MELATONIN 5 MG TABLETS PO PRN (22:00)
[2018-04-09] MEDS: GABAPENTIN 100 MG CAPSULE (FP) PO SCH ×3 (06:49→22:29)
[2018-04-09] MEDS: PRENATAL VITAMINS W/ FOLIC ACID TABLET (FP) PO SCH (09:35)
[2018-04-09] MEDS: FLUOCINONIDE 0.05% TOP OINT (60 GM TUBE) TP SCH ×2 (09:36→22:29)
--- NOTE | 2018-04-09 10:23 | HP ---
Psychiatrist Admission - Data Date of interview: 04/09/18 Admission source: [address] [place] [address] Identifying data: This is the first admission to [address] [place] [address] for this 52 years old AA single mother of 5,undomiciled, supported by [employer]. Medical History: Chronic arthritis,Anemia,Partial hysterectomy. Psychiatric History: Patient reports first contact with psychiatrist at 16 years old after suicidal attempt(DOD).Patient was admitted to [facility] in the [place] and dx with Schizoaffective disorder.Patient reports multiple psychiatric admissions.Most recent admission was about 3 weeks ago to [facility] due to severe depression and drinking.Patient sees psychiatrist at [facility] in [facility].She was on Trazodone 50 mg po hs,Gabapentin 100 mg po tid and Risperdal Consta 25 mg IM Monthly.Her last injection of Rispedal Consta 25 mg IM was about 2 month ago.Patient is willing to restart her medications. Physical/Sexual Abuse/Trauma History: Denies Vital Signs: Vital Signs - 24 hr 04/08/18 04/09/18 04/09/18 12:14 00:30 03:30 Temperature 98.4 F Pulse Rate 86 Respiratory 18 18 18 Rate Blood Pressure 102/69 04/09/18 06:58 Temperature 98.7 F Pulse Rate 87 Respiratory 18 Rate Blood Pressure 125/84 Allergies/Adverse Reactions: Allergies Allergy/AdvReac Type Severity Reaction Status Date / Time Fish Containing Products Allergy Severe Hives Verified 04/04/18 11:44 tomato Allergy Severe Hives Verified 04/04/18 11:44 Milk Containing Products AdvReac diarrhea Verified 04/04/18 11:44 NKDA Allergy Uncoded 04/04/18 11:44 Date of last physical exam: 04/04/18 Concur with the findings of this exam: Yes - Substance Abuse/Tx History Hx Alcohol Use: Yes (drinking since 16 yo,hard liquors since 20 yo heavy drinker ) Hx Substance Use: Yes (cocaien/crack since ,spending $300 daily) Substance Use Type: Alcohol, Cocaine Hx Substance Use Treatment: Yes (19 months in [facility]) Mental Status Exam - Mental Status Exam Alert and Oriented to: Time, Place, Person Cognitive Function: Grossly Intact Patient Appearance: Disheveled Mood: Euthymic Affect: Mood Congruent Patient Behavior: Cooperative Speech Pattern: Clear Voice Loudness: Normal Thought Process: Goal Oriented Thought Disorder: Being Controlled Hallucinations: Denies Suicidal Ideation: Denies Homicidal Ideation: Denies Insight/Judgement: Fair Sleep: Fair Appetite: Good Muscle strength/Tone: Normal Gait/Station: Antalgic Psychiatric Findings - Problem List ([place] 1, 2,3) (1) Cannabis dependence Current Visit: Yes Status: Chronic (2) Nicotine dependence Current Visit: Yes Status: Chronic Qualifiers: Nicotine product type: cigarettes Substance use status: in withdrawal Qualified Code(s): F17.213 - Nicotine dependence, cigarettes, with withdrawal (3) Cocaine dependence Current Visit: Yes Status: Chronic (4) Dermatitis Current Visit: Yes Status: Chronic (5) Alcohol dependence Current Visit: Yes Status: Chronic (6) Eczema Current Visit: Yes Status: Chronic (7) Schizoaffective disorder Current Visit: Yes Status: Chronic Qualifiers: Schizoaffective disorder type: other Qualified Code(s): F25.8 - Other schizoaffective disorders Comment: Pt. reports invega sustenna monthly. Last injection received on (8) Use of cane as ambulatory aid Current Visit: Yes Status: Chronic (9) History of partial hysterectomy Current Visit: Yes Status: Resolved - Initial Treatment Plan Initial Treatment Plan: Continue current medications as per plan.
[2018-04-09] MEDS: traZODone HCL 50 MG TABLET (FP) PO SCH (22:28)
[2018-04-09] MEDS: THIAMINE HCL 100 MG TABLET (FP) PO SCH (22:29)
[2018-04-10] MEDS: GABAPENTIN 100 MG CAPSULE (FP) PO SCH ×3 (06:45→21:55)
[2018-04-10] MEDS: PRENATAL VITAMINS W/ FOLIC ACID TABLET (FP) PO SCH (09:46)
[2018-04-10] MEDS: FLUOCINONIDE 0.05% TOP OINT (60 GM TUBE) TP SCH ×2 (09:46→21:55)
[2018-04-10] MEDS ORDERED: PT OWN MED DRAWER 7, Y5N ONE (10:09)
[2018-04-10] MEDS ORDERED: RISPERIDONE MICROSPHERES 25 MG/2 ML VIAL IM ONE (12:00)
[2018-04-10] MEDS: traZODone HCL 50 MG TABLET (FP) PO SCH (21:55)
[2018-04-10] MEDS: THIAMINE HCL 100 MG TABLET (FP) PO SCH (21:56)
[2018-04-11] MEDS: GABAPENTIN 100 MG CAPSULE (FP) PO SCH ×3 (07:12→21:48)
[2018-04-11] MEDS ORDERED: PT OWN MED DRAWER 7, Y5N ONE (08:54)
[2018-04-11] MEDS: PRENATAL VITAMINS W/ FOLIC ACID TABLET (FP) PO SCH (09:36)
[2018-04-11] MEDS: FLUOCINONIDE 0.05% TOP OINT (60 GM TUBE) TP SCH ×2 (09:38→21:49)
[2018-04-11] MEDS: MAG HYDROX/AL HYDROX/SIMETH 30 ML UNIT-DOSE CUP PO PRN (18:58)
[2018-04-11] MEDS: THIAMINE HCL 100 MG TABLET (FP) PO SCH (21:48)
[2018-04-11] MEDS: traZODone HCL 50 MG TABLET (FP) PO SCH (21:48)
[2018-04-12] MEDS: GABAPENTIN 100 MG CAPSULE (FP) PO SCH ×3 (07:09→23:28)
[2018-04-12] MEDS ORDERED: PT OWN MED DRAWER 7, Y5N ONE (08:37)
[2018-04-12] MEDS: FLUOCINONIDE 0.05% TOP OINT (60 GM TUBE) TP SCH ×2 (09:31→23:28)
[2018-04-12] MEDS: PRENATAL VITAMINS W/ FOLIC ACID TABLET (FP) PO SCH (09:31)
[2018-04-12] MEDS: traZODone HCL 50 MG TABLET (FP) PO SCH (23:28)
[2018-04-12] MEDS: THIAMINE HCL 100 MG TABLET (FP) PO SCH (23:29)
[2018-04-13] MEDS: GABAPENTIN 100 MG CAPSULE (FP) PO SCH ×4 (06:47→23:08)
[2018-04-13] MEDS ORDERED: COLLOIDAL OATMEAL 1 BAR EACH TP PRN (09:08)
[2018-04-13] MEDS: PRENATAL VITAMINS W/ FOLIC ACID TABLET (FP) PO SCH (10:01)
[2018-04-13] MEDS: FLUOCINONIDE 0.05% TOP OINT (60 GM TUBE) TP SCH ×2 (10:01→23:08)
[2018-04-13] MEDS: MAG HYDROX/AL HYDROX/SIMETH 30 ML UNIT-DOSE CUP PO PRN (18:02)
[2018-04-13] MEDS: THIAMINE HCL 100 MG TABLET (FP) PO SCH (23:08)
[2018-04-13] MEDS: traZODone HCL 50 MG TABLET (FP) PO SCH (23:08)
[2018-04-14] MEDS: GABAPENTIN 100 MG CAPSULE (FP) PO SCH ×3 (07:53→23:05)
[2018-04-14] MEDS: PRENATAL VITAMINS W/ FOLIC ACID TABLET (FP) PO SCH (10:48)
[2018-04-14] MEDS: FLUOCINONIDE 0.05% TOP OINT (60 GM TUBE) TP SCH ×2 (10:48→23:05)
[2018-04-14] MEDS: THIAMINE HCL 100 MG TABLET (FP) PO SCH (23:05)
[2018-04-14] MEDS: traZODone HCL 50 MG TABLET (FP) PO SCH (23:05)
[2018-04-15] MEDS: GABAPENTIN 100 MG CAPSULE (FP) PO SCH ×3 (07:06→22:30)
[2018-04-15] MEDS: PRENATAL VITAMINS W/ FOLIC ACID TABLET (FP) PO SCH (09:54)
[2018-04-15] MEDS: FLUOCINONIDE 0.05% TOP OINT (60 GM TUBE) TP SCH ×2 (09:55→21:35)
[2018-04-15] MEDS: traZODone HCL 50 MG TABLET (FP) PO SCH (22:00)
[2018-04-15] MEDS: THIAMINE HCL 100 MG TABLET (FP) PO SCH (22:40)
[2018-04-16] MEDS: GABAPENTIN 100 MG CAPSULE (FP) PO SCH (06:31)
[2018-04-16] MEDS: PRENATAL VITAMINS W/ FOLIC ACID TABLET (FP) PO SCH (09:53)
[2018-04-16] MEDS: FLUOCINONIDE 0.05% TOP OINT (60 GM TUBE) TP SCH ×2 (09:53→21:35)
--- NOTE | 2018-04-16 10:53 | PN ---
[facility] Progress Note Note: PATIENT C/O NUMBNESS AND TINGLING TO RIGHT ARM AND HAND. STATES SHE HAS HAD SYMPTOMS IN PAST BUT NOW IT IS GETTING WORSE. PATIENT DENIES RECENT INJURIES AND H/O DM AND CARPEL TUNNEL SYNDROME. PATIENT ALSO DENIES CP, SOB AND DIZZINESS. CURRENTLY ON GABAPENTIN BUT STATES MEDICATION INEFFECTIVE FOR PAIN RELIEF. Vital Signs Temperature 98.3 F 04/12/18 06:36 Pulse Rate 85 04/12/18 06:36 Respiratory Rate 16 04/16/18 03:30 Blood Pressure 110/74 04/12/18 06:36 O2 Sat by Pulse Oximetry (%) Laboratory Tests 04/09/18 07:00 HIV 1&2 Antibody Screen Negative HIV P24 Antigen Negative PE: ALERT AND ORIENTED X 3 SKIN WARM AND DRY CASR S1S2 RESP CTA BL EXT FULL ROM, RUE WITH +RADIAL PULSE, NO REDNESS AND SWELLING AMB AD [place] A/P: PERIPHERAL NEUROPATHY ?ETIOLOGY WILL ORDER FASTING GLUCOSE FOR TOMORROW AM D/C GABAPENTIN PATIENT STATES IT IS INEFFECTIVE ADD FLEXERIL ALTERNATIVE FOR PAIN RELIEF TOGETHER WITH IBUPROFEN CONTINUE TO MONITOR CLINICALLY
[2018-04-16] MEDS: CYCLOBENZAPRINE HCL 10 MG TABLET (FP) PO SCH ×2 (13:58→21:35)
[2018-04-16] MEDS: THIAMINE HCL 100 MG TABLET (FP) PO SCH (21:35)
[2018-04-16] MEDS: traZODone HCL 50 MG TABLET (FP) PO SCH (21:35)
[2018-04-17] MEDS: CYCLOBENZAPRINE HCL 10 MG TABLET (FP) PO SCH ×3 (07:20→21:25)
[2018-04-17 07:21] VITALS: TEMP 98.5
[2018-04-17] MEDS: PRENATAL VITAMINS W/ FOLIC ACID TABLET (FP) PO SCH (09:41)
[2018-04-17] MEDS: FLUOCINONIDE 0.05% TOP OINT (60 GM TUBE) TP SCH ×2 (09:41→22:41)
[2018-04-17 10:18] VITALS: BP 108/76; PULSE 106
--- NOTE | 2018-04-17 12:45 | PN ---
[facility] Progress Note Note: FBS REVIEWED Laboratory Last Values Fasting Glucose 83 mg/dL (74-106) 04/17/18 07:00 HIV 1&2 Antibody Screen Negative 04/09/18 07:00 HIV P24 Antigen Negative 04/09/18 07:00
[2018-04-17] MEDS: THIAMINE HCL 100 MG TABLET (FP) PO SCH (21:25)
[2018-04-17] MEDS: traZODone HCL 50 MG TABLET (FP) PO SCH (21:25)
[2018-04-18] MEDS: CYCLOBENZAPRINE HCL 10 MG TABLET (FP) PO SCH ×3 (07:41→21:14)
[2018-04-18] MEDS: FLUOCINONIDE 0.05% TOP OINT (60 GM TUBE) TP SCH ×2 (09:09→21:15)
[2018-04-18] MEDS: PRENATAL VITAMINS W/ FOLIC ACID TABLET (FP) PO SCH (09:10)
--- NOTE | 2018-04-18 11:34 | PN ---
[facility] Progress Note Note: PT C/O VAGINAL FISHY ODOR AND DISCOMFORT X 2 DAYS WITH YELLOWISH DISCHARGE. REPORTS SIMILAR SX IN THE PAST WITH TREATMENT. Vital Signs 04/18/18 06:44 Respiratory 18 Rate Vital Signs - 24 hr 04/18/18 04/18/18 04/18/18 00:30 03:30 06:44 Respiratory 18 18 18 Rate IM:BV PLAN:FLAGYL 500 MG PO BID X 7 DAYS
[2018-04-18] MEDS ORDERED: metroNIDAZOLE 250 MG TABLET PO ONE (12:30)
--- NOTE | 2018-04-18 16:21 | PN ---
Psychiatric Progress Note Vital Signs: Vital Signs Period Temp Pulse Resp BP Sys/[place] Pulse Ox Last 24 Hr 18-18 Date of Session: 04/18/18 Chief Complaint:: Discharge visit Current Medications: Active Medications Generic Name Dose Route Start Last Admin Trade Name Freq PRN Reason Stop Dose Admin Acetaminophen 650 mg 04/08/18 11:39 Tylenol - PO Q4H PRN FEVER Al Hydroxide/Mg Hydroxide 30 ml 04/08/18 11:39 04/13/18 18:02 Mylanta Oral Suspension - PO 30 ml Q6H PRN Administration DYSPEPSIA Colloidal Oatmeal 1 applic 04/13/18 09:08 04/13/18 14:08 Aveeno Soap - TP 1 bar DAILY PRN Administration HYGEINE Cyclobenzaprine HCl 10 mg 04/16/18 14:00 04/18/18 14:10 Flexeril - PO 10 mg TID ROSALIND Administration Eucalyptus/Menthol/Phenol/Sorbitol 1 each 04/08/18 11:39 Cepastat Lozenge - MM Q4H PRN SORE THROAT Fluocinonide 1 applic 04/08/18 22:00 04/18/18 09:09 Lidex 0.05% Ointment - TP Not Given BID ROSALIND Guaifenesin 10 ml 04/08/18 11:39 Robitussin Dm - PO Q6H PRN COUGH Ibuprofen 400 mg 04/08/18 11:39 Motrin - PO Q6H PRN Pain Level 4-6 Loperamide HCl 4 mg 04/08/18 11:39 Imodium - PO Q6H PRN DIARRHEA Magnesium Citrate 300 ml 04/08/18 11:39 Citroma - PO Q48H PRN CONSTIPATION Magnesium Hydroxide 30 ml 04/08/18 11:39 Milk Of Magnesia - PO DAILY PRN CONSTIPATION Melatonin 5 mg 04/08/18 22:00 Melatonin PO HS PRN INSOMNIA Methyl Salicylate 1 applic 04/08/18 11:40 Ryder-Shah - TP BID PRN BACK PAIN Metronidazole 500 mg 04/18/18 22:00 Flagyl - PO 04/25/18 21:59 BID ROSALIND Nicotine 14 mg 04/08/18 11:39 Nicoderm Patch - TD DAILY PRN WITHDRAWAL(CONT SUBST) Nicotine Polacrilex 2 mg 04/08/18 11:39 Nicorette Gum - BUC Q2H PRN NICOTINE REPLACEMENT RX Multivit/Folic Acid/Iron 1 tab 04/09/18 10:00 04/18/18 09:10 Vitamins (Sjr) - PO Not Given DAILY ROSALIND Pseudoephedrine/Triprolidine 1 combo 04/08/18 11:39 Actifed - PO TID PRN NASAL CONGESTION Thiamine HCl 100 mg 04/08/18 22:00 04/17/18 21:25 Vitamin B1 - PO 100 mg HS ROSALIND Administration Trazodone HCl 50 mg 04/08/18 22:00 04/17/18 21:25 Desyrel - PO 50 mg HS ROSALIND Administration Current Side Effect: No Lab tests ordered: No Lab tests reviewed: Yes Psychiatric Treatment Plan - Problem List (1) Cannabis dependence Current Visit: Yes (2) Nicotine dependence Current Visit: Yes Qualifiers: Nicotine product type: cigarettes Substance use status: in withdrawal Qualified Code(s): F17.213 - Nicotine dependence, cigarettes, with withdrawal (3) Cocaine dependence Current Visit: Yes (4) Dermatitis Current Visit: Yes (5) Alcohol dependence Current Visit: Yes (6) Eczema Current Visit: Yes (7) Schizoaffective disorder Current Visit: Yes Qualifiers: Schizoaffective disorder type: other Qualified Code(s): F25.8 - Other schizoaffective disorders Comment: Pt. reports invega sustenna monthly. Last injection received on (8) Use of cane as ambulatory aid Current Visit: Yes (9) History of partial hysterectomy Current Visit: Yes
[2018-04-18] MEDS: MAG HYDROX/AL HYDROX/SIMETH 30 ML UNIT-DOSE CUP PO PRN (18:14)
[2018-04-18] MEDS: THIAMINE HCL 100 MG TABLET (FP) PO SCH (21:14)
[2018-04-18] MEDS: traZODone HCL 50 MG TABLET (FP) PO SCH (21:14)
[2018-04-18] MEDS ORDERED: metroNIDAZOLE 250 MG TABLET PO SCH (22:00)
[2018-04-19] MEDS: CYCLOBENZAPRINE HCL 10 MG TABLET (FP) PO SCH (07:43)
[2018-04-19] MEDS ORDERED: PT OWN MED DRAWER 7, Y5N ONE (08:23)
--- NOTE | 2018-04-19 10:22 | PN ---
[facility] Progress Note Note: PATIENT COMPLETED REHAB TODAY WITHOUT ADVERSE EVENT. PATIENT STATES SHE WILL FOLLOW UP WITH [facility] REGARDING OUTPATIENT TREATMENT. PATIENT SENT MEDICATION TO PHARMACY AND REVIEWED FASTING GLUCOSE RESULTS, 83, PRIOR DISCHARGE. PATIENT ENCOURAGED TO FOLLOW UP WITH PCP WITHIN ONE WEEK OF D/C AND TO CONTINUE WITH GROUP MEETINGS TO PREVENT RELAPSE. PATIENT LEFT UNIT IN STABLE MEDICAL CONDITION. DENIED SI/HI. Vital Signs Temperature 98.5 F 04/17/18 07:20 Pulse Rate 106 H 04/17/18 09:35 Respiratory Rate 18 04/19/18 06:51 Blood Pressure 108/76 04/17/18 09:35 O2 Sat by Pulse Oximetry (%)
== END 2018-04-19 08:40 | disposition home or self-care (01) | DRG 772 ==
LOC: YASAS 10:18 → Y3E 10:19
PROVIDERS: ADMIT Psychiatry & Neurology Psychiatry; ATTEND Psychiatry & Neurology Psychiatry
PROC: HZ42ZZZ Group Counseling for Substance Abuse Treatment, Cognitive-Behavioral (ICD-10-PCS; principal; 2018-04-08)
DX: F10.20 Alcohol dependence, uncomplicated (principal); F14.20 Cocaine dependence, uncomplicated; F17.213 Nicotine dependence, cigarettes, with withdrawal; F25.8 Other schizoaffective disorders; G62.9 Polyneuropathy, unspecified; L30.9 Dermatitis, unspecified; N76.0 Acute vaginitis; R26.89 Other abnormalities of gait and mobility; Z99.89 Dependence on other enabling machines and devices; Z59.0 Homelessness
CPT/HCPCS: 36415; 82947; 87389

== ENCOUNTER 2018-08-03 10:10 | Inpatient (IN) | payer OTHER ==
[2018-08-03 10:30] VITALS: BMI 33.5
--- NOTE | 2018-08-03 13:20 | HP ---
CIWA Score Nausea/Vomitin Muscle Tremors: 2 Anxiety: 2 Agitation: 2 Paroxysmal Sweats: 1-Minimal Palms Moist Orientation: 0-Oriented Tacttile Disturbances: 1-Very Mild Itch/Numbness Auditory Disturbances: 1-Very Mild Visual Disturbances: 0-None Headache: 2-Mild CIWA-Ar Total Score: 13 - Admission Criteria OASAS Guidelines: Admission for Medically Managed Detox: Requires at least one of the followin. CIWA greater than 12 2. Seizures within the past 24 hours 3. Delirium tremens within the past 24 hours 4. Hallucinations within the past 24 hours 5. Acute intervention needed for co occurring medical disorder 6. Acute intervention needed for co occurring psychiatric disorder 7. Severe withdrawal that cannot be handled at a lower level of care (continued vomiting, continued diarrhea, abnormal vital signs) requiring intravenous medication and/or fluids 8. Admission ROS S - [facility] Chief Complaint: i need help to stop drinking alcohol,crack,and marijuan Allergies/Adverse Reactions: Allergies Allergy/AdvReac Type Severity Reaction Status Date / Time Fish Containing Products Allergy Severe Hives Verified 08/03/18 10:30 tomato Allergy Severe Hives Verified 08/03/18 10:30 No Known Drug Allergies Allergy Verified 08/03/18 10:30 Milk Containing Products AdvReac diarrhea Verified 08/03/18 10:30 History of Present Illness: this 52 years old female with alcohol,cocaine and marijuana dependence,seeking detox,withdrawal symptom, seeking detox, multiple admissions in detox ,last C 04/04/18 to 04/08/18,rehab 3E 04/08/18 to 04/19/18 ambulation with cane,pain in both knees nicotine dependence 5 cigarette,does not want any nicotine replacement longest period of sobriety 8 years plan for rehab after detox - Ebola screening Have you traveled outside of the country in the last 21 days: No Have you had contact with anyone from an Ebola affected area: No Do you have a fever: No - Review of Systems Constitutional: Loss of Appetite, Malaise, Night Sweats, Changes in sleep EENT: reports: Tearing, Nose Congestion Respiratory: reports: No Symptoms reported Cardiac: reports: No Symptoms Reported GI: reports: Nausea, Poor Appetite, Abdominal cramping : reports: No Symptoms Reported Musculoskeletal: reports: Back Pain, Muscle Pain Integumentary: reports: Dryness Neuro: reports: Headache, Tremors Endocrine: reports: No Symptoms Reported Hematology: reports: No Symptoms Reported Psychiatric: reports: No Sypmtoms Reported, Judgement Intact, Mood/Affect Appropiate, Orientated x3 Other Systems: Reviewed and Negative Patient History - Patient Medical History Hx Anemia: Yes (NO MED) Hx Asthma: No Hx Chronic Obstructive Pulmonary Disease (COPD): No Hx Cancer: No Hx Cardiac Disorders: No Hx Congestive Heart Failure: No Hx Hypertension: No Hx Hypercholesterolemia: No Hx Pacemaker: No HX Cerebrovascular Accident: No Hx Seizures: No Hx Dementia: No Hx Diabetes: No Hx Gastrointestinal Disorders: No Hx Liver Disease: No Hx Genitourinary Disorders: No Hx Sexually Transmitted Disorders: No Hx Renal Disease (ESRD): No Hx Thyroid Disease: No Hx Human Immunodeficiency Virus (HIV): No ( NEGATIVE HX 04/14) Hx Hepatitis C: No Hx Depression: Yes Hx Suicide Attempt: Yes (overdose ) Hx Bipolar Disorder: No Hx Schizophrenia: Yes Other Medical History: no suicidal,no homicidal - Patient Surgical History Past Surgical History: Yes Hx Neurologic Surgery: No Hx Cataract Extraction: No Hx Cardiac Surgery: No Hx Lung Surgery: No Hx Breast Surgery: No Hx Breast Biopsy: No Hx Abdominal Surgery: Yes (partial hystertctomy in 2011) Hx Appendectomy: No Hx Cholecystectomy: No Hx Genitourinary Surgery: No Hx Section: Yes (x3) Hx Orthopedic Surgery: No Hx Hysterectomy: Yes (PARTIAL HYSTERCTOMY FOR FIBROID IN 2011) Anesthesia Reaction: No - PPD History Previous Implant?: Yes Documented Results: Negative w/proof Implanted On Prior [facility] Admission?: Yes Date: 05/02/17 Results: 0mm PPD to be Administered?: Yes - Reproductive History Patient is a Female of Child Bearing Age (11 -55 yrs old): Yes Last Menstrual Period: 12/05/11 Patient : No - Smoking Cessation Smoking history: Current every day smoker Have you smoked in the past 12 months: Yes Aproximately how many cigarettes per day: 5 Cigars Per Day: 0 Hx Chewing Tobacco Use: No Initiated information on smoking cessation: Yes 'Breaking Loose' booklet given: 08/03/18 - Substance & Tx. History Hx Alcohol Use: Yes Hx Substance Use: Yes Substance Use Type: Alcohol, Cocaine Hx Substance Use Treatment: Yes ([facility] 04/04/18 to 04/08/18 REHAB 04/08/18 to ) - Substances abused Alcohol Substance route: Oral Frequency: Daily Amount used: BEERS- 4 CANS 24OZ Age of first use: 16 Date of last use: 08/02/18 Crack Substance route: Smoking Frequency: Daily Amount used: $200 Age of first use: 20 Date of last use: 08/03/18 Marijuana/Hashish Substance route: Smoking Frequency: Daily Amount used: $5 Age of first use: 16 Date of last use: 07/27/18 Family Disease History - Family Disease History Family Disease History: Other: Mother (HTN) Admission Physical Exam S - Vital Signs Vital Signs: Vital Signs - 24 hr 08/03/18 08/03/18 10:22 11:42 Temperature 99.5 F 99.5 F Pulse Rate 92 H 92 H Respiratory 18 18 Rate Blood Pressure 162/88 162/88 - Physical General Appearance: Yes: Moderate Distress, Tremorous, Irritable, Sweating, Anxious HEENTM: Yes: Normocephalic, CARLOS, Pharynx Normal Respiratory: Yes: Lungs Clear, Normal Breath Sounds, No Respiratory Distress Neck: Yes: Within Normal Limits, Supple, Trachea in good position Breast: Yes: Breast Exam Deferred Cardiology: Yes: Within Normal Limits, Regular Rhythm, Regular Rate, S1, S2 Abdominal: Yes: Within Normal Limits, Normal Bowel Sounds, Non Tender, Flat, Soft Genitourinary: Yes: Within Normal Limits Back: Yes: Within Normal Limits, Normal Inspection, Muscle Spasm Extremities: Yes: Tremors Neurological: Yes: 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 NML intact, Fully Oriented, Alert, Motor Strength 5/5 Integumentary: Yes: Dry Lymphatic: Yes: Within Normal Limits - Diagnostic (1) Alcohol dependence with uncomplicated withdrawal Current Visit: No Status: Acute (2) Syncope Current Visit: No Status: Acute (3) Cannabis dependence Current Visit: No Status: Chronic (4) Cocaine dependence Current Visit: No Status: Chronic Qualifiers: Substance use status: uncomplicated Qualified Code(s): F14.20 - Cocaine dependence, uncomplicated (5) Dermatitis Current Visit: No Status: Chronic (6) Nicotine dependence Current Visit: No Status: Chronic Qualifiers: Nicotine product type: cigarettes Substance use status: in withdrawal Qualified Code(s): F17.213 - Nicotine dependence, cigarettes, with withdrawal (7) Peripheral neuropathy Current Visit: No Status: Chronic Qualifiers: Peripheral neuropathy type: polyneuropathy, unspecified Qualified Code(s): G62.9 - Polyneuropathy, unspecified (8) Schizoaffective disorder Current Visit: No Status: Chronic Qualifiers: Schizoaffective disorder type: other Qualified Code(s): F25.8 - Other schizoaffective disorders Comment: Pt. reports invega sustenna monthly. Last injection received on (9) Use of cane as ambulatory aid Current Visit: No Status: Chronic (10) History of partial hysterectomy Current Visit: No Status: Resolved Cleared for Admission S - Detox or Rehab [facility] Level of Care: Medically Managed Detox Regimen/Protocol: Librium Breathalyzer - Breathalyzer Breathalyzer: 0 Urine Drug Screen - Test Device Lot number: [id number] Expiration date: 04/26/20 - Control Is test valid?: Yes - Results Drug screen NEGATIVE: No Urine drug screen results: NEGRA-Cocaine Inpatient Rehab Admission - Rehab Decision to Admit Inpatient rehab admission?: No
[2018-08-03] MEDS ORDERED: MAGNESIUM HYDROX 2400MG/30ML ORAL SUSPENSION 30 ML CUP PO PRN (13:31)
[2018-08-03] MEDS ORDERED: ACETAMINOPHEN 325 MG TABLET (FP) PO PRN ×2 (13:31)
[2018-08-03] MEDS ORDERED: BISMUTH SUBSALICYLATE 262 MG/15 ML BTL PO PRN (13:31)
[2018-08-03] MEDS ORDERED: chlordiazePOXIDE HCL 25 MG CAPSULE PO PRN (13:31)
[2018-08-03] MEDS ORDERED: IBUPROFEN 400 MG TABLET (FP) PO PRN (13:31)
[2018-08-03] MEDS ORDERED: MAG HYDROX/AL HYDROX/SIMETH 30 ML UNIT-DOSE CUP PO PRN (13:31)
[2018-08-03] MEDS ORDERED: MENTHOL/PHENOL 1 EACH UD MM PRN (13:31)
[2018-08-03] MEDS ORDERED: METHOCARBAMOL 500 MG TABLET PO PRN (13:31)
[2018-08-03] MEDS ORDERED: hydrOXYzine PAMOATE 25 MG CAPSULE (FP) PO PRN (13:31)
[2018-08-03] MEDS ORDERED: MELATONIN 5 MG TABLETS PO PRN (13:31)
[2018-08-03] MEDS ORDERED: MAGNESIUM CITRATE 300 ML BOTTLE PO PRN (13:31)
[2018-08-03] MEDS: GABAPENTIN 100 MG CAPSULE (FP) PO SCH ×2 (14:45→22:13)
[2018-08-03] MEDS: FLUOCINONIDE 0.05% CREAM (60 GM TUBE) TP SCH ×2 (14:46→22:13)
[2018-08-03 17:10] LABS: HEMATOCRIT 41.8 % (32.4-45.2); HEMOGLOBIN 13.3 GM/dL (10.7-15.3); MCH 26.3 pg (25.7-33.7); MCHC 31.9 g/dl (32.0-36.0); MEAN CELL VOLUME 82.3 fl (80-96); MEAN PLT VOLUME 8.2 fl (7.5-11.1); PLATELET COUNT 223 K/MM3 (134-434); RBC 5.08 M/mm3 (3.60-5.2); RDW 15.4 % (11.6-15.6); WHITE BLOOD COUNT 5.6 K/mm3 (4.0-10.0)
[2018-08-03 17:13] LABS: ALBUMIN 3.3 g/dl (3.4-5.0); BILIRUBIN,TOTAL 0.4 mg/dL (0.2-1); CALCIUM 8.7 mg/dL (8.5-10.1); CREATININE 0.6 mg/dL (0.55-1.3); TOT PROT 6.6 g/dl (6.4-8.2)
[2018-08-03] MEDS: chlordiazePOXIDE HCL 25 MG CAPSULE PO SCH ×2 (17:35→22:13)
[2018-08-03] MEDS: THIAMINE HCL 100 MG TABLET (FP) PO SCH (22:12)
[2018-08-04] MEDS: GABAPENTIN 300 MG CAPSULE (FP) PO SCH ×3 (05:40→22:18)
[2018-08-04] MEDS: chlordiazePOXIDE HCL 25 MG CAPSULE PO SCH ×5 (05:41→22:18)
[2018-08-04] MEDS: PRENATAL VITAMINS W/ FOLIC ACID TABLET (FP) PO SCH (11:51)
[2018-08-04] MEDS: FLUOCINONIDE 0.05% CREAM (60 GM TUBE) TP SCH ×2 (11:51→22:21)
--- NOTE | 2018-08-04 16:46 | CONSULT ---
[facility] Psychiatric Consult - Data Date of interview: 08/04/18 Admission source: [facility] Identifying data: Readmission to [facility] for this 52 y/o AA female self- referred for detoxification (alcohol, cannabis, cocaine). Interviewed at [address] [place] [address]. Patient is single, a mother of five, homeless, unemployed and supported on SSI benefits. Substance Abuse History: Confirmed by the patient in this interview. Details in current [facility] report as follows : Smoking history: Current every day smoker. Have you smoked in the past 12 months: Yes. Aproximately how many cigarettes per day: 5. Cigars Per Day: 0. Hx Chewing Tobacco Use: No. Initiated information on smoking cessation: Yes. 'Breaking Loose' booklet given: . - Substance & Tx. History. Hx Alcohol Use: Yes. Hx Substance Use: Yes. Substance Use Type: Alcohol, Cocaine. Hx Substance Use Treatment: Yes ([facility] 12/13 to 04/08/18 REHAB 04/08/18 to 04/19/18). - Substances abused. Alcohol. Substance route: Oral. Frequency: Daily. Amount used: BEERS- 4 CANS 24OZ. Age of first use: 16. Date of last use: 08/02/18. Crack. Substance route: Smoking. Frequency: Daily. Amount used: $200. Age of first use: 20. Date of last use: 08/03/18. Marijuana/Hashish. Substance route: Smoking. Frequency: Daily. Amount used: $5. Age of first use: 16. Date of last use: Medical History: Remarkable for chronic arthritis, anemia, history of partial hysterectomy, eczema and peripheral neuropathy. Psychiatric History: Onset of emotional disturbances : age 16. Patient endorses a history of multiple psychiatric hospitalizations ([facility]) . Diagnosed with Schizoaffective Disorder. She gets psychiatric outpatient care at the [facility] in the [place]. Ms Dorsey has no recall of her current regimen of psychotropic medications. Records indicates past treatment with invega, risperdal consta and trazodone. History of one suicide attempt via overdose with medications (2016). Physical/Sexual Abuse/Trauma History: No history reported. Additional Comment: Urine drug screen results: NEGRA-Cocaine. Noted. Mental Status Exam - Mental Status Exam Alert and Oriented to: Time, Place, Person Cognitive Function: Grossly Intact Patient Appearance: Unkempt, Disheveled (obese) Mood: Angry, Hostile, Nervous, Withdrawn, Irritable Affect: Mood Congruent, Constricted Patient Behavior: Fatigued, Uncooperative Speech Pattern: Clear (non spontaneous speech) Voice Loudness: Normal Thought Process: Goal Oriented Thought Disorder: Bizarre Hallucinations: Denies Suicidal Ideation: Denies Homicidal Ideation: Denies Insight/Judgement: Poor Sleep: Fair Appetite: Good Gait/Station: Other (not observed ; in bed for entire interview) Psychiatric Findings - Problem List ([place] 1, 2,3) (1) Alcohol dependence with uncomplicated withdrawal Current Visit: Yes Status: Acute (2) Cannabis dependence Current Visit: Yes Status: Chronic (3) Cocaine dependence Current Visit: Yes Status: Chronic Qualifiers: Substance use status: uncomplicated Qualified Code(s): F14.20 - Cocaine dependence, uncomplicated (4) Nicotine dependence Current Visit: Yes Status: Chronic Qualifiers: Nicotine product type: cigarettes Substance use status: in withdrawal Qualified Code(s): F17.213 - Nicotine dependence, cigarettes, with withdrawal (5) Substance induced mood disorder Current Visit: Yes Status: Suspected (6) Schizoaffective disorder Current Visit: Yes Status: Chronic Qualifiers: Schizoaffective disorder type: other Qualified Code(s): F25.8 - Other schizoaffective disorders (7) Non-compliance Current Visit: Yes Status: Chronic - Initial Treatment Plan Initial Treatment Plan: Psychoeducation. Sleep hygiene. Detoxification. Integration Consultant contacted pharmacist at [facility] # [id number] for verification of medications : no activity since March 2018 ; refills for lexapro 10 m/day + risperdal 2 mg/bid were NOT picked up. AA meetings. Observation.
--- NOTE | 2018-08-04 18:10 | PN ---
S CIWA - CIWA Score Nausea/Vomitin Muscle Tremors: 3 Anxiety: 3 Agitation: 0-Normal Activity Paroxysmal Sweats: No Perspiration Orientation: 0-Oriented Tacttile Disturbances: 0-None Auditory Disturbances: 2-Mild Harshness/Frighten Visual Disturbances: 2-Mild Sensitivity Headache: 0-None Present CIWA-Ar Total Score: 12 BHS Progress Note (SOAP) Subjective: Fatigue, Tremors, Nausea, Interrupted Sleep. Objective: PATIENT A & O X 3. IN NO ACUTE DISTRESS. 08/04/18 18:09 Vital Signs Temperature 98 F 08/04/18 06:17 Pulse Rate 86 08/04/18 06:17 Respiratory Rate 18 08/04/18 06:17 Blood Pressure 119/74 08/04/18 06:17 O2 Sat by Pulse Oximetry (%) Laboratory Tests 08/03/18 08/03/18 08/03/18 11:44 13:20 13:20 WBC 5.6 RBC 5.08 Hgb 13.3 Hct 41.8 MCV 82.3 MCH 26.3 MCHC 31.9 L RDW 15.4 Plt Count 223 MPV 8.2 Sodium 139 Potassium 4.0 Chloride 107 Carbon Dioxide 27 Anion Gap 5 L BUN 8 Creatinine 0.6 Est GFR (CKD-EPI)AfAm 122.32 Est GFR (CKD-EPI)NonAf 105.54 Random Glucose 100 Calcium 8.7 Total Bilirubin 0.4 AST 12 L ALT 17 Alkaline Phosphatase 61 Total Protein 6.6 Albumin 3.3 L POC Urine HCG, Qual Negative RPR Titer 08/03/18 13:20 WBC RBC Hgb Hct MCV MCH MCHC RDW Plt Count MPV Sodium Potassium Chloride Carbon Dioxide Anion Gap BUN Creatinine Est GFR (CKD-EPI)AfAm Est GFR (CKD-EPI)NonAf Random Glucose Calcium Total Bilirubin AST ALT Alkaline Phosphatase Total Protein Albumin POC Urine HCG, Qual RPR Titer Nonreactive LABS NOTED. Assessment: 08/04/18 18:10 WITHDRAWAL SYMPTOMS. Plan: CONTINUE DETOX.
[2018-08-04] MEDS: THIAMINE HCL 100 MG TABLET (FP) PO SCH (22:18)
[2018-08-05] MEDS: chlordiazePOXIDE HCL 25 MG CAPSULE PO SCH ×2 (06:14→11:25)
[2018-08-05] MEDS: GABAPENTIN 300 MG CAPSULE (FP) PO SCH ×2 (07:26→14:31)
[2018-08-05] MEDS: PRENATAL VITAMINS W/ FOLIC ACID TABLET (FP) PO SCH (11:25)
[2018-08-05] MEDS: FLUOCINONIDE 0.05% CREAM (60 GM TUBE) TP SCH ×2 (11:25→22:19)
--- NOTE | 2018-08-05 14:57 | PN ---
S CIWA - CIWA Score Nausea/Vomitin-Mild Nausea/No Vomiting Muscle Tremors: 2 Anxiety: 2 Agitation: 2 Paroxysmal Sweats: 1-Minimal Palms Moist Orientation: 0-Oriented Tacttile Disturbances: 0-None Auditory Disturbances: 0-None Visual Disturbances: 0-None Headache: 1-Very Mild CIWA-Ar Total Score: 9 S Progress Note (SOAP) Subjective: feeling better today mild headache social with peers in day room Objective: 08/05/18 14:58 Vital Signs Temperature 98.2 F 08/05/18 14:21 Pulse Rate 76 08/05/18 14:21 Respiratory Rate 18 08/05/18 14:21 Blood Pressure 130/72 08/05/18 14:21 O2 Sat by Pulse Oximetry (%) Laboratory Last Values WBC 5.6 K/mm3 (4.0-10.0) 08/03/18 13:20 RBC 5.08 M/mm3 (3.60-5.2) 08/03/18 13:20 Hgb 13.3 GM/dL (10.7-15.3) 08/03/18 13:20 Hct 41.8 % (32.4-45.2) 08/03/18 13:20 MCV 82.3 fl (80-96) 08/03/18 13:20 MCH 26.3 pg (25.7-33.7) 08/03/18 13:20 MCHC 31.9 g/dl (32.0-36.0) L 08/03/18 13:20 RDW 15.4 % (11.6-15.6) 08/03/18 13:20 Plt Count 223 K/MM3 (134-434) 08/03/18 13:20 MPV 8.2 fl (7.5-11.1) 08/03/18 13:20 Sodium 139 mmol/L (136-145) 08/03/18 13:20 Potassium 4.0 mmol/L (3.5-5.1) 08/03/18 13:20 Chloride 107 mmol/L (98-107) 08/03/18 13:20 Carbon Dioxide 27 mmol/L (21-32) 08/03/18 13:20 Anion Gap 5 MMOL/L (8-16) L 08/03/18 13:20 BUN 8 mg/dL (7-18) 08/03/18 13:20 Creatinine 0.6 mg/dL (0.55-1.3) 08/03/18 13:20 Est GFR (CKD-EPI)AfAm 122.32 08/03/18 13:20 Est GFR (CKD-EPI)NonAf 105.54 08/03/18 13:20 Random Glucose 100 mg/dL (74-106) 08/03/18 13:20 Calcium 8.7 mg/dL (8.5-10.1) 08/03/18 13:20 Total Bilirubin 0.4 mg/dL (0.2-1) 08/03/18 13:20 AST 12 U/L (15-37) L 08/03/18 13:20 ALT 17 U/L (13-61) 08/03/18 13:20 Alkaline Phosphatase 61 U/L (45-117) 08/03/18 13:20 Total Protein 6.6 g/dl (6.4-8.2) 08/03/18 13:20 Albumin 3.3 g/dl (3.4-5.0) L 08/03/18 13:20 POC Urine HCG, Qual Negative 08/03/18 11:44 RPR Titer Nonreactive (NONREACTIVE) 08/03/18 13:20 lab noted Assessment: 08/05/18 14:59 withdrawal sx Plan: continue detox
[2018-08-05] MEDS ORDERED: chlordiazePOXIDE HCL 10 MG CAPSULE PO PRN (17:00)
[2018-08-05] MEDS: chlordiazePOXIDE HCL 10 MG CAPSULE PO SCH ×2 (18:12→22:17)
[2018-08-05] MEDS: THIAMINE HCL 100 MG TABLET (FP) PO SCH (22:17)
[2018-08-06] MEDS: chlordiazePOXIDE HCL 10 MG CAPSULE PO SCH ×3 (06:06→17:39)
[2018-08-06] MEDS: GABAPENTIN 300 MG CAPSULE (FP) PO SCH ×3 (07:23→22:30)
[2018-08-06] MEDS: FLUOCINONIDE 0.05% CREAM (60 GM TUBE) TP SCH ×2 (11:21→22:30)
[2018-08-06] MEDS: PRENATAL VITAMINS W/ FOLIC ACID TABLET (FP) PO SCH (11:21)
--- NOTE | 2018-08-06 13:21 | PN ---
S CIWA - CIWA Score Nausea/Vomitin-No Nausea/No Vomiting Muscle Tremors: 2 Anxiety: 1-Mildly Anxious Agitation: 1-Slight > Activity Paroxysmal Sweats: No Perspiration Orientation: 0-Oriented Tacttile Disturbances: 0-None Auditory Disturbances: 0-None Visual Disturbances: 0-None Headache: 0-None Present CIWA-Ar Total Score: 4 BHS Progress Note (SOAP) Subjective: feeling better today discuss aftercare with staff social with peers in day room Objective: 08/06/18 13:20 Vital Signs Temperature 98.5 F 08/06/18 09:14 Pulse Rate 103 H 08/06/18 09:14 Respiratory Rate 20 08/06/18 09:14 Blood Pressure 123/90 08/06/18 09:14 O2 Sat by Pulse Oximetry (%) Laboratory Last Values WBC 5.6 K/mm3 (4.0-10.0) 08/03/18 13:20 RBC 5.08 M/mm3 (3.60-5.2) 08/03/18 13:20 Hgb 13.3 GM/dL (10.7-15.3) 08/03/18 13:20 Hct 41.8 % (32.4-45.2) 08/03/18 13:20 MCV 82.3 fl (80-96) 08/03/18 13:20 MCH 26.3 pg (25.7-33.7) 08/03/18 13:20 MCHC 31.9 g/dl (32.0-36.0) L 08/03/18 13:20 RDW 15.4 % (11.6-15.6) 08/03/18 13:20 Plt Count 223 K/MM3 (134-434) 08/03/18 13:20 MPV 8.2 fl (7.5-11.1) 08/03/18 13:20 Sodium 139 mmol/L (136-145) 08/03/18 13:20 Potassium 4.0 mmol/L (3.5-5.1) 08/03/18 13:20 Chloride 107 mmol/L (98-107) 08/03/18 13:20 Carbon Dioxide 27 mmol/L (21-32) 08/03/18 13:20 Anion Gap 5 MMOL/L (8-16) L 08/03/18 13:20 BUN 8 mg/dL (7-18) 08/03/18 13:20 Creatinine 0.6 mg/dL (0.55-1.3) 08/03/18 13:20 Est GFR (CKD-EPI)AfAm 122.32 08/03/18 13:20 Est GFR (CKD-EPI)NonAf 105.54 08/03/18 13:20 Random Glucose 100 mg/dL (74-106) 08/03/18 13:20 Calcium 8.7 mg/dL (8.5-10.1) 08/03/18 13:20 Total Bilirubin 0.4 mg/dL (0.2-1) 08/03/18 13:20 AST 12 U/L (15-37) L 08/03/18 13:20 ALT 17 U/L (13-61) 08/03/18 13:20 Alkaline Phosphatase 61 U/L (45-117) 08/03/18 13:20 Total Protein 6.6 g/dl (6.4-8.2) 08/03/18 13:20 Albumin 3.3 g/dl (3.4-5.0) L 08/03/18 13:20 POC Urine HCG, Qual Negative 08/03/18 11:44 RPR Titer Nonreactive (NONREACTIVE) 08/03/18 13:20 lab noted Assessment: 08/06/18 13:21 mild withdrawal sx Plan: continue detox
[2018-08-06] MEDS: THIAMINE HCL 100 MG TABLET (FP) PO SCH (22:30)
[2018-08-07] MEDS: chlordiazePOXIDE HCL 10 MG CAPSULE PO SCH (05:44)
[2018-08-07] MEDS: GABAPENTIN 300 MG CAPSULE (FP) PO SCH (05:45)
[2018-08-07 09:34] VITALS: BP 126/85; PULSE 99; TEMP 97.3
[2018-08-07] MEDS: PRENATAL VITAMINS W/ FOLIC ACID TABLET (FP) PO SCH (10:45)
[2018-08-07] MEDS: FLUOCINONIDE 0.05% CREAM (60 GM TUBE) TP SCH (10:46)
--- NOTE | 2018-08-07 14:20 | DS ---
[facility] Detox Discharge Summary Admission Date: 08/03/18 Discharge Date: 08/07/18 - History Present History: Alcohol Dependence Additional Comments: 52 years old female admitted on 08/03/18 for alcohol withdrawal stabilization completed detox regimen [facility] - Physical Exam Results Vital Signs: Vital Signs Temperature 97.3 F L 08/07/18 09:32 Pulse Rate 99 H 08/07/18 09:32 Respiratory Rate 18 08/07/18 09:32 Blood Pressure 126/85 08/07/18 09:32 O2 Sat by Pulse Oximetry (%) Pertinent Admission Physical Exam Findings: alcohol withdrawal sx Laboratory Last Values WBC 5.6 K/mm3 (4.0-10.0) 08/03/18 13:20 RBC 5.08 M/mm3 (3.60-5.2) 08/03/18 13:20 Hgb 13.3 GM/dL (10.7-15.3) 08/03/18 13:20 Hct 41.8 % (32.4-45.2) 08/03/18 13:20 MCV 82.3 fl (80-96) 08/03/18 13:20 MCH 26.3 pg (25.7-33.7) 08/03/18 13:20 MCHC 31.9 g/dl (32.0-36.0) L 08/03/18 13:20 RDW 15.4 % (11.6-15.6) 08/03/18 13:20 Plt Count 223 K/MM3 (134-434) 08/03/18 13:20 MPV 8.2 fl (7.5-11.1) 08/03/18 13:20 Sodium 139 mmol/L (136-145) 08/03/18 13:20 Potassium 4.0 mmol/L (3.5-5.1) 08/03/18 13:20 Chloride 107 mmol/L (98-107) 08/03/18 13:20 Carbon Dioxide 27 mmol/L (21-32) 08/03/18 13:20 Anion Gap 5 MMOL/L (8-16) L 08/03/18 13:20 BUN 8 mg/dL (7-18) 08/03/18 13:20 Creatinine 0.6 mg/dL (0.55-1.3) 08/03/18 13:20 Est GFR (CKD-EPI)AfAm 122.32 08/03/18 13:20 Est GFR (CKD-EPI)NonAf 105.54 08/03/18 13:20 Random Glucose 100 mg/dL (74-106) 08/03/18 13:20 Calcium 8.7 mg/dL (8.5-10.1) 08/03/18 13:20 Total Bilirubin 0.4 mg/dL (0.2-1) 08/03/18 13:20 AST 12 U/L (15-37) L 08/03/18 13:20 ALT 17 U/L (13-61) 08/03/18 13:20 Alkaline Phosphatase 61 U/L (45-117) 08/03/18 13:20 Total Protein 6.6 g/dl (6.4-8.2) 08/03/18 13:20 Albumin 3.3 g/dl (3.4-5.0) L 08/03/18 13:20 POC Urine HCG, Qual Negative 08/03/18 11:44 RPR Titer Nonreactive (NONREACTIVE) 08/03/18 13:20 lab noted - Treatment Hospital Course: Detox Protocol Followed, Detoxed Safely, Responded well, Discharged Condition Good, Rehab Referral Accepted Patient has Accepted a [facility] Referral to: [facility] - Medication Discharge Medications: Ambulatory Orders traZODone HCL [Trazodone HCl] 50 mg PO HS 04/08/18 Gabapentin [Neurontin -] 600 mg PO Q8H 08/03/18 Risperidone [Risperdal] 2 mg PO DAILY 08/03/18 Fluocinonide 0.05% Cream [Lidex 0.05% Cream -] 1 applic TP BID 08/07/18 - Diagnosis (1) Alcohol dependence with uncomplicated withdrawal Status: Acute (2) Eczema Status: Chronic Qualifiers: Eczema type: flexural Qualified Code(s): L20.82 - Flexural eczema (3) Nicotine dependence Status: Acute Qualifiers: Nicotine product type: cigarettes Substance use status: in withdrawal Qualified Code(s): F17.213 - Nicotine dependence, cigarettes, with withdrawal (4) Use of cane as ambulatory aid Status: Chronic (5) Substance induced mood disorder Status: Suspected - AMA Did Patient Leave Against Medical Advice: No
== END 2018-08-07 13:00 | disposition other institution (70) | DRG 774 ==
LOC: YASAS 10:10 → Y3N 13:52
PROVIDERS: ADMIT Surgery; ATTEND Surgery
PROC: HZ2ZZZZ Detoxification Services for Substance Abuse Treatment (ICD-10-PCS; principal; 2018-08-03)
DX: F10.230 Alcohol dependence with withdrawal, uncomplicated (principal); F14.20 Cocaine dependence, uncomplicated; F12.20 Cannabis dependence, uncomplicated; F17.210 Nicotine dependence, cigarettes, uncomplicated; F25.9 Schizoaffective disorder, unspecified; F19.24 Other psychoactive substance dependence with psychoactive substance-induced mood disorder; L20.82 Flexural eczema; L30.9 Dermatitis, unspecified; M19.90 Unspecified osteoarthritis, unspecified site; G62.9 Polyneuropathy, unspecified; R26.2 Difficulty in walking, not elsewhere classified; Z99.89 Dependence on other enabling machines and devices; Z91.011 Allergy to milk products; Z90.710 Acquired absence of both cervix and uterus; Z91.19 Patient's noncompliance with other medical treatment and regimen; Z91.5 Personal history of self-harm; Z59.0 Homelessness
CPT/HCPCS: 36415; 80053; 81025; 85027; 86593

== ENCOUNTER 2018-08-07 13:22 | Inpatient (IN) | payer OTHER ==
[2018-08-07] MEDS ORDERED: NICOTINE 14 MG/24 HOURS TOPICAL PATCH TD PRN (14:22)
[2018-08-07] MEDS ORDERED: MAGNESIUM HYDROX 2400MG/30ML ORAL SUSPENSION 30 ML CUP PO PRN (14:22)
[2018-08-07] MEDS ORDERED: MAGNESIUM CITRATE 300 ML BOTTLE PO PRN (14:22)
[2018-08-07] MEDS ORDERED: P-EPHED 60MG/TRIPROLIDI 2.5MG TABLET PO PRN (14:22)
[2018-08-07] MEDS ORDERED: LOPERAMIDE HCL 2 MG CAPSULE PO PRN (14:22)
[2018-08-07] MEDS ORDERED: MENTHOL/PHENOL 1 EACH UD MM PRN (14:22)
[2018-08-07] MEDS ORDERED: NICOTINE POLACRILEX 2 MG GUM BUC PRN (14:22)
--- NOTE | 2018-08-07 14:22 | HP ---
[facility] Rehab Assess/Revision - Admission History Admitted to Rehab from: [facility] Date of Admission to Rehab: 08/07/18 - Vital signs Vital Signs: Vital Signs Period Temp Pulse Resp BP Sys/[place] Pulse Ox Last 24 Hr 97.8 F 105 18 105/74 - Findings Detox History & Physical reviewed: Yes Concur with findings: Yes Comments/Additional Findings: transferred from detox to rehab admission as per protocol Inpatient Rehab Admission - Rehab Decision to Admit Inpatient rehab admission?: Yes - Initial Determination Are CD services needed?: Yes Free of communicable disease: Yes Not in need of hospitalization: Yes - Rehab Admission Criteria Previous failed treatment: Yes Poor recovery environment: Yes Comorbidities: Yes Lacks judgement: No Patient is meeting Inpatient Rehab admission criteria:: Yes
[2018-08-07] MEDS: IBUPROFEN 400 MG TABLET (FP) PO PRN (14:57)
[2018-08-07] MEDS: GABAPENTIN 100 MG CAPSULE (FP) PO SCH ×2 (16:01→23:12)
[2018-08-07] MEDS: FLUOCINONIDE 0.05% CREAM (15 GM TUBE) TP SCH (23:12)
[2018-08-07] MEDS: THIAMINE HCL 100 MG TABLET (FP) PO SCH (23:14)
[2018-08-08] MEDS: GABAPENTIN 300 MG CAPSULE (FP) PO SCH ×3 (06:52→21:59)
[2018-08-08] MEDS: IBUPROFEN 400 MG TABLET (FP) PO PRN (06:53)
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
[2018-08-08] MEDS: PRENATAL VITAMINS W/ FOLIC ACID TABLET (FP) PO SCH (10:28)
[2018-08-08] MEDS: FLUOCINONIDE 0.05% CREAM (15 GM TUBE) TP SCH ×2 (10:29→21:59)
[2018-08-08] MEDS: risperiDONE 2 MG TABLET PO SCH (10:29)
[2018-08-08] MEDS: ACETAMINOPHEN 325 MG TABLET (FP) PO PRN (10:30)
[2018-08-08] MEDS: THIAMINE HCL 100 MG TABLET (FP) PO SCH (22:00)
[2018-08-08] MEDS: traZODone HCL 50 MG TABLET (FP) PO SCH (22:00)
[2018-08-09] MEDS: IBUPROFEN 400 MG TABLET (FP) PO PRN (06:32)
[2018-08-09] MEDS: GABAPENTIN 300 MG CAPSULE (FP) PO SCH ×3 (06:32→22:30)
[2018-08-09] MEDS: FLUOCINONIDE 0.05% CREAM (15 GM TUBE) TP SCH ×2 (10:09→22:30)
[2018-08-09] MEDS: PRENATAL VITAMINS W/ FOLIC ACID TABLET (FP) PO SCH (10:09)
[2018-08-09] MEDS: risperiDONE 2 MG TABLET PO SCH (10:10)
[2018-08-09] MEDS: traZODone HCL 50 MG TABLET (FP) PO SCH (22:30)
[2018-08-09] MEDS: THIAMINE HCL 100 MG TABLET (FP) PO SCH (22:30)
[2018-08-10] MEDS: GABAPENTIN 300 MG CAPSULE (FP) PO SCH ×3 (06:25→23:17)
[2018-08-10] MEDS ORDERED: PT OWN MED DRAWER 7, Y5N ONE (08:44)
[2018-08-10] MEDS: risperiDONE 2 MG TABLET PO SCH (10:06)
[2018-08-10] MEDS: PRENATAL VITAMINS W/ FOLIC ACID TABLET (FP) PO SCH (10:06)
[2018-08-10] MEDS: FLUOCINONIDE 0.05% CREAM (15 GM TUBE) TP SCH ×2 (10:06→23:17)
[2018-08-10] MEDS: ACETAMINOPHEN 325 MG TABLET (FP) PO PRN (23:14)
[2018-08-10] MEDS: traZODone HCL 50 MG TABLET (FP) PO SCH (23:17)
[2018-08-10] MEDS: THIAMINE HCL 100 MG TABLET (FP) PO SCH (23:17)
[2018-08-10] MEDS: MELATONIN 5 MG TABLETS PO PRN (23:18)
[2018-08-11] MEDS: GABAPENTIN 300 MG CAPSULE (FP) PO SCH ×3 (06:58→21:29)
[2018-08-11] MEDS: IBUPROFEN 400 MG TABLET (FP) PO PRN ×3 (06:59→21:29)
[2018-08-11] MEDS ORDERED: PT OWN MED DRAWER 7, Y5N ONE ×3 (08:29→20:22)
[2018-08-11] MEDS: PRENATAL VITAMINS W/ FOLIC ACID TABLET (FP) PO SCH (09:24)
[2018-08-11] MEDS: FLUOCINONIDE 0.05% CREAM (15 GM TUBE) TP SCH ×2 (09:24→21:30)
[2018-08-11] MEDS: risperiDONE 2 MG TABLET PO SCH (09:24)
[2018-08-11] MEDS: guaiFENesin 200 MG/10 ML 10 ML UNIT-DOSE CUPS PO PRN (14:29)
[2018-08-11] MEDS: THIAMINE HCL 100 MG TABLET (FP) PO SCH (21:29)
[2018-08-11] MEDS: traZODone HCL 50 MG TABLET (FP) PO SCH (21:30)
[2018-08-12] MEDS: GABAPENTIN 300 MG CAPSULE (FP) PO SCH ×3 (07:39→22:06)
[2018-08-12] MEDS: IBUPROFEN 400 MG TABLET (FP) PO PRN (07:40)
[2018-08-12] MEDS: risperiDONE 2 MG TABLET PO SCH (10:02)
[2018-08-12] MEDS: PRENATAL VITAMINS W/ FOLIC ACID TABLET (FP) PO SCH (10:02)
[2018-08-12] MEDS: ACETAMINOPHEN 325 MG TABLET (FP) PO PRN (10:03)
[2018-08-12] MEDS: FLUOCINONIDE 0.05% CREAM (15 GM TUBE) TP SCH ×2 (10:04→23:06)
[2018-08-12] MEDS ORDERED: PT OWN MED DRAWER 7, Y5N ONE (20:08)
[2018-08-12] MEDS: traZODone HCL 50 MG TABLET (FP) PO SCH (22:06)
[2018-08-12] MEDS: THIAMINE HCL 100 MG TABLET (FP) PO SCH (22:07)
[2018-08-12] MEDS: MELATONIN 5 MG TABLETS PO PRN (23:05)
[2018-08-13] MEDS: GABAPENTIN 300 MG CAPSULE (FP) PO SCH ×3 (07:44→21:18)
[2018-08-13] MEDS: PRENATAL VITAMINS W/ FOLIC ACID TABLET (FP) PO SCH (10:07)
[2018-08-13] MEDS: FLUOCINONIDE 0.05% CREAM (15 GM TUBE) TP SCH ×2 (10:07→21:19)
[2018-08-13] MEDS: risperiDONE 2 MG TABLET PO SCH (10:07)
[2018-08-13] MEDS: IBUPROFEN 400 MG TABLET (FP) PO PRN (10:08)
[2018-08-13] MEDS ORDERED: PT OWN MED DRAWER 7, Y5N ONE ×2 (10:29→20:18)
[2018-08-13] MEDS: ACETAMINOPHEN 325 MG TABLET (FP) PO PRN (11:12)
[2018-08-13] MEDS: MELATONIN 5 MG TABLETS PO PRN (21:18)
[2018-08-13] MEDS: THIAMINE HCL 100 MG TABLET (FP) PO SCH (21:18)
[2018-08-13] MEDS: traZODone HCL 50 MG TABLET (FP) PO SCH (21:19)
[2018-08-14] MEDS: GABAPENTIN 300 MG CAPSULE (FP) PO SCH ×3 (08:31→21:29)
[2018-08-14] MEDS: PRENATAL VITAMINS W/ FOLIC ACID TABLET (FP) PO SCH (09:56)
[2018-08-14] MEDS: risperiDONE 2 MG TABLET PO SCH (09:56)
[2018-08-14] MEDS: FLUOCINONIDE 0.05% CREAM (15 GM TUBE) TP SCH ×2 (09:56→21:30)
[2018-08-14] MEDS: IBUPROFEN 400 MG TABLET (FP) PO PRN (09:57)
--- NOTE | 2018-08-14 12:30 | PN ---
[facility] Progress Note Note: patient preferring regular diet
[2018-08-14] MEDS: LIDOCAINE 5% TOPICAL PATCH TP SCH (15:29)
[2018-08-14] MEDS: THIAMINE HCL 100 MG TABLET (FP) PO SCH (21:29)
[2018-08-14] MEDS: MELATONIN 5 MG TABLETS PO PRN (21:30)
[2018-08-14] MEDS: LIDOCAINE PATCH REMOVAL MC SCH (21:30)
[2018-08-14] MEDS: traZODone HCL 50 MG TABLET (FP) PO SCH (21:31)
[2018-08-14] MEDS: METHYL SALICYLATE/MENTHOL OINT 30 GM TUBE TP SCH (21:31)
[2018-08-14] MEDS: guaiFENesin 200 MG/10 ML 10 ML UNIT-DOSE CUPS PO PRN (22:49)
[2018-08-15] MEDS: GABAPENTIN 300 MG CAPSULE (FP) PO SCH ×3 (06:43→21:28)
[2018-08-15] MEDS: MAG HYDROX/AL HYDROX/SIMETH 30 ML UNIT-DOSE CUP PO PRN ×2 (10:03→21:29)
[2018-08-15] MEDS: guaiFENesin 200 MG/10 ML 10 ML UNIT-DOSE CUPS PO PRN ×2 (10:03→21:28)
[2018-08-15] MEDS: risperiDONE 2 MG TABLET PO SCH (10:04)
[2018-08-15] MEDS: LIDOCAINE 5% TOPICAL PATCH TP SCH (10:04)
[2018-08-15] MEDS: IBUPROFEN 400 MG TABLET (FP) PO PRN (10:04)
[2018-08-15] MEDS: PRENATAL VITAMINS W/ FOLIC ACID TABLET (FP) PO SCH (10:04)
[2018-08-15] MEDS: METHYL SALICYLATE/MENTHOL OINT 30 GM TUBE TP SCH (10:06)
[2018-08-15] MEDS: FLUOCINONIDE 0.05% CREAM (15 GM TUBE) TP SCH ×2 (10:06→21:30)
[2018-08-15] MEDS: ACETAMINOPHEN 325 MG TABLET (FP) PO PRN (13:18)
--- NOTE | 2018-08-15 13:24 | PN ---
[facility]HS Progress Note (SOAP) Subjective: PT C/O COUGH WITH BROWNISH TO DARK SPUTUM. PT DENIES HX ASTHMA, RUNNY NOSE OR ANY OTHER URI SYMPTOMS. PT REPORTS COUGHING HAPPENS ONLY AT NIGHT AND SPUTUM ON AWAKENING IN THE MORNING. DENIED IT HAPPENS THROUGHOUT THE COURSE OF THE DAY. REPORTS SHE TOOK COUGH MEDICINE WHEN IT HAPPENS WITH SOME RELIEF. Objective: 08/15/18 13:21 Vital Signs 08/15/18 08/15/18 07:14 09:10 Temperature 98.7 F Pulse Rate 88 Respiratory 18 18 Rate Blood Pressure 100/67 HEENT:NO REDNESS/SWELLING/EXUDATE TO PHARYNGEAL AREA. PERRLA, EOMI. CARDIAC:S1 S2; RRR (-)MM LUNGS:CTA, BAL. Assessment: 08/15/18 13:24 R/O POST NASAL DRIP Plan: TAMIR JONES PRN INCREASE PO FLUIDS. D/W PT NEED TO MONITOR PATIENT'S SX.
[2018-08-15] MEDS: THIAMINE HCL 100 MG TABLET (FP) PO SCH (21:28)
[2018-08-15] MEDS: MELATONIN 5 MG TABLETS PO PRN (21:29)
[2018-08-15] MEDS: traZODone HCL 50 MG TABLET (FP) PO SCH (21:30)
[2018-08-15] MEDS: LIDOCAINE PATCH REMOVAL MC SCH (23:27)
[2018-08-16] MEDS: GABAPENTIN 300 MG CAPSULE (FP) PO SCH (06:59)
[2018-08-16] MEDS: IBUPROFEN 400 MG TABLET (FP) PO PRN (06:59)
[2018-08-16] MEDS: guaiFENesin 200 MG/10 ML 10 ML UNIT-DOSE CUPS PO PRN (07:00)
[2018-08-16 07:28] VITALS: BP 118/77; PULSE 80; TEMP 98.4
[2018-08-16] MEDS ORDERED: PT OWN MED DRAWER 7, Y5N ONE (08:23)
[2018-08-16] MEDS: METHYL SALICYLATE/MENTHOL OINT 30 GM TUBE TP SCH (10:05)
[2018-08-16] MEDS: PRENATAL VITAMINS W/ FOLIC ACID TABLET (FP) PO SCH (10:05)
[2018-08-16] MEDS: LIDOCAINE 5% TOPICAL PATCH TP SCH (10:05)
[2018-08-16] MEDS: risperiDONE 2 MG TABLET PO SCH (10:06)
[2018-08-16] MEDS: FLUOCINONIDE 0.05% CREAM (15 GM TUBE) TP SCH (10:06)
--- NOTE | 2018-08-16 10:07 | PN ---
[facility]HS Progress Note (SOAP) Subjective: PT REQUESTING EARLY DISCHARGE DUE TO FAMILY ISSUES. PT HAS BEEN REFERRED TO [facility] FOR CD AFTERCARE, MEDICAL AND MENTAL MANAGEMENT. PT REPORTS HE HAS OWN MEDS AND WILL FOLLOW UP WITH HER PROVIDER DR HOLDER(FORGOT HER LAST NAME) AT [facility] FOR MEDICAL MANAGEMENT. . PT IS ALERT O X 3. DENIES S/H/I. Home Medications Medication Instructions Recorded traZODone HCL [Trazodone HCl] 50 mg PO HS 04/08/18 Gabapentin [Neurontin -] 600 mg PO Q8H 08/03/18 Risperidone [Risperdal] 2 mg PO DAILY 08/03/18 Fluocinonide 0.05% Cream [Lidex 1 applic TP BID 08/07/18 0.05% Cream -] Risperidone [Risperdal] 2 mg PO DAILY #20 tablet 08/16/18 traZODone HCL [Trazodone HCl] 50 mg PO HS #30 tablet 08/16/18 Vital Signs - 24 hr 08/16/18 08/16/18 08/16/18 00:30 03:30 07:27 Temperature 98.4 F Pulse Rate 80 Respiratory 18 18 18 Rate Blood Pressure 118/77 NAD PLAN:FOLLOW UP WITH CD AFTERCARE RECOMMENDATIONS FOLLOW UP WITH PCP DR DR HOLDER FOR MEDICAL MANAGEMENT 1-2 WEEKS AFTER DISCHARGE.
--- NOTE | 2018-08-16 10:17 | PN ---
[facility] Progress Note Note: Psychiatry Attending's note : Called for scripts. Patient is discharged today. Chart reviewed. Dr John's note of 08/08/18 : read.
== END 2018-08-16 10:35 | disposition home or self-care (01) | DRG 772 ==
LOC: YASAS 13:22 → Y3E 13:23
PROVIDERS: ADMIT Neuromusculoskeletal Medicine & OMM; ATTEND Neuromusculoskeletal Medicine & OMM
PROC: HZ42ZZZ Group Counseling for Substance Abuse Treatment, Cognitive-Behavioral (ICD-10-PCS; principal; 2018-08-07)
DX: F10.20 Alcohol dependence, uncomplicated (principal); F14.20 Cocaine dependence, uncomplicated; F12.20 Cannabis dependence, uncomplicated; F17.210 Nicotine dependence, cigarettes, uncomplicated; F19.24 Other psychoactive substance dependence with psychoactive substance-induced mood disorder; F19 Other psychoactive substance related disorders; F25.8 Other schizoaffective disorders; D64.9 Anemia, unspecified; G62.9 Polyneuropathy, unspecified; L20.82 Flexural eczema; L30.9 Dermatitis, unspecified; R26.89 Other abnormalities of gait and mobility; Z99.89 Dependence on other enabling machines and devices; Z59.0 Homelessness; Z90.79 Acquired absence of other genital organ(s)

== ENCOUNTER 2019-05-10 11:39 | Inpatient (IN) | payer OTHER ==
--- NOTE | 2019-05-10 12:26 | BHS.RME ---
Substance Use & Tx History - Substance Use History Alcohol Substance amount: 10 beers Frequency of use: Daily Substance route: Oral Date of Last Use: 05/09/19 Cocaine (Crack) Substance amount: $300 Frequency of use: Daily Substance route: Smoking Date of Last Use: 05/09/19 CIWA Nausea/Vomitin-No Nausea/No Vomiting Muscle Tremors: 2 Anxiety: 0-No Anxiety, at Ease Agitation: 0-Normal Activity Paroxysmal Sweats: No Perspiration Orientation: 2-Disoriented Date<2 days Tacttile Disturbances: 0-None Auditory Disturbances: 0-None Visual Disturbances: 0-None Headache: 0-None Present CIWA-Ar Total Score: 4 Treatment Recommendation - Level of Care Level of Care: Outpatient (No rehab bed available. Breathylyzer 0.00 and main problem is crack use. Patient is homeless.)
[2019-05-10 12:57] VITALS: BMI 31.0
--- NOTE | 2019-05-10 14:47 | HP ---
CIWA Score Nausea/Vomitin-No Nausea/No Vomiting Muscle Tremors: 2 Anxiety: 0-No Anxiety, at Ease Agitation: 0-Normal Activity Paroxysmal Sweats: No Perspiration Orientation: 2-Disoriented Date<2 days Tacttile Disturbances: 0-None Auditory Disturbances: 0-None Visual Disturbances: 0-None Headache: 0-None Present CIWA-Ar Total Score: 4 - Admission Criteria OASAS Guidelines: Admission for Medically Managed Detox: Requires at least one of the followin. CIWA greater than 12 2. Seizures within the past 24 hours 3. Delirium tremens within the past 24 hours 4. Hallucinations within the past 24 hours 5. Acute intervention needed for co occurring medical disorder 6. Acute intervention needed for co occurring psychiatric disorder 7. Severe withdrawal that cannot be handled at a lower level of care (continued vomiting, continued diarrhea, abnormal vital signs) requiring intravenous medication and/or fluids 8. Admitting History and Physical - Admission Chief Complaint: " I want to stop using alcohol and crack." History of Present Illness: 53 year old black female with alcohol dependence, cocaine use disorder and cannabis use disorder. She was last here in [facility] on 08/03-08/16/18 Detox and rehab but early discharged to be seen at [facility] but she did not follow up with it. She relapsed immediately upon discharge. PMH: Anemia Psych: Depression SA by overdose many years ago. Not on any meds now. Psurg: Hysterectomy 2011 and C/S 2012 Alcohol: 10 beers daily , last used yesterday. Crack: $300, daily last used yesterday. She is homeless, has poor support systems, poor judgment and needs CD services. She is appropriate for rehab admission History Source: Patient Limitations to Obtaining History: No Limitations - Past Medical History ...LMP: 11/27/11 - Past Surgical History Past Surgical History: Yes: , Hysterectomy - Smoking History Smoking history: Current every day smoker Have you smoked in the past 12 months: Yes Aproximately how many cigarettes per day: 5 - Alcohol/Substance Use Hx Alcohol Use: Yes - Social History Usual Living Arrangement: Yes: Alone Do you think of yourself as: Straight/Heterosexual ADL: Independent Occupation: unemployed History of Recent Travel: No Admission ROS BHS - HPI Allergies/Adverse Reactions: Allergies Allergy/AdvReac Type Severity Reaction Status Date / Time Fish Containing Products Allergy Severe Hives Verified 08/03/18 10:30 tomato Allergy Severe Hives Verified 08/03/18 10:30 No Known Drug Allergies Allergy Verified 08/03/18 10:30 Milk Containing Products AdvReac diarrhea Verified 08/03/18 10:30 Exam Limitations: No Limitations - Ebola screening Have you traveled outside of the country in the last 21 days: No Have you had contact with anyone from an Ebola affected area: No Have you been sick,other than usual withdrawal symptoms: No Do you have a fever: No - Review of Systems Constitutional: Unintentional Wgt. Loss EENT: reports: No Symptoms Reported Respiratory: reports: No Symptoms reported Cardiac: reports: No Symptoms Reported GI: reports: No Symptoms Reported : reports: No Symptoms Reported Musculoskeletal: reports: No Symptoms Reported Integumentary: reports: No Symptoms Reported Neuro: reports: No Symptoms reported Endocrine: reports: No Symptoms Reported Hematology: reports: No Symptoms Reported Psychiatric: reports: Judgement Intact, Mood/Affect Appropiate, Orientated x3 Other Systems: Reviewed and Negative Patient History - Patient Medical History Hx Anemia: Yes (NO MED) Hx Asthma: No Hx Chronic Obstructive Pulmonary Disease (COPD): No Hx Cancer: No Hx Cardiac Disorders: No Hx Congestive Heart Failure: No Hx Hypertension: No Hx Hypercholesterolemia: No Hx Pacemaker: No HX Cerebrovascular Accident: No Hx Seizures: No Hx Dementia: No Hx Diabetes: No Hx Gastrointestinal Disorders: No Hx Liver Disease: No Hx Genitourinary Disorders: No Hx Sexually Transmitted Disorders: No Hx Renal Disease (ESRD): No Hx Thyroid Disease: No Hx Human Immunodeficiency Virus (HIV): No ( NEGATIVE HX 04/14) Hx Hepatitis C: No Hx Depression: Yes Hx Suicide Attempt: Yes (with pills 2015) Hx Bipolar Disorder: No Hx Schizophrenia: Yes - Patient Surgical History Past Surgical History: Yes Hx Neurologic Surgery: No Hx Cataract Extraction: No Hx Cardiac Surgery: No Hx Lung Surgery: No Hx Breast Surgery: No Hx Breast Biopsy: No Hx Abdominal Surgery: Yes (partial hystertctomy in 2011) Hx Appendectomy: No Hx Cholecystectomy: No Hx Genitourinary Surgery: No Hx Section: Yes (x3) Hx Orthopedic Surgery: No Hx Hysterectomy: Yes (PARTIAL HYSTERCTOMY FOR FIBROID IN 2011) Anesthesia Reaction: No - PPD History Previous Implant?: Yes Documented Results: Negative w/proof Implanted On Prior R Admission?: Yes Date: 08/05/18 Results: 0mm PPD to be Administered?: No - Reproductive History Last Menstrual Period: 11/27/11 - Smoking Cessation Smoking history: Current every day smoker Have you smoked in the past 12 months: Yes Aproximately how many cigarettes per day: 5 Cigars Per Day: 0 Hx Chewing Tobacco Use: No Initiated information on smoking cessation: Yes 'Breaking Loose' booklet given: 05/10/19 - Substances abused Alcohol Substance route: Oral Frequency: 3-6 times per week Amount used: 10 beers Age of first use: 31 Date of last use: 05/09/19 Crack Substance route: Smoking Frequency: Daily Amount used: $300 Age of first use: 37 Date of last use: 05/09/19 Admission Physical Exam BHS - Vital Signs Vital Signs: Vital Signs - 24 hr 05/10/19 12:56 Temperature 98.2 F Pulse Rate 92 H Respiratory 18 Rate Blood Pressure 146/90 - Physical General Appearance: Yes: Disheveled HEENTM: Yes: EOMI, Hearing grossly Normal, Normal ENT Inspection, Normocephalic , Normal Voice, CARLOS, Pharynx Normal, Tm's normal Respiratory: Yes: Chest Non-Tender, Lungs Clear, Normal Breath Sounds, No Respiratory Distress, No Accessory Muscle Use Neck: Yes: No masses,lesions,Nodules, Supple, Trachea in good position Breast: Yes: Breast Exam Deferred Cardiology: Yes: Regular Rhythm, S1, S2, Tachycardia Abdominal: Yes: Normal Bowel Sounds, Non Tender, Flat, Soft Genitourinary: Yes: Within Normal Limits Back: Yes: Normal Inspection Musculoskeletal: Yes: full range of Motion, Gait Steady, Pelvis Stable Extremities: Yes: Normal Capillary Refill, Normal Inspection, Normal Range of Motion, Non-Tender Neurological: Yes: carbide tool die maker II-XII NML intact, Fully Oriented, Alert, Motor Strength 5/5, Normal Mood/Affect, Normal Response Integumentary: Yes: Normal Color, Warm Lymphatic: Yes: Within Normal Limits - Diagnostic (1) Substance induced mood disorder Current Visit: Yes Status: Acute (2) Substance-induced sleep disorder Current Visit: Yes Status: Acute (3) Alcohol dependence Current Visit: Yes Status: Chronic Qualifiers: Substance use status: uncomplicated Qualified Code(s): F10.20 - Alcohol dependence, uncomplicated (4) Nicotine dependence Current Visit: Yes Status: Chronic Qualifiers: Nicotine product type: cigarettes Substance use status: in withdrawal Qualified Code(s): F17.213 - Nicotine dependence, cigarettes, with withdrawal (5) Non-compliance Current Visit: Yes Status: Chronic (6) History of partial hysterectomy Current Visit: Yes Status: Resolved Screened but not Admitted - Documentation of Visit Screened but not Admitted: No Breathalyzer - Breathalyzer Breathalyzer: 0 Urine Drug Screen - Test Device Lot number: [id number] Expiration date: 04/26/20 - Control Is test valid?: Yes - Results Drug screen NEGATIVE: No Urine drug screen results: NEGRA-Cocaine Inpatient Rehab Admission - Rehab Decision to Admit Inpatient rehab admission?: Yes - Initial Determination Are CD services needed?: Yes Free of communicable disease: Yes Not in need of hospitalization: Yes - Rehab Admission Criteria Previous failed treatment: Yes Poor recovery environment: Yes Comorbidities: Yes Lacks judgement: Yes Patient is meeting Inpatient Rehab admission criteria:: Yes
[2019-05-10] MEDS ORDERED: MAGNESIUM HYDROX 2400MG/30ML ORAL SUSPENSION 30 ML CUP PO PRN (14:55)
[2019-05-10] MEDS ORDERED: P-EPHED 60MG/TRIPROLIDI 2.5MG TABLET PO PRN (14:55)
[2019-05-10] MEDS ORDERED: LOPERAMIDE HCL 2 MG CAPSULE PO PRN (14:55)
[2019-05-10] MEDS ORDERED: ACETAMINOPHEN 325 MG TABLET (FP) PO PRN (14:55)
[2019-05-10] MEDS ORDERED: MAGNESIUM CITRATE 300 ML BOTTLE PO PRN (14:55)
[2019-05-10] MEDS ORDERED: MENTHOL/PHENOL 1 EACH UD MM PRN (14:55)
[2019-05-10 16:55] LABS: HEMATOCRIT 38.6 % (32.4-45.2); HEMOGLOBIN 12.5 GM/dL (10.7-15.3); MCH 26.4 pg (25.7-33.7); MCHC 32.3 g/dl (32.0-36.0); MEAN CELL VOLUME 81.7 fl (80-96); MEAN PLT VOLUME 8.2 fl (7.5-11.1); PLATELET COUNT 220 K/MM3 (134-434); RBC 4.72 M/mm3 (3.60-5.2); RDW 15.8 % (11.6-15.6); WHITE BLOOD COUNT 4.9 K/mm3 (4.0-10.0)
[2019-05-10 17:02] LABS: ALBUMIN 3.1 g/dl (3.4-5.0); BILIRUBIN,TOTAL 0.2 mg/dL (0.2-1); CALCIUM 8.4 mg/dL (8.5-10.1); CREATININE 0.7 mg/dL (0.55-1.3); POTASSIUM 3.6 mmol/L (3.5-5.1); TOT PROT 6.5 g/dl (6.4-8.2)
[2019-05-10] MEDS: NICOTINE 7 MG/24 HOURS TOPICAL PATCH TD SCH (18:00)
[2019-05-10] MEDS ORDERED: MELATONIN 5 MG TABLETS PO PRN (22:00)
[2019-05-10] MEDS: THIAMINE HCL 100 MG TABLET (FP) PO SCH (23:06)
[2019-05-11] MEDS: PRENATAL VITAMINS W/ FOLIC ACID TABLET (FP) PO SCH (10:48)
[2019-05-11] MEDS: NICOTINE 7 MG/24 HOURS TOPICAL PATCH TD SCH (10:48)
--- NOTE | 2019-05-11 17:25 | CONSULT ---
[facility] Psychiatric Consult - Data Date of interview: 05/11/19 Admission source: [facility] Identifying data: Patient is approached for the requested psychiatric evaluation. Taken to the consultation office in the presence of RN Mya Lundy. Interview could not be conducted due to the patient's uncooperativeness. Ms Dorsey argues that she is tired of being asked questions. " I requested detox, not rehab or psychiatric evaluation." Patient declines psychiatric interview. Nursing staff is aware.
[2019-05-11] MEDS: THIAMINE HCL 100 MG TABLET (FP) PO SCH (21:10)
[2019-05-12] MEDS: NICOTINE 7 MG/24 HOURS TOPICAL PATCH TD SCH (10:52)
[2019-05-12] MEDS: PRENATAL VITAMINS W/ FOLIC ACID TABLET (FP) PO SCH (10:52)
[2019-05-12] MEDS: THIAMINE HCL 100 MG TABLET (FP) PO SCH (21:48)
[2019-05-13 10:20] LABS: EPI CELLS 6.6 /HPF (0-5/HPF); HYALINE CASTS 1 /lpf (0-8); URINE APPEARANCE CLEAR; URINE BACTERIA 109.9 /hpf (NEGATIVE); URINE BILIRUBIN NEGATIVE (NEGATIVE); URINE COLOR YELLOW; URINE GLUCOSE (UA) NEGATIVE (NEGATIVE); URINE KETONE NEGATIVE (NEGATIVE); URINE LEUK ESTERASE NEGATIVE (NEGATIVE); URINE NITRITE NEGATIVE (NEGATIVE); URINE PROTEIN NEGATIVE (NEGATIVE); URINE RBC 4 /hpf (0-4); URINE UROBILINOGEN 0.2 mg/dL (0.2-1.0); URINE WBC 2 /hpf (0-5)
--- NOTE | 2019-05-13 10:32 | EKG ---
Test Reason : Blood Pressure : / mmHG Vent. Rate : 092 BPM Atrial Rate : 092 BPM P-R Int : 126 ms QRS Dur : 090 ms QT Int : 378 ms P-R-T Axes : 069 -21 026 degrees QTc Int : 467 ms NORMAL SINUS RHYTHM NORMAL ECG WHEN COMPARED WITH ECG OF 24-JUL-2017 14:37, NO SIGNIFICANT CHANGE WAS FOUND Confirmed by Thierry Littlejohn ([id number]) on 05/13/2019 10:32:10 AM Referred By: Confirmed By:Thierry Littlejohn
[2019-05-13] MEDS: NICOTINE 7 MG/24 HOURS TOPICAL PATCH TD SCH (11:43)
[2019-05-13] MEDS: PRENATAL VITAMINS W/ FOLIC ACID TABLET (FP) PO SCH (11:43)
--- NOTE | 2019-05-13 14:54 | PN ---
[facility] Progress Note Note: Pt is a 53 y/o female with a hx of LAINA admitted to rehab from [facility] on 05/10/19. Pt was seen in bed and was reluctant to speak to this provider stating "I don't wanna talk now". Nursing staff reports pt non compliant with unit care regulations-refused Vital signs.(See below). Pt reports he she has a primary care provider in [place], [place]. Vital Signs - 24 hr 05/13/19 05/13/19 00:34 03:21 Respiratory 18 18 Rate Alert o x 3 nad oob ambulating with steady gait extremities/skin:no edema;multiple dark scars on face,hands and lower legs;skin intact. A/P new rehab pt LAINA Maintain safety increase po fluids
[2019-05-13] MEDS: THIAMINE HCL 100 MG TABLET (FP) PO SCH (21:54)
[2019-05-14] MEDS: PRENATAL VITAMINS W/ FOLIC ACID TABLET (FP) PO SCH (11:04)
[2019-05-14] MEDS: NICOTINE 7 MG/24 HOURS TOPICAL PATCH TD SCH (11:04)
[2019-05-14] MEDS: COLLOIDAL OATMEAL 1 BAR EACH TP PRN (21:03)
[2019-05-14] MEDS: guaiFENesin 200 MG/10 ML 10 ML UNIT-DOSE CUPS PO PRN (21:04)
[2019-05-14] MEDS: IBUPROFEN 400 MG TABLET (FP) PO PRN (21:04)
[2019-05-14] MEDS: THIAMINE HCL 100 MG TABLET (FP) PO SCH (21:45)
[2019-05-15] MEDS: NICOTINE 7 MG/24 HOURS TOPICAL PATCH TD SCH (09:22)
[2019-05-15] MEDS: PRENATAL VITAMINS W/ FOLIC ACID TABLET (FP) PO SCH (09:22)
[2019-05-15] MEDS: IBUPROFEN 400 MG TABLET (FP) PO PRN (09:22)
--- NOTE | 2019-05-15 10:05 | PN ---
[facility] Progress Note (SOAP) Subjective: Patient with c/o tingling in her fingers. States she has difficulty holding a cup because of the numbness and pain. PMHx of ETOH abuse, peripheral neuropathy , recently tested for HIV, negative. Her glucose was slightly elevated on admission, but there is no hx of DM2. Objective: 05/15/19 10:02 Laboratory Last Values WBC 4.9 K/mm3 (4.0-10.0) 05/10/19 15:15 RBC 4.72 M/mm3 (3.60-5.2) 05/10/19 15:15 Hgb 12.5 GM/dL (10.7-15.3) 05/10/19 15:15 Hct 38.6 % (32.4-45.2) 05/10/19 15:15 MCV 81.7 fl (80-96) 05/10/19 15:15 MCH 26.4 pg (25.7-33.7) 05/10/19 15:15 MCHC 32.3 g/dl (32.0-36.0) 05/10/19 15:15 RDW 15.8 % (11.6-15.6) H 05/10/19 15:15 Plt Count 220 K/MM3 (134-434) 05/10/19 15:15 MPV 8.2 fl (7.5-11.1) 05/10/19 15:15 Sodium 145 mmol/L (136-145) 05/10/19 15:15 Potassium 3.6 mmol/L (3.5-5.1) 05/10/19 15:15 Chloride 110 mmol/L (98-107) H 05/10/19 15:15 Carbon Dioxide 30 mmol/L (21-32) 05/10/19 15:15 Anion Gap 5 MMOL/L (8-16) L 05/10/19 15:15 BUN 10.0 mg/dL (7-18) 05/10/19 15:15 Creatinine 0.7 mg/dL (0.55-1.3) 05/10/19 15:15 Est GFR (CKD-EPI)AfAm 115.45 05/10/19 15:15 Est GFR (CKD-EPI)NonAf 99.62 05/10/19 15:15 Random Glucose 116 mg/dL (74-106) H 05/10/19 15:15 Calcium 8.4 mg/dL (8.5-10.1) L 05/10/19 15:15 Total Bilirubin 0.2 mg/dL (0.2-1) 05/10/19 15:15 AST 15 U/L (15-37) 05/10/19 15:15 ALT 23 U/L (13-61) 05/10/19 15:15 Alkaline Phosphatase 68 U/L (45-117) 05/10/19 15:15 Total Protein 6.5 g/dl (6.4-8.2) 05/10/19 15:15 Albumin 3.1 g/dl (3.4-5.0) L 05/10/19 15:15 Urine Color Yellow 05/13/19 08:50 Urine Appearance Clear 05/13/19 08:50 Urine pH 8.0 (5.0-8.0) 05/13/19 08:50 Ur Specific [place] 1.015 (1.010-1.035) 05/13/19 08:50 Urine Protein Negative (NEGATIVE) 05/13/19 08:50 Urine Glucose (UA) Negative (NEGATIVE) 05/13/19 08:50 Urine Ketones Negative (NEGATIVE) 05/13/19 08:50 Urine Blood Trace (NEGATIVE) 05/13/19 08:50 Urine Nitrite Negative (NEGATIVE) 05/13/19 08:50 Urine Bilirubin Negative (NEGATIVE) 05/13/19 08:50 Urine Urobilinogen 0.2 mg/dL (0.2-1.0) 05/13/19 08:50 Ur Leukocyte Esterase Negative (NEGATIVE) 05/13/19 08:50 Urine WBC (Auto) 2 /hpf (0-5) 05/13/19 08:50 Urine RBC (Auto) 4 /hpf (0-4) 05/13/19 08:50 Urine Casts (Auto) 1 /lpf (0-8) 05/13/19 08:50 U Epithel Cells (Auto) 6.6 /HPF (0-5/HPF) 05/13/19 08:50 Urine Bacteria (Auto) 109.9 /hpf (NEGATIVE) 05/13/19 08:50 POC Urine HCG, Qual Negative 05/10/19 15:01 RPR Titer Nonreactive (NONREACTIVE) 05/10/19 15:15 05/15/19 10:05 Vital Signs Period Temp Pulse Resp BP Sys/[place] Pulse Ox Last 24 Hr 98.2 F 76 18-18 137/79 P/E: General: No apparent distress Extremities: +pulses, hand grasp strength equal bilaterally, no edema Neuro: CN 2-12 intact, difficulty with fine motor skins, difficulty distinguishing between sharp or soft touch. Skin: hands-intact, no lacerations, discolorations, scars noted Assessment: Peripheral neuropathy 05/15/19 10:08 Plan: BGM x 2 days Vitamin B level Baclofen ordered. HEP panel ordered.
--- NOTE | 2019-05-15 10:12 | PREP.REFER ---
HIV PrEP/PEP - PrEP HIV Risk Assessment When was your last HIV test?: 2019, 3 months ago, negative HIV Test offered: Refused (Recent test, denies sexual activity) Are you concerned about any sexual encounters past 6 months?: No Have you had a STI in the last 6 months?: No Have you shared needles or other equipment?: No Are you interested in daily medication to help prevent HIV?: No Recommendation: None at this time
[2019-05-15] MEDS: BACLOFEN 10 MG TABLET (FP) PO SCH ×2 (13:12→21:42)
[2019-05-15] MEDS ORDERED: PT OWN MED DRAWER 7, Y5N ONE (19:01)
[2019-05-15] MEDS: THIAMINE HCL 100 MG TABLET (FP) PO SCH (21:43)
[2019-05-16] MEDS: BACLOFEN 10 MG TABLET (FP) PO SCH ×3 (06:52→22:09)
[2019-05-16] MEDS ORDERED: AMMONIUM LACTATE 12% LOTION 225 GM BOTTLE TP PRN (10:31)
[2019-05-16] MEDS: PRENATAL VITAMINS W/ FOLIC ACID TABLET (FP) PO SCH (10:48)
[2019-05-16] MEDS: NICOTINE 7 MG/24 HOURS TOPICAL PATCH TD SCH (10:48)
[2019-05-16] MEDS: COLLOIDAL OATMEAL 1 BAR EACH TP PRN (13:14)
[2019-05-16] MEDS: THIAMINE HCL 100 MG TABLET (FP) PO SCH (22:09)
[2019-05-16] MEDS: TOLNAFTATE 1% CREAM 15 GM TUBE TP SCH (22:09)
[2019-05-17] MEDS ORDERED: PT OWN MED DRAWER 7, Y5N ONE ×2 (05:55→14:08)
[2019-05-17] MEDS: BACLOFEN 10 MG TABLET (FP) PO SCH ×3 (06:38→21:31)
[2019-05-17] MEDS: NICOTINE 7 MG/24 HOURS TOPICAL PATCH TD SCH (10:22)
[2019-05-17] MEDS: PRENATAL VITAMINS W/ FOLIC ACID TABLET (FP) PO SCH (10:22)
[2019-05-17] MEDS: TOLNAFTATE 1% CREAM 15 GM TUBE TP SCH ×2 (10:22→21:32)
[2019-05-17] MEDS: THIAMINE HCL 100 MG TABLET (FP) PO SCH (21:32)
[2019-05-18] MEDS ORDERED: PT OWN MED DRAWER 7, Y5N ONE ×2 (06:24→08:33)
[2019-05-18] MEDS: BACLOFEN 10 MG TABLET (FP) PO SCH ×3 (06:30→22:14)
[2019-05-18] MEDS: PRENATAL VITAMINS W/ FOLIC ACID TABLET (FP) PO SCH (09:09)
[2019-05-18] MEDS: NICOTINE 7 MG/24 HOURS TOPICAL PATCH TD SCH (09:09)
[2019-05-18] MEDS: TOLNAFTATE 1% CREAM 15 GM TUBE TP SCH ×2 (09:09→22:14)
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
[2019-05-18] MEDS: THIAMINE HCL 100 MG TABLET (FP) PO SCH (22:14)
[2019-05-18] MEDS: risperiDONE 1 MG TABLET PO SCH (22:14)
[2019-05-19] MEDS: BACLOFEN 10 MG TABLET (FP) PO SCH ×3 (07:00→22:44)
[2019-05-19] MEDS: PRENATAL VITAMINS W/ FOLIC ACID TABLET (FP) PO SCH (09:19)
[2019-05-19] MEDS: NICOTINE 7 MG/24 HOURS TOPICAL PATCH TD SCH (09:19)
[2019-05-19] MEDS: risperiDONE 1 MG TABLET PO SCH ×2 (09:20→22:44)
[2019-05-19] MEDS: TOLNAFTATE 1% CREAM 15 GM TUBE TP SCH ×2 (09:20→22:44)
[2019-05-19] MEDS: THIAMINE HCL 100 MG TABLET (FP) PO SCH (22:44)
[2019-05-20] MEDS: BACLOFEN 10 MG TABLET (FP) PO SCH ×3 (06:50→22:02)
[2019-05-20] MEDS: risperiDONE 1 MG TABLET PO SCH ×2 (09:54→22:02)
[2019-05-20] MEDS: NICOTINE 7 MG/24 HOURS TOPICAL PATCH TD SCH (09:54)
[2019-05-20] MEDS: PRENATAL VITAMINS W/ FOLIC ACID TABLET (FP) PO SCH (09:54)
[2019-05-20] MEDS: TOLNAFTATE 1% CREAM 15 GM TUBE TP SCH ×2 (09:55→22:02)
[2019-05-20] MEDS: THIAMINE HCL 100 MG TABLET (FP) PO SCH (22:03)
[2019-05-21] MEDS ORDERED: PT OWN MED DRAWER 7, Y5N ONE ×4 (05:55→21:33)
[2019-05-21] MEDS: BACLOFEN 10 MG TABLET (FP) PO SCH ×3 (06:54→21:31)
[2019-05-21] MEDS: PRENATAL VITAMINS W/ FOLIC ACID TABLET (FP) PO SCH (10:14)
[2019-05-21] MEDS: risperiDONE 1 MG TABLET PO SCH ×2 (10:14→21:31)
[2019-05-21] MEDS: TOLNAFTATE 1% CREAM 15 GM TUBE TP SCH ×2 (10:15→21:32)
[2019-05-21] MEDS: NICOTINE 7 MG/24 HOURS TOPICAL PATCH TD SCH (10:15)
[2019-05-21] MEDS ORDERED: ONDANSETRON *ODT* 4 MG TABLET SL PRN (15:05)
[2019-05-21] MEDS: MAG HYDROX/AL HYDROX/SIMETH 30 ML UNIT-DOSE CUP PO PRN (18:22)
[2019-05-21] MEDS: THIAMINE HCL 100 MG TABLET (FP) PO SCH (21:31)
[2019-05-22] MEDS: BACLOFEN 10 MG TABLET (FP) PO SCH ×3 (06:58→22:06)
[2019-05-22] MEDS: PRENATAL VITAMINS W/ FOLIC ACID TABLET (FP) PO SCH (09:57)
[2019-05-22] MEDS: NICOTINE 7 MG/24 HOURS TOPICAL PATCH TD SCH (09:57)
[2019-05-22] MEDS: risperiDONE 1 MG TABLET PO SCH ×2 (09:58→22:07)
[2019-05-22] MEDS: TOLNAFTATE 1% CREAM 15 GM TUBE TP SCH ×2 (09:58→22:07)
--- NOTE | 2019-05-22 11:11 | PN ---
S Progress Note Note: Laboratory Last Values WBC 4.9 K/mm3 (4.0-10.0) 05/10/19 15:15 RBC 4.72 M/mm3 (3.60-5.2) 05/10/19 15:15 Hgb 12.5 GM/dL (10.7-15.3) 05/10/19 15:15 Hct 38.6 % (32.4-45.2) 05/10/19 15:15 MCV 81.7 fl (80-96) 05/10/19 15:15 MCH 26.4 pg (25.7-33.7) 05/10/19 15:15 MCHC 32.3 g/dl (32.0-36.0) 05/10/19 15:15 RDW 15.8 % (11.6-15.6) H 05/10/19 15:15 Plt Count 220 K/MM3 (134-434) 05/10/19 15:15 MPV 8.2 fl (7.5-11.1) 05/10/19 15:15 Sodium 145 mmol/L (136-145) 05/10/19 15:15 Potassium 3.6 mmol/L (3.5-5.1) 05/10/19 15:15 Chloride 110 mmol/L (98-107) H 05/10/19 15:15 Carbon Dioxide 30 mmol/L (21-32) 05/10/19 15:15 Anion Gap 5 MMOL/L (8-16) L 05/10/19 15:15 BUN 10.0 mg/dL (7-18) 05/10/19 15:15 Creatinine 0.7 mg/dL (0.55-1.3) 05/10/19 15:15 Est GFR (CKD-EPI)AfAm 115.45 05/10/19 15:15 Est GFR (CKD-EPI)NonAf 99.62 05/10/19 15:15 POC Glucometer 88 UNITS (80-120) 05/17/19 06:37 Random Glucose 116 mg/dL (74-106) H 05/10/19 15:15 Calcium 8.4 mg/dL (8.5-10.1) L 05/10/19 15:15 Total Bilirubin 0.2 mg/dL (0.2-1) 05/10/19 15:15 AST 15 U/L (15-37) 05/10/19 15:15 ALT 23 U/L (13-61) 05/10/19 15:15 Alkaline Phosphatase 68 U/L (45-117) 05/10/19 15:15 Total Protein 6.5 g/dl (6.4-8.2) 05/10/19 15:15 Albumin 3.1 g/dl (3.4-5.0) L 05/10/19 15:15 Vitamin B12 712 pg/ml (193-986) 05/15/19 10:25 Urine Color Yellow 05/13/19 08:50 Urine Appearance Clear 05/13/19 08:50 Urine pH 8.0 (5.0-8.0) 05/13/19 08:50 Ur Specific [place] 1.015 (1.010-1.035) 05/13/19 08:50 Urine Protein Negative (NEGATIVE) 05/13/19 08:50 Urine Glucose (UA) Negative (NEGATIVE) 05/13/19 08:50 Urine Ketones Negative (NEGATIVE) 05/13/19 08:50 Urine Blood Trace (NEGATIVE) 05/13/19 08:50 Urine Nitrite Negative (NEGATIVE) 05/13/19 08:50 Urine Bilirubin Negative (NEGATIVE) 05/13/19 08:50 Urine Urobilinogen 0.2 mg/dL (0.2-1.0) 05/13/19 08:50 Ur Leukocyte Esterase Negative (NEGATIVE) 05/13/19 08:50 Urine WBC (Auto) 2 /hpf (0-5) 05/13/19 08:50 Urine RBC (Auto) 4 /hpf (0-4) 05/13/19 08:50 Urine Casts (Auto) 1 /lpf (0-8) 05/13/19 08:50 U Epithel Cells (Auto) 6.6 /HPF (0-5/HPF) 05/13/19 08:50 Urine Bacteria (Auto) 109.9 /hpf (NEGATIVE) 05/13/19 08:50 POC Urine HCG, Qual Negative 05/10/19 15:01 RPR Titer Nonreactive (NONREACTIVE) 05/10/19 15:15 Hep C Ab Diagnostic <0.1 s/co ratio (0.0-0.9) 05/15/19 10:25 patient had c/o numbness and tingling in her fingers. Her vitamin B level was drawn and it was normal. She was also started on baclofen. Today, patient states that the numbness and tingling has stopped. Will continue to monitor.
[2019-05-22] MEDS ORDERED: PT OWN MED DRAWER 7, Y5N ONE (15:45)
[2019-05-22] MEDS: THIAMINE HCL 100 MG TABLET (FP) PO SCH (22:07)
[2019-05-23] MEDS: BACLOFEN 10 MG TABLET (FP) PO SCH ×3 (06:35→21:40)
[2019-05-23] MEDS: guaiFENesin 200 MG/10 ML 10 ML UNIT-DOSE CUPS PO PRN (06:35)
[2019-05-23] MEDS: NICOTINE 7 MG/24 HOURS TOPICAL PATCH TD SCH (09:53)
[2019-05-23] MEDS: PRENATAL VITAMINS W/ FOLIC ACID TABLET (FP) PO SCH (09:53)
[2019-05-23] MEDS: risperiDONE 1 MG TABLET PO SCH ×2 (09:53→21:40)
[2019-05-23] MEDS: TOLNAFTATE 1% CREAM 15 GM TUBE TP SCH ×2 (09:55→21:40)
[2019-05-23] MEDS: THIAMINE HCL 100 MG TABLET (FP) PO SCH (21:40)
[2019-05-24] MEDS: BACLOFEN 10 MG TABLET (FP) PO SCH ×3 (06:25→22:06)
[2019-05-24] MEDS: risperiDONE 1 MG TABLET PO SCH (09:56)
[2019-05-24] MEDS: PRENATAL VITAMINS W/ FOLIC ACID TABLET (FP) PO SCH (09:57)
[2019-05-24] MEDS: NICOTINE 7 MG/24 HOURS TOPICAL PATCH TD SCH (09:57)
[2019-05-24] MEDS: TOLNAFTATE 1% CREAM 15 GM TUBE TP SCH ×2 (09:57→22:06)
--- NOTE | 2019-05-24 11:14 | PN ---
[facility] Progress Note Note: Psychiatry Attending's note (follow-up) : Called by nurse Martine Garg. Reason : Discharge summary from [facility]. Now available. Reviewed by this tech writer. Medications at discharge (04/12/19) : Invega 156 mg IM extended release monthly (next dose : 05/10/19) Zoloft 100 mg po daily Remeron 15 mg po hs Trazodone 200 mg po hs Patient seen. Medications discussed with Ms Dorsey. Side effects/benefits of each drug : explained to patient. Ms Dorsey is in agreement with this plan of care. Will discontinue risperdal and resume medications listed above. As follows : Invega Sustenna 156 mg IM (to be dispensed on 05/27/19) Trazodone 100 mg po hs Zoloft 100 mg po daily Remeron is held (no justification for THREE antidepressants) Patient provided informed consent (verbal). Continuity of care. Nursing Education Specialist, Dr Trujillo, is consulted for approval of Invega. Granted. Liaison-Psychiatry will follow on request (as needed).
[2019-05-24] MEDS: SERTRALINE HCL 50 MG TABLET (FP) PO SCH (12:15)
[2019-05-24] MEDS ORDERED: PT OWN MED DRAWER 7, Y5N ONE (18:39)
[2019-05-24] MEDS ORDERED: MIRTAZAPINE 15 MG TABLET (FP) PO SCH (22:00)
[2019-05-24] MEDS: THIAMINE HCL 100 MG TABLET (FP) PO SCH (22:06)
[2019-05-24] MEDS: traZODone HCL 100 MG TABLET (FP) PO SCH (22:06)
[2019-05-25] MEDS: BACLOFEN 10 MG TABLET (FP) PO SCH ×3 (07:48→21:25)
[2019-05-25] MEDS: SERTRALINE HCL 50 MG TABLET (FP) PO SCH (09:55)
[2019-05-25] MEDS: NICOTINE 7 MG/24 HOURS TOPICAL PATCH TD SCH (09:55)
[2019-05-25] MEDS: TOLNAFTATE 1% CREAM 15 GM TUBE TP SCH ×2 (09:55→21:26)
[2019-05-25] MEDS: PRENATAL VITAMINS W/ FOLIC ACID TABLET (FP) PO SCH (09:55)
[2019-05-25] MEDS: traZODone HCL 100 MG TABLET (FP) PO SCH (21:25)
[2019-05-25] MEDS: THIAMINE HCL 100 MG TABLET (FP) PO SCH (21:25)
[2019-05-26] MEDS ORDERED: PT OWN MED DRAWER 7, Y5N ONE ×2 (07:46→08:59)
[2019-05-26] MEDS: BACLOFEN 10 MG TABLET (FP) PO SCH ×3 (08:29→21:43)
[2019-05-26] MEDS: NICOTINE 7 MG/24 HOURS TOPICAL PATCH TD SCH (10:07)
[2019-05-26] MEDS: SERTRALINE HCL 50 MG TABLET (FP) PO SCH (10:07)
[2019-05-26] MEDS: TOLNAFTATE 1% CREAM 15 GM TUBE TP SCH ×2 (10:07→21:44)
[2019-05-26] MEDS: PRENATAL VITAMINS W/ FOLIC ACID TABLET (FP) PO SCH (10:07)
[2019-05-26] MEDS: traZODone HCL 100 MG TABLET (FP) PO SCH (21:43)
[2019-05-26] MEDS: THIAMINE HCL 100 MG TABLET (FP) PO SCH (21:44)
[2019-05-27] MEDS: BACLOFEN 10 MG TABLET (FP) PO SCH ×3 (06:49→22:42)
[2019-05-27] MEDS: SERTRALINE HCL 50 MG TABLET (FP) PO SCH (09:50)
[2019-05-27] MEDS: PRENATAL VITAMINS W/ FOLIC ACID TABLET (FP) PO SCH (09:50)
[2019-05-27] MEDS: TOLNAFTATE 1% CREAM 15 GM TUBE TP SCH ×2 (09:51→22:42)
[2019-05-27] MEDS: NICOTINE 7 MG/24 HOURS TOPICAL PATCH TD SCH (09:52)
[2019-05-27] MEDS ORDERED: PALIPERIDONE PALMITATE 156 MG IM ONE (10:00)
[2019-05-27] MEDS: THIAMINE HCL 100 MG TABLET (FP) PO SCH (22:42)
[2019-05-27] MEDS: traZODone HCL 100 MG TABLET (FP) PO SCH (22:42)
[2019-05-28] MEDS: BACLOFEN 10 MG TABLET (FP) PO SCH ×3 (07:42→21:57)
[2019-05-28] MEDS: PRENATAL VITAMINS W/ FOLIC ACID TABLET (FP) PO SCH (10:08)
[2019-05-28] MEDS: TOLNAFTATE 1% CREAM 15 GM TUBE TP SCH ×2 (10:09→21:57)
[2019-05-28] MEDS: NICOTINE 7 MG/24 HOURS TOPICAL PATCH TD SCH (10:09)
[2019-05-28] MEDS: SERTRALINE HCL 50 MG TABLET (FP) PO SCH (11:08)
[2019-05-28] MEDS ORDERED: PT OWN MED DRAWER 7, Y5N ONE (19:35)
[2019-05-28] MEDS: traZODone HCL 100 MG TABLET (FP) PO SCH (21:57)
[2019-05-28] MEDS: THIAMINE HCL 100 MG TABLET (FP) PO SCH (21:58)
[2019-05-29] MEDS: BACLOFEN 10 MG TABLET (FP) PO SCH ×3 (06:45→21:28)
[2019-05-29] MEDS: PRENATAL VITAMINS W/ FOLIC ACID TABLET (FP) PO SCH (09:51)
[2019-05-29] MEDS: SERTRALINE HCL 50 MG TABLET (FP) PO SCH (09:51)
[2019-05-29] MEDS: NICOTINE 7 MG/24 HOURS TOPICAL PATCH TD SCH (09:51)
[2019-05-29] MEDS: TOLNAFTATE 1% CREAM 15 GM TUBE TP SCH ×2 (09:51→21:28)
[2019-05-29] MEDS: MAG HYDROX/AL HYDROX/SIMETH 30 ML UNIT-DOSE CUP PO PRN (18:12)
[2019-05-29] MEDS: traZODone HCL 100 MG TABLET (FP) PO SCH (21:28)
[2019-05-29] MEDS: THIAMINE HCL 100 MG TABLET (FP) PO SCH (21:29)
[2019-05-30] MEDS: BACLOFEN 10 MG TABLET (FP) PO SCH (07:27)
[2019-05-30 08:31] VITALS: PULSE 67
[2019-05-30] MEDS: SERTRALINE HCL 50 MG TABLET (FP) PO SCH (09:45)
[2019-05-30] MEDS: PRENATAL VITAMINS W/ FOLIC ACID TABLET (FP) PO SCH (09:45)
[2019-05-30] MEDS: NICOTINE 7 MG/24 HOURS TOPICAL PATCH TD SCH (09:45)
[2019-05-30] MEDS: TOLNAFTATE 1% CREAM 15 GM TUBE TP SCH ×2 (09:45→22:01)
[2019-05-30] MEDS ORDERED: BACLOFEN 10 MG TABLET (FP) PO PRN (11:21)
[2019-05-30] MEDS: THIAMINE HCL 100 MG TABLET (FP) PO SCH (22:01)
[2019-05-30] MEDS: traZODone HCL 100 MG TABLET (FP) PO SCH (22:02)
[2019-05-31 07:34] VITALS: BP 107/67; TEMP 98
[2019-05-31] MEDS: TOLNAFTATE 1% CREAM 15 GM TUBE TP SCH ×2 (09:57→21:53)
[2019-05-31] MEDS: SERTRALINE HCL 50 MG TABLET (FP) PO SCH (09:57)
[2019-05-31] MEDS: PRENATAL VITAMINS W/ FOLIC ACID TABLET (FP) PO SCH (09:57)
[2019-05-31] MEDS: NICOTINE 7 MG/24 HOURS TOPICAL PATCH TD SCH (09:58)
[2019-05-31] MEDS: traZODone HCL 100 MG TABLET (FP) PO SCH (21:52)
[2019-05-31] MEDS: THIAMINE HCL 100 MG TABLET (FP) PO SCH (21:53)
[2019-06-01] MEDS: SERTRALINE HCL 50 MG TABLET (FP) PO SCH (09:53)
[2019-06-01] MEDS: PRENATAL VITAMINS W/ FOLIC ACID TABLET (FP) PO SCH (09:53)
[2019-06-01] MEDS: TOLNAFTATE 1% CREAM 15 GM TUBE TP SCH (09:53)
[2019-06-01] MEDS: NICOTINE 7 MG/24 HOURS TOPICAL PATCH TD SCH (09:53)
--- NOTE | 2019-06-01 16:10 | DS ---
[facility] Rehab Discharge Summary - [facility] Rehab Discharge Summary Admission Date: 05/10/19 Discharge Date: 06/01/19 - History Present History: Alcohol dependence, Cannabis dependence, Cocaine dependence - Discharge Physical Exam Vital Signs: Vital Signs Temperature 98.0 F 05/31/19 06:10 Pulse Rate 67 05/31/19 06:10 Respiratory Rate 18 06/01/19 03:32 Blood Pressure 107/67 05/31/19 06:10 O2 Sat by Pulse Oximetry (%) Pertinent Admission Physical Exam Findings: Laboratory Last Values WBC 4.9 K/mm3 (4.0-10.0) 05/10/19 15:15 RBC 4.72 M/mm3 (3.60-5.2) 05/10/19 15:15 Hgb 12.5 GM/dL (10.7-15.3) 05/10/19 15:15 Hct 38.6 % (32.4-45.2) 05/10/19 15:15 MCV 81.7 fl (80-96) 05/10/19 15:15 MCH 26.4 pg (25.7-33.7) 05/10/19 15:15 MCHC 32.3 g/dl (32.0-36.0) 05/10/19 15:15 RDW 15.8 % (11.6-15.6) H 05/10/19 15:15 Plt Count 220 K/MM3 (134-434) 05/10/19 15:15 MPV 8.2 fl (7.5-11.1) 05/10/19 15:15 Sodium 145 mmol/L (136-145) 05/10/19 15:15 Potassium 3.6 mmol/L (3.5-5.1) 05/10/19 15:15 Chloride 110 mmol/L (98-107) H 05/10/19 15:15 Carbon Dioxide 30 mmol/L (21-32) 05/10/19 15:15 Anion Gap 5 MMOL/L (8-16) L 05/10/19 15:15 BUN 10.0 mg/dL (7-18) 05/10/19 15:15 Creatinine 0.7 mg/dL (0.55-1.3) 05/10/19 15:15 Est GFR (CKD-EPI)AfAm 115.45 05/10/19 15:15 Est GFR (CKD-EPI)NonAf 99.62 05/10/19 15:15 POC Glucometer 88 UNITS (80-120) 05/17/19 06:37 Random Glucose 116 mg/dL (74-106) H 05/10/19 15:15 Calcium 8.4 mg/dL (8.5-10.1) L 05/10/19 15:15 Total Bilirubin 0.2 mg/dL (0.2-1) 05/10/19 15:15 AST 15 U/L (15-37) 05/10/19 15:15 ALT 23 U/L (13-61) 05/10/19 15:15 Alkaline Phosphatase 68 U/L (45-117) 05/10/19 15:15 Total Protein 6.5 g/dl (6.4-8.2) 05/10/19 15:15 Albumin 3.1 g/dl (3.4-5.0) L 05/10/19 15:15 Vitamin B12 712 pg/ml (193-986) 05/15/19 10:25 Urine Color Yellow 05/13/19 08:50 Urine Appearance Clear 05/13/19 08:50 Urine pH 8.0 (5.0-8.0) 05/13/19 08:50 Ur Specific [place] 1.015 (1.010-1.035) 05/13/19 08:50 Urine Protein Negative (NEGATIVE) 05/13/19 08:50 Urine Glucose (UA) Negative (NEGATIVE) 05/13/19 08:50 Urine Ketones Negative (NEGATIVE) 05/13/19 08:50 Urine Blood Trace (NEGATIVE) 05/13/19 08:50 Urine Nitrite Negative (NEGATIVE) 05/13/19 08:50 Urine Bilirubin Negative (NEGATIVE) 05/13/19 08:50 Urine Urobilinogen 0.2 mg/dL (0.2-1.0) 05/13/19 08:50 Ur Leukocyte Esterase Negative (NEGATIVE) 05/13/19 08:50 Urine WBC (Auto) 2 /hpf (0-5) 05/13/19 08:50 Urine RBC (Auto) 4 /hpf (0-4) 05/13/19 08:50 Urine Casts (Auto) 1 /lpf (0-8) 05/13/19 08:50 U Epithel Cells (Auto) 6.6 /HPF (0-5/HPF) 05/13/19 08:50 Urine Bacteria (Auto) 109.9 /hpf (NEGATIVE) 05/13/19 08:50 POC Urine HCG, Qual Negative 05/10/19 15:01 RPR Titer Nonreactive (NONREACTIVE) 05/10/19 15:15 Hep A IgM Ab Confirm Negative 05/16/19 06:00 Hepatitis A Ab Total No Result Required. 05/16/19 06:00 Hep Bs Antigen Negative 05/16/19 06:00 Hep Bs Antibody No Result Required. 05/16/19 06:00 Hep B Core Total Ab No Result Required. 05/16/19 06:00 Hep B Core IgM Ab Negative 05/16/19 06:00 Hepatitis Be Antibody No Result Required. 05/16/19 06:00 Hepatitis Be Antigen No Result Required. 05/16/19 06:00 Hep C Ab Diagnostic <0.1 s/co ratio (0.0-0.9) 05/15/19 10:25 - Treatment Discharge Condition: Discharge condition good - Medication Discharge Medications: Ambulatory Orders Risperidone Microspheres [Risperdal Consta] 12.5 mg IM 05/10/19 Paliperidone Palmitate [Invega Sustenna] 156 mg IM MONTHLY 05/24/19 - Medication-Assisted Treatment (MAT) Medication-Assisted Treatment (MAT): No - Discharge Instructions Diet, activity, other medical instructions: Diet: Regular Activity: No restrictions Other medical instructions: - Diagnosis (1) Alcohol dependence with uncomplicated withdrawal Status: Acute (2) Cannabis dependence Status: Chronic (3) Cocaine dependence Status: Chronic Qualifiers: Substance use status: uncomplicated Qualified Code(s): F14.20 - Cocaine dependence, uncomplicated (4) Nicotine dependence Status: Chronic Qualifiers: Nicotine product type: cigarettes Substance use status: in withdrawal Qualified Code(s): F17.213 - Nicotine dependence, cigarettes, with withdrawal (5) Peripheral neuropathy Status: Chronic Qualifiers: Peripheral neuropathy type: polyneuropathy, unspecified Qualified Code(s): G62.9 - Polyneuropathy, unspecified (6) Anemia Status: Resolved - AMA Did Patient Leave Against Medical Advice: No Additional Comments: Patient not examined by this provider, patient refused to wait to be examined
== END 2019-06-01 15:25 | disposition home or self-care (01) | DRG 772 ==
LOC: YASAS 11:39 → Y3E 15:27
PROVIDERS: ADMIT Allergy & Immunology; ATTEND Allergy & Immunology
PROC: HZ42ZZZ Group Counseling for Substance Abuse Treatment, Cognitive-Behavioral (ICD-10-PCS; principal; 2019-05-10)
DX: F10.20 Alcohol dependence, uncomplicated (principal); F14.20 Cocaine dependence, uncomplicated; F12.20 Cannabis dependence, uncomplicated; F17.210 Nicotine dependence, cigarettes, uncomplicated; F19.282 Other psychoactive substance dependence with psychoactive substance-induced sleep disorder; F19.24 Other psychoactive substance dependence with psychoactive substance-induced mood disorder; F25.9 Schizoaffective disorder, unspecified; F42.4 Excoriation (skin-picking) disorder; G62.9 Polyneuropathy, unspecified; D64.9 Anemia, unspecified; L30.9 Dermatitis, unspecified; M12.9 Arthropathy, unspecified; R01.1 Cardiac murmur, unspecified; Z91.410 Personal history of adult physical and sexual abuse; Z91.013 Allergy to seafood; Z91.018 Allergy to other foods; Z91.011 Allergy to milk products; Z90.79 Acquired absence of other genital organ(s); Z91.5 Personal history of self-harm; Z59.0 Homelessness
CPT/HCPCS: 36415; 80053; 81003; 81025; 82607; 82962; 85027; 86593; 86704; 86706; 86707; 86708; 86709; 86803; 87340; 93005; 93010; J0475; J2794; Q0162

== ENCOUNTER 2024-03-10 14:16 | Inpatient (IN) | payer OTHER ==
[2024-03-10 14:55] VITALS: BMI 23.3
[2024-03-10] MEDS ORDERED: MAG HYDROX/AL HYDROX/SIMETH 30 ML UNIT-DOSE CUP PO PRN (17:13)
[2024-03-10] MEDS ORDERED: hydrOXYzine PAMOATE 25 MG CAPSULE (FP) PO PRN (17:13)
[2024-03-10] MEDS ORDERED: IBUPROFEN 600 MG TABLET (FP) PO PRN (17:13)
[2024-03-10] MEDS ORDERED: ONDANSETRON *ODT* 4 MG TABLET SL PRN (17:13)
[2024-03-10] MEDS ORDERED: POLYETHYLENE GLYCOL (HEALTHYLAX) 3350 17 GM PACKET PO PRN (17:13)
[2024-03-10] MEDS ORDERED: LOPERAMIDE HCL 2 MG CAPSULE PO PRN (17:13)
[2024-03-10] MEDS ORDERED: guaiFENesin 600 MG TABLET.ER (FP) PO PRN (17:13)
[2024-03-10] MEDS ORDERED: IBUPROFEN 400 MG TABLET (FP) PO PRN (17:13)
[2024-03-10] MEDS ORDERED: METHOCARBAMOL 500 MG TABLET PO PRN (17:13)
[2024-03-10] MEDS ORDERED: BENZOCAINE/MENTHOL (CHLORASEPTIC ) LOZENGE MM PRN (17:13)
[2024-03-10] MEDS ORDERED: NALOXONE (NARCAN) HCL 4 MG/0.1 ML SPRAY NS PRN (17:13)
[2024-03-10] MEDS ORDERED: DICYCLOMINE HCL 10 MG CAPSULE PO PRN (17:13)
[2024-03-10] MEDS ORDERED: BENZONATATE 200 MG CAPSULE PO PRN (17:13)
[2024-03-10] MEDS ORDERED: MAGNESIUM HYDROX 2400MG/30ML ORAL SUSPENSION 30 ML CUP PO PRN (17:13)
[2024-03-10] MEDS ORDERED: ACETAMINOPHEN 325 MG TABLET (FP) PO PRN (17:13)
[2024-03-10] MEDS ORDERED: BISMUTH SUBSALICYLATE 524 MG/30 ML PO PRN (17:13)
[2024-03-10] MEDS: chlordiazePOXIDE HCL 25 MG CAPSULE PO PRN (18:39)
[2024-03-10] MEDS: THIAMINE 100 MG TABLET PO SCH (22:29)
[2024-03-10] MEDS: MELATONIN 5 MG TABLETS PO SCH (22:29)
[2024-03-10] MEDS: chlordiazePOXIDE HCL 25 MG CAPSULE PO SCH (22:30)
[2024-03-11] MEDS: PRENATAL VITAMINS W/ FOLIC ACID TABLET (FP) PO SCH (10:19)
[2024-03-11] MEDS: NICOTINE 21 MG/24 HOURS TOPICAL PATCH TD SCH (10:19)
[2024-03-12] MEDS: chlordiazePOXIDE HCL 25 MG CAPSULE PO SCH (05:11)
[2024-03-12] MEDS: LOSARTAN POTASSIUM 25 MG TABLET PO SCH (12:30)
[2024-03-13] MEDS ORDERED: chlordiazePOXIDE HCL 10 MG CAPSULE PO PRN
[2024-03-13] MEDS: chlordiazePOXIDE HCL 10 MG CAPSULE PO SCH (05:55)
[2024-03-14] MEDS: chlordiazePOXIDE HCL 10 MG CAPSULE PO SCH (05:54)
[2024-03-14] MEDS: NALOXONE (NYS OPIOID OVERDOSE PROGRAM) 4 MG/0.1 ML SPRAY NS SCH (13:13)
[2024-03-15] MEDS: chlordiazePOXIDE HCL 10 MG CAPSULE PO ONE (05:42)
[2024-03-15 09:51] VITALS: BP 107/61; PULSE 99; RESP 18; TEMP 97.1
== END 2024-03-15 12:25 | disposition home or self-care (01) | DRG 774 ==
LOC: YASAS 14:16 → Y6N 18:04
PROVIDERS: ADMIT Allergy & Immunology; ATTEND Surgery
PROC: HZ2ZZZZ Detoxification Services for Substance Abuse Treatment (ICD-10-PCS; principal; 2024-03-10)
DX: F10.230 Alcohol dependence with withdrawal, uncomplicated (principal); F14.20 Cocaine dependence, uncomplicated; F12.20 Cannabis dependence, uncomplicated; F17.210 Nicotine dependence, cigarettes, uncomplicated; F25.9 Schizoaffective disorder, unspecified; I10 Essential (primary) hypertension; K21.9 Gastro-esophageal reflux disease without esophagitis; R63.4 Abnormal weight loss; Z68.23 Body mass index [BMI] 23.0-23.9, adult; Z59.00 Homelessness unspecified
CPT/HCPCS: 93005; 93010